=== PATIENT | male | born 1945 | race Caucasian/White ===

== ENCOUNTER 2016-03-09 13:44 | Outpatient (CLI) | payer MEDICARE, OTHER | END 2016-03-09 13:45 | disposition home or self-care (01) | DX: G47.33 Obstructive sleep apnea (adult) (pediatric) (principal) | CPT/HCPCS: 99214; G0463 ==

== ENCOUNTER 2016-04-04 19:29 | Outpatient (CLI) | payer MEDICARE, OTHER | END 2016-04-04 19:30 | disposition home or self-care (01) | DX: G47.33 Obstructive sleep apnea (adult) (pediatric) (principal); G47.61 Periodic limb movement disorder; Z68.41 Body mass index [BMI] 40.0-44.9, adult ==

== ENCOUNTER 2016-04-06 14:43 | Outpatient (CLI) | payer MEDICARE, OTHER | END 2016-04-06 14:44 | disposition home or self-care (01) | LOC: SC 14:43 | PROVIDERS: ATTEND Nurse Practitioner Family | DX: G47.33 Obstructive sleep apnea (adult) (pediatric) (principal) | CPT/HCPCS: 99214; G0463; 99212 ==

== ENCOUNTER 2016-05-17 11:19 | Outpatient (CLI) | payer MEDICARE, OTHER | END 2016-05-17 11:20 | disposition home or self-care (01) | DX: G47.33 Obstructive sleep apnea (adult) (pediatric) (principal); G47.61 Periodic limb movement disorder | CPT/HCPCS: 99215; G0463 ==

== ENCOUNTER 2016-05-30 09:09 | Outpatient (CLI) | payer MEDICARE, OTHER | END 2016-05-30 09:10 | DX: E11.9 Type 2 diabetes mellitus without complications (principal); G47.9 Sleep disorder, unspecified; M51.86 Other intervertebral disc disorders, lumbar region; I10 Essential (primary) hypertension ==

== ENCOUNTER 2016-06-15 10:43 | Outpatient (CLI) | payer MEDICARE, OTHER | END 2016-06-15 10:44 | disposition home or self-care (01) | DX: G47.33 Obstructive sleep apnea (adult) (pediatric) (principal) | CPT/HCPCS: 99213; G0463 ==

== ENCOUNTER 2016-09-14 10:37 | Outpatient (CLI) | payer MEDICARE, OTHER | END 2016-09-14 10:38 | disposition home or self-care (01) | LOC: SC 10:37 | PROVIDERS: ATTEND Nurse Practitioner Family | DX: G47.33 Obstructive sleep apnea (adult) (pediatric) (principal) | CPT/HCPCS: 99214; G0463; 99212 ==

== ENCOUNTER 2016-12-08 15:09 | Outpatient (CLI) | payer MEDICARE, OTHER ==
[2016-12-08 14:08] LABS: ALBUMIN/GLOBULIN RATIO 1.1 (1.0-2.2); BILIRUBIN,TOTAL 0.6 mg/dL (0.2-1.0); CALCIUM 9.2 mg/dL (8.5-10.3); CREATININE 1.1 mg/dL (0.6-1.2); POTASSIUM 4.1 mmol/L (3.5-5.0); TOTAL PROTEIN 7.5 g/dL (6.7-8.2)
[2016-12-08 14:28] LABS: HEMOGLOBIN A1C 0.73 g/dL
== END 2016-12-08 15:10 | disposition home or self-care (01) ==
LOC: LAB.WCP 15:09
PROVIDERS: ATTEND Family Medicine
DX: E11.9 Type 2 diabetes mellitus without complications (principal); M51.86 Other intervertebral disc disorders, lumbar region; I63.9 Cerebral infarction, unspecified; I25.10 Atherosclerotic heart disease of native coronary artery without angina pectoris
CPT/HCPCS: 36415; 80053; 83036

== ENCOUNTER 2016-12-15 10:15 | Outpatient (CLI) | payer MEDICARE, OTHER | END 2016-12-15 10:16 | disposition home or self-care (01) | LOC: SC 10:15 | PROVIDERS: ATTEND Nurse Practitioner Family | DX: G47.33 Obstructive sleep apnea (adult) (pediatric) (principal) | CPT/HCPCS: 99213; G0463; 99212 ==

== ENCOUNTER 2017-06-23 10:19 | Outpatient (CLI) | payer MEDICARE, OTHER ==
[2017-06-23 13:33] LABS: HB2 TOTAL 16.4 g/dL; HEMOGLOBIN A1C 0.78 g/dL; HEMOGLOBIN A1C % 6.5 % (4.6-6.2)
[2017-06-23 13:47] LABS: ALBUMIN 4.1 g/dL (3.2-5.5); ALBUMIN/GLOBULIN RATIO 1.1 (1.0-2.2); BILIRUBIN,TOTAL 0.7 mg/dL (0.2-1.0); CALCIUM 9.1 mg/dL (8.5-10.3); TOTAL PROTEIN 7.8 g/dL (6.7-8.2)
== END 2017-06-23 10:20 | disposition home or self-care (01) ==
LOC: LAB.WCP 10:19
PROVIDERS: ATTEND Family Medicine
DX: E11.9 Type 2 diabetes mellitus without complications (principal)
CPT/HCPCS: 36415; 80053; 83036

== ENCOUNTER 2017-07-14 09:13 | Outpatient (CLI) | payer MEDICARE, OTHER ==
[2017-07-14] MEDS ORDERED: ALBUTEROL NEB 2.5 MG/3 ML INH ONE (11:00)
--- NOTE | 2017-07-14 13:30 | CT Report ---
CT CHEST WITHOUT CONTRAST: 07/14/2017 CLINICAL INDICATION: Dyspnea. TECHNIQUE: Axial CT images of the chest were obtained without intravenous contrast. COMPARISON: No previous chest CT is available for comparison. FINDINGS: The heart and great vessels demonstrate postoperative changes of previous cardiac surgery and mild atherosclerotic calcifications. No hilar or mediastinal lymphadenopathy is appreciated. Lungs are clear. No effusion or pneumothorax is present. Osseous structures demonstrate degenerative and postoperative changes. Limited evaluation of the upper abdominal structures demonstrates normal adrenal glands. IMPRESSION: POSTOPERATIVE CHANGES. NO EVIDENCE OF ACUTE CARDIOPULMONARY DISEASE. CT DOSE REDUCTION STATEMENT In accordance with CT protocol optimization, one or more of the following dose reduction techniques were utilized for this exam: automated exposure control, adjustment of mA and/or KV based on patient size, or use of iterative reconstructive technique. TD: 07/14/2017 11:10
== END 2017-07-14 09:14 | disposition home or self-care (01) ==
LOC: DI 09:13
PROVIDERS: ATTEND Family Medicine
DX: R06.00 Dyspnea, unspecified (principal); Z77.090 Contact with and (suspected) exposure to asbestos
CPT/HCPCS: 71250; 94060; 94729

== ENCOUNTER 2018-05-29 07:35 | Emergency (ER) | payer MEDICARE, OTHER ==
--- NOTE | 2018-05-29 07:55 | ED Physician Documentation ---
PD HPI MALE - Stated complaint Stated Complaint: UNABLE TO URINATE - Chief complaint Chief Complaint: Abd Pain - History obtained from History obtained from: Patient - History of Present Illness Timing - onset: How many days ago (3) Timing - duration: Days (3) Timing - details: Abrupt onset, Still present Associated symptoms: Unable to urinate Similar symptoms before: Diagnosis (urinary retention) Recently seen: Not recently seen - Additional information Additional information: 72-year-old male who is not been into see the doctor in over a year has developed acute urinary retention. He states this is happened to him once previ ously he is not been able to urinate since Monday. Today is Monday. He indicates that he is developed some increasing pain in his lower abdomen over the last 24 hours. He is accompanied here by his son who indicates that he may have some of his days mixed up. Review of Systems Constitutional: denies: Fever Eyes: denies: Decreased vision Ears: denies: Ear pain Nose: denies: Congestion Throat: denies: Sore throat Cardiac: denies: Chest pain / pressure Respiratory: denies: Dyspnea, Cough GI: reports: Abdominal Pain. denies: Nausea, Vomiting, Constipation, Diarrhea : reports: Unable to Void Skin: denies: Rash Musculoskeletal: denies: Neck pain, Back pain, Extremity pain PD PAST MEDICAL HISTORY - Past Medical History Cardiovascular: [place] - Past Surgical History Ortho: Carpal Tunnel surgery Cardiovascular: CABG - Allergies Allergies/Adverse Reactions: Allergies Allergy/AdvReac Type Severity Reaction Status Date / Time No Known Drug Allergies Allergy Verified 05/29/18 07:50 PD ED PE NORMAL - Vitals Vital signs reviewed: Yes (tachy and hypertensive marked. 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, No motor deficit, No sensory deficit, Normal speech Eye Opening: Spontaneous Motor: Obeys Commands Verbal: Oriented GCS Score: 15 - Psych Psych: Normal mood, Normal affect Results - Vitals Vitals: Vital Signs - 24 hr 05/29/18 05/29/18 07:47 09:01 Temperature 36.2 C L Heart Rate 132 H 94 Respiratory 24 18 Rate Blood Pressure 166/121 H 141/94 H O2 Saturation 96 96 Oxygen O2 Source Room air - Labs Labs: Laboratory Tests 05/29/18 07:55 Urine Color YELLOW Urine Clarity CLEAR Urine pH 7.0 Ur Specific [place] 1.015 Urine Protein NEGATIVE Urine Glucose (UA) NEGATIVE Urine Ketones NEGATIVE Urine Occult Blood NEGATIVE Urine Nitrite NEGATIVE Urine Bilirubin NEGATIVE Urine Urobilinogen 0.2 (NORMAL) Ur Leukocyte Esterase NEGATIVE Ur Microscopic Review NOT INDICATED Urine Culture Comments NOT INDICATED PD MEDICAL DECISION MAKING - ED course Complexity details: reviewed results, re-evaluated patient, considered differential, d/w patient, d/w family ED course: 72-year-old male with acute urinary retention has Womack catheter placed with greater than 1 L of urine return. He will need to keep his catheter in place until follow-up Departure - Departure Disposition: 01 Home, Self Care Clinical Impression: Urinary retention Condition: Stable Instructions: ED Retention Urinary Male Follow-Up: Abran Burt MD [Primary Care Provider] -
[2018-05-29 08:17] LABS: BILIRUBIN,URINE NEGATIVE (NEGATIVE); GLUCOSE, URINE (UA) NEGATIVE (NEGATIVE); KETONES,URINE (UA) NEGATIVE (NEGATIVE); LEUKOCYTE ESTERASE, URINE NEGATIVE (NEGATIVE); NITRITE,URINE NEGATIVE (NEGATIVE); OCCULT BLOOD,URINE NEGATIVE (NEGATIVE); PROTEIN,URINE NEGATIVE (NEGATIVE); UROBILINOGEN,URINE 0.2 (NORMAL) E.U./dL (NORMAL)
[2018-05-29 08:33] LABS: CLARITY,URINE CLEAR (CLEAR)
[2018-05-29 09:01] VITALS: BP 141/94
== END 2018-05-29 09:28 | disposition home or self-care (01) ==
LOC: ED 07:35
DX: R33.9 Retention of urine, unspecified (principal)
CPT/HCPCS: 51702; 81001; 81003; 87086; 99283

== ENCOUNTER 2018-06-04 08:00 | Outpatient (CLI) | payer MEDICARE, OTHER ==
[2018-06-04 13:08] LABS: BILIRUBIN,URINE NEGATIVE (NEGATIVE); GLUCOSE, URINE (UA) NEGATIVE (NEGATIVE); KETONES,URINE (UA) NEGATIVE (NEGATIVE); LEUKOCYTE ESTERASE, URINE MODERATE (NEGATIVE); NITRITE,URINE NEGATIVE (NEGATIVE); OCCULT BLOOD,URINE NEGATIVE (NEGATIVE); PROTEIN,URINE NEGATIVE (NEGATIVE); UROBILINOGEN,URINE 0.2 (NORMAL) E.U./dL (NORMAL)
[2018-06-04 13:11] LABS: CLARITY,URINE HAZY (CLEAR)
[2018-06-04 13:24] LABS: BACTERIA,URINE Few /HPF (None Seen); MUCUS,URINE Few Strands; RBC,URINE 0-5 /HPF (0-5); SQUAMOUS EPITHELIAL CELL,UR RARE Squamous (<= Few)
== END 2018-06-04 23:59 | disposition home or self-care (01) ==
LOC: LAB.WCP 08:00
PROVIDERS: ATTEND Family Medicine
DX: R31.9 Hematuria, unspecified (principal)
CPT/HCPCS: 36415; 81001; 81003; 87077; 87086; 87181

== ENCOUNTER 2018-06-08 08:00 | Outpatient (CLI) | payer MEDICARE, OTHER ==
[2018-06-08 13:01] LABS: BASOPHILS % (AUTO) 0.4 %; EOSINOPHILS # (AUTO) 0.2 10^3/uL (0.0-0.7); EOSINOPHILS % (AUTO) 1.8 %; HGB - HEMOGLOBIN 14.1 g/dL (14.0-18.0); LYMPHOCYTES # (AUTO) 2.1 10^3/uL (1.5-3.5); LYMPHOCYTES % (AUTO) 20.1 %; MEAN CORPUSCULAR HEMOGLOBIN 29.6 pg (27.0-31.0); MEAN CORPUSCULAR HGB CONC 33.1 g/dL (32.0-36.0); MEAN CORPUSCULAR VOLUME 89.5 fL (80.0-94.0); MEAN PLATELET VOLUME 7.7 fL (7.4-11.4); MONOCYTES # (AUTO) 0.7 10^3/uL (0.0-1.0); NEUTROPHILS # (AUTO) 7.5 10^3/uL (1.5-6.6); NEUTROPHILS % (AUTO) 70.7 %; PLT - PLATELET COUNT 314 10^3/uL (130-450); RED BLOOD COUNT 4.77 10^6/uL (4.70-6.10); RED CELL DISTRIBUTION WIDTH 14.1 % (12.0-15.0); WHITE BLOOD COUNT 10.6 x10^3/uL (4.8-10.8)
[2018-06-08 13:37] LABS: ALBUMIN 3.9 g/dL (3.2-5.5); ALKALINE PHOSPHATASE 69 IU/L (42-121); ALT ALANINE AMINOTRANSFERASE 20 IU/L (10-60); AST ASPARTATE AMINOTRANSFERASE 21 IU/L (10-42); BILIRUBIN,TOTAL 0.6 mg/dL (0.2-1.0); BUN - BLOOD UREA NITROGEN 15 mg/dL (6-20); CALCIUM 9.6 mg/dL (8.5-10.3); CARBON DIOXIDE - CO2 32 mmol/L (21-32); CHLORIDE 100 mmol/L (101-111); CHOL/HDL RATIO 2.8 (<5.0); CHOLESTEROL 176 mg/dL; GFR - MDRD 73 (>89); GLUCOSE 132 mg/dL (70-100); HDL CHOLESTEROL 63 mg/dL; LDL CHOLESTEROL,CALCULATED 96 mg/dL; LDL/HDL RATIO 1.5 (<3.6); SODIUM 138 mmol/L (135-145); TOTAL PROTEIN 7.7 g/dL (6.7-8.2); VLDL CHOLESTEROL 17 mg/dL
== END 2018-06-08 23:59 | disposition home or self-care (01) ==
LOC: LAB.WCP 08:00
PROVIDERS: ATTEND Family Medicine
DX: I63.9 Cerebral infarction, unspecified (principal); I10 Essential (primary) hypertension; E78.5 Hyperlipidemia, unspecified
CPT/HCPCS: 36415; 80053; 80061; 83721; 84443; 85025

== ENCOUNTER 2018-07-16 11:30 | Outpatient (CLI) | payer MEDICARE, OTHER ==
[2018-07-16 19:25] LABS: CREATININE,URINE 263.3 mg/dL; MICROALBUMIN,URINE 2.9 mg/dL (0-300.0)
[2018-07-16 20:04] LABS: HB2 TOTAL 14.4 g/dL; HEMOGLOBIN A1C 0.83 g/dL; HEMOGLOBIN A1C % 7.4 % (4.6-6.2)
== END 2018-07-16 11:31 | disposition home or self-care (01) ==
LOC: LAB.WCP 11:30
PROVIDERS: ATTEND Family Medicine
DX: E11.9 Type 2 diabetes mellitus without complications (principal)
CPT/HCPCS: 36415; 82043; 82570; 83036

== ENCOUNTER 2018-07-24 12:18 | Outpatient (CLI) | payer MEDICARE, OTHER | END 2018-07-24 12:19 | disposition home or self-care (01) | LOC: LAB.WCP 12:18 | PROVIDERS: ATTEND Family Medicine | DX: R41.3 Other amnesia (principal) | CPT/HCPCS: 36415; 82607; 83921 ==

== ENCOUNTER 2018-07-26 09:51 | Outpatient (CLI) | payer MEDICARE, OTHER ==
[2018-07-26] MEDS ORDERED: GADOBUTROL 15 MMOL/15 ML VIAL IVP ONE (10:37)
[2018-07-26] MEDS ORDERED: GADOBUTROL 15 MMOL/15 ML VIAL ONE (10:42)
--- NOTE | 2018-07-26 20:10 | MRI Report ---
Reason: MEMORY IMPAIRMENT,CVA Procedure Date: 07/26/2018 Accession Number: [id number] / [id number] Procedure: MRI - Brain W/WO CPT Code: FULL RESULT: EXAM: MRI BRAIN WITHOUT AND WITH CONTRAST EXAM DATE: 07/26/2018 11:00 AM. CLINICAL HISTORY: MEMORY IMPAIRMENT,CVA. COMPARISON: BRAIN W/WO 05/20/2013 3:52 PM. TECHNIQUE: Multiplanar, multisequence T1-weighted and fluid-sensitive MR sequences of the brain were performed. Sequences optimized for routine evaluation. Other: None. IV Contrast: Without and with contrast, 12 cc of Gadavist. FINDINGS: Diffusion weighted sequence shows no evidence for acute infarct. There is no mass, mass effect, midline shift or abnormal extraaxial fluid collection. Size and configuration of the ventricles are normal. Chronic lacunar type infarcts in right thalamus, left posterolateral thalamus and posterior left putamen/baugh radiata. Ill-defined T2 hyperintensities are seen in the periventricular and deep cerebral white matter bilaterally compatible with chronic microvascular angiopathy. Ill-defined T2 hyperintensity also seen in the dorsal and central billie, slightly progressive compared to previous study 05/20/2013. Major intracranial flow voids appear normal. Limited evaluation of the arteries and dural venous sinus structures on postcontrast imaging appears normal. There is no abnormal enhancement. Globes, orbits, optic nerve sheath complex, optic chiasm, pituitary, cavernous sinus and Meckel's cave appear normal. Paranasal sinuses and mastoid air cells appear well aerated. Marrow signal and extracranial soft tissue appear normal. Craniocervical junction and visualized upper cervical cord appear unremarkable. IMPRESSION: 1. No acute infarct, intracranial hemorrhage, midline shift, or hydrocephalus. 2. Remote lacunar type infarcts in the left baugh radiata, in bilateral thalami, unchanged. 3. Ill-defined nonspecific T2 hyperintensities in the periventricular and deep supratentorial cerebral white matter bilaterally similar to MRI brain 05/20/2013, most likely chronic microvascular angiopathy. Ill-defined T2 hyperintensities in the central and dorsal billie appear increased compared to 2013, likely interval progressive microvascular changes. 4. Qualitatively, there is progressive left greater than right hippocampal volume loss as evidenced by increased size of the left temporal horn. Findings could be correlated with progressive neurodegenerative etiology such as Alzheimer's type dementia. RADIA
== END 2018-07-26 09:52 | disposition home or self-care (01) ==
LOC: DI 09:51
PROVIDERS: ATTEND Family Medicine
DX: R41.3 Other amnesia (principal); Z86.73 Personal history of transient ischemic attack (TIA), and cerebral infarction without residual deficits; R93.0 Abnormal findings on diagnostic imaging of skull and head, not elsewhere classified
CPT/HCPCS: 70553; A9585

== ENCOUNTER 2018-08-08 21:26 | Outpatient (CLI) | payer MEDICARE, OTHER | END 2018-08-08 21:27 | disposition EMS.NT | LOC: EMS 21:26 | PROVIDERS: ATTEND Surgery | DX: Z03.89 Encounter for observation for other suspected diseases and conditions ruled out (principal) ==

== ENCOUNTER 2018-08-09 12:59 | Emergency (ER) | payer MEDICARE, OTHER ==
--- NOTE | 2018-08-09 13:01 | ED Physician Documentation ---
PD HPI MALE - Stated complaint Stated Complaint: MALE - History obtained from History obtained from: Patient - History of Present Illness Timing - onset: Today, Last night Timing - duration: Days (1/2) Timing - details: Abrupt onset, Still present Associated symptoms: Unable to urinate Similar symptoms before: Diagnosis (UTI with retention.) Review of Systems Constitutional: denies: Fever, Chills GI: denies: Abdominal Pain, Nausea, Vomiting, Diarrhea : reports: Frequency, Incontinent (For the last week or so) PD PAST MEDICAL HISTORY - Past Medical History Cardiovascular: CT Neuro: CVA - Past Surgical History Ortho: Carpal Tunnel surgery Cardiovascular: CABG - Present Medications Home Medications: Ambulatory Orders Medication Instructions Recorded Confirmed Cephalexin [Keflex] 500 mg PO TID #20 capsule 08/09/18 - Allergies Allergies/Adverse Reactions: Allergies Allergy/AdvReac Type Severity Reaction Status Date / Time lisinopril Allergy Unknown Verified 08/09/18 13:06 horse serum Allergy Unknown Uncoded 08/09/18 13:06 - Social History Does the pt smoke?: No Smoking Status: Never smoker PD ED PE NORMAL - Vitals Vital signs reviewed: Yes - General General: Alert and oriented X 3 (poor short term memory), No acute distress, Well developed/nourished - Abdomen Abdomen: Soft, Non tender - Male Male : Other (normal external genitalia) - Back Back: No CVA TTP - Derm Derm: Normal color, Warm and dry Results - Vitals Vitals: Vital Signs - 24 hr 08/09/18 13:03 Temperature 36.7 C Heart Rate 53 L Respiratory 18 Rate Blood Pressure 151/105 H O2 Saturation 96 Oxygen O2 Source Room air - Labs Labs: Laboratory Tests 08/09/18 14:10 Urine Color YELLOW Urine Clarity CLEAR Urine pH 6.0 Ur Specific [place] <=1.005 Urine Protein NEGATIVE Urine Glucose (UA) NEGATIVE Urine Ketones NEGATIVE Urine Occult Blood NEGATIVE Urine Nitrite NEGATIVE Urine Bilirubin NEGATIVE Urine Urobilinogen 0.2 (NORMAL) Ur Leukocyte Esterase SMALL H Urine RBC None Seen Urine WBC 4-5 Ur Squamous Epith Cells NONE SEEN Urine Bacteria Moderate H Urine Casts 0-2 Hyaline Casts Ur Microscopic Review INDICATED Urine Culture Comments INDICATED PD MEDICAL DECISION MAKING - ED course Complexity details: considered differential (The patient was having symptoms consistent with urinary retention. Bladder scanner showed greater than 700 mL. A Womack catheter was placed which improved his symptoms quite a bit and he drained readily without any bladder clots. There is a trace of UTI on her his urine test. We will keep the Womack in place to a leg bag and prescribe antibiotics. We will have him follow-up with his primary care early next week which would be about 4 days, to have the catheter removed and see if he is able to urinate better at that point after the antibiotics have had time to work.), d/w patient, d/w family (son) Departure - Departure Disposition: Home, Self Care Clinical Impression: Acute urinary retention UTI (urinary tract infection) Qualifiers: Urinary tract infection type: acute cystitis Hematuria presence: without hematuria Qualified Code(s): N30.00 - Acute cystitis without hematuria Condition: Stable Record reviewed to determine appropriate education?: Yes Instructions: ED UTI Cystitis Male Follow-Up: Abran Burt MD [Primary Care Provider] - Prescriptions: Cephalexin [Keflex] 500 mg PO TID #20 capsule Comments: There does appear to be some infection on the urine test. The culture will result in a few days to confirm. Meanwhile we will treated with cephalexin antibiotic 3 times a day for a week. We will have you keep the Womack catheter in until early next week to give time for the antibiotic to help clear the infection and that should promote the ability to urinate once the catheter is out. Call your primary care today or tomorrow for a follow-up appointment for early next week for catheter removal. Alternatively he can return to the ER.
[2018-08-09 13:06] VITALS: BP 151/105
[2018-08-09] MEDS ORDERED: LIDOCAINE 2% URO-JET 5 ML SYRINGE UR STA (13:28)
[2018-08-09 14:20] LABS: BILIRUBIN,URINE NEGATIVE (NEGATIVE); GLUCOSE, URINE (UA) NEGATIVE (NEGATIVE); KETONES,URINE (UA) NEGATIVE (NEGATIVE); LEUKOCYTE ESTERASE, URINE SMALL (NEGATIVE); NITRITE,URINE NEGATIVE (NEGATIVE); OCCULT BLOOD,URINE NEGATIVE (NEGATIVE); PROTEIN,URINE NEGATIVE (NEGATIVE); UROBILINOGEN,URINE 0.2 (NORMAL) E.U./dL (NORMAL)
[2018-08-09 14:23] LABS: CLARITY,URINE CLEAR (CLEAR)
[2018-08-09 14:36] LABS: BACTERIA,URINE Moderate /HPF (None Seen); CASTS, URINE 0-2 Hyaline Casts /LPF; RBC,URINE None Seen /HPF (0-5); SQUAMOUS EPITHELIAL CELL,UR NONE SEEN (<= Few)
[2018-08-09] MEDS ORDERED: cephALEXin 250 MG CAPSULE PO STA (14:43)
== END 2018-08-09 15:19 | disposition home or self-care (01) ==
LOC: ED 12:59
DX: N30.00 Acute cystitis without hematuria (principal); R33.9 Retention of urine, unspecified
CPT/HCPCS: 51703; 81001; 87077; 87086; 87181; 99283; A9270; 81003

== ENCOUNTER 2018-08-13 16:53 | Emergency (ER) | payer MEDICARE, OTHER ==
--- NOTE | 2018-08-13 17:44 | ED Physician Documentation ---
PD HPI MALE - Stated complaint Stated Complaint: MALE - Chief complaint Chief Complaint: General - History obtained from History obtained from: Patient - History of Present Illness Timing - onset: How many days ago (had urinary retention and UTI, on meds. Son says patient is very weak and not wanting to eat nor drink. Son also noted some drainage/pus around the meatus where pitts goes in.) Timing - details: Gradual onset, Still present Associated symptoms: Genital sore / lesion (discharge at meatus) Review of Systems Constitutional: denies: Fever Nose: denies: Rhinorrhea / runny nose, Congestion Respiratory: denies: Dyspnea, Cough GI: denies: Abdominal Pain, Vomiting, Diarrhea PD PAST MEDICAL HISTORY - Past Medical History Cardiovascular: [place] Neuro: CVA : Retention - Past Surgical History Past Surgical History: Yes Ortho: Carpal Tunnel surgery Cardiovascular: CABG - Present Medications Home Medications: Ambulatory Orders Medication Instructions Recorded Confirmed Cephalexin [Keflex] 500 mg PO TID #20 capsule 08/09/18 Nystatin 1 applic TP TID #15 oint...g. 08/13/18 - Allergies Allergies/Adverse Reactions: Allergies Allergy/AdvReac Type Severity Reaction Status Date / Time lisinopril Allergy Unknown Verified 08/13/18 17:07 horse serum Allergy Unknown Uncoded 08/09/18 13:06 - Social History Does the pt smoke?: No Smoking Status: Never smoker PD ED PE NORMAL - Vitals Vital signs reviewed: Yes - General General: Alert and oriented X 3, No acute distress, Well developed/nourished - HEENT HEENT: No: Moist mucous membranes - Neck Neck: Supple, no meningeal sign, No adenopathy - Cardiac Cardiac: RRR, No murmur - Respiratory Respiratory: Clear bilaterally - Abdomen Abdomen: Normal bowel sounds, Soft, Non tender - Male Male : Other (pitts in place and draining. There is some whitish discharge around the meatus and pitts, looking maybe yeast. Culture obtained. ) - Back Back: No CVA TTP - Derm Derm: Normal color, Warm and dry Results - Vitals Vitals: Oxygen O2 Source Room air - Labs Labs: Microbiology 08/13/18 18:25 Urine Culture - Final Urine,Catheterized NO AEROBIC GROWTH AT 24 HOURS 08/13/18 18:11 Wound Culture - Preliminary Skin - Penile Laboratory Tests 08/13/18 08/13/18 08/13/18 18:25 18:32 18:32 WBC 15.6 H RBC 4.08 L Hgb 11.4 L Hct 34.4 L MCV 84.4 MCH 27.9 MCHC 33.1 RDW 13.9 Plt Count 592 H MPV 6.5 L Neut # (Auto) 12.5 H Lymph # (Auto) 1.5 [place] # (Auto) 1.3 H Eos # (Auto) 0.3 Baso # (Auto) 0.1 Absolute Nucleated RBC 0.00 Nucleated RBC % 0.0 Sodium 130 L Potassium 3.8 Chloride 91 L Carbon Dioxide 28 Anion Gap 11.0 BUN 17 Creatinine 0.9 Estimated GFR (MDRD) 82 L Glucose 109 H Lactic Acid Calcium 9.2 Magnesium 1.6 L Total Bilirubin 0.6 AST 37 ALT 51 Alkaline Phosphatase 109 Total Protein 7.1 Albumin 2.3 L Globulin 4.8 H Albumin/Globulin Ratio 0.5 L Lipase 32 Urine Color YELLOW Urine Clarity CLEAR Urine pH 7.5 Ur Specific [place] 1.010 Urine Protein TRACE Urine Glucose (UA) NEGATIVE Urine Ketones NEGATIVE Urine Occult Blood NEGATIVE Urine Nitrite NEGATIVE Urine Bilirubin NEGATIVE Urine Urobilinogen 1 (NORMAL) Ur Leukocyte Esterase TRACE H Urine RBC None Seen Urine WBC 0-3 Ur Squamous Epith Cells NONE SEEN Urine Bacteria None Seen Urine Casts 0-2 Hyaline Casts Ur Microscopic Review INDICATED Urine Culture Comments INDICATED 08/13/18 18:32 WBC RBC Hgb Hct MCV MCH MCHC RDW Plt Count MPV Neut # (Auto) Lymph # (Auto) [place] # (Auto) Eos # (Auto) Baso # (Auto) Absolute Nucleated RBC Nucleated RBC % Sodium Potassium Chloride Carbon Dioxide Anion Gap BUN Creatinine Estimated GFR (MDRD) Glucose Lactic Acid 1.2 Calcium Magnesium Total Bilirubin AST ALT Alkaline Phosphatase Total Protein Albumin Globulin Albumin/Globulin Ratio Lipase Urine Color Urine Clarity Urine pH Ur Specific [place] Urine Protein Urine Glucose (UA) Urine Ketones Urine Occult Blood Urine Nitrite Urine Bilirubin Urine Urobilinogen Ur Leukocyte Esterase Urine RBC Urine WBC Ur Squamous Epith Cells Urine Bacteria Urine Casts Ur Microscopic Review Urine Culture Comments PD MEDICAL DECISION MAKING - ED course Complexity details: considered differential (Son says he is seeking help through PMD for home health aide or assisted living, feeling he is not able to continue full care of his father, needing help. I put in SW and Home Health referrals to see if they can provide help.), d/w patient Departure - Departure Disposition: 01 Home, Self Care Clinical Impression: Infection of penis, General weakness Condition: Stable Record reviewed to determine appropriate education?: Yes Follow-Up: Abran Burt MD [Primary Care Provider] - Prescriptions: Nystatin 1 applic TP TID #15 oint...g. Comments: Continue the Pitts catheter for now. Follow-up with your primary care in a few more days. It does look like the bladder infection is clearing based on the urine test. I think the discharge around the tip of the penis may be a small fungal infection and use some nystatin cream 2-3 times a day to that area. Encourage frequent fluids. I did put in consults to our social work and home health nursing to see if they can provide assistance for assessments at home and treatment there and also help for care in home for you. They also could possibly provide information for placement if the if you feel that becomes necessary. I presume they will call you in the morning or sometime tomorrow to help with information. Discharge Date/Time: 08/13/18 21:25
[2018-08-13] MEDS ORDERED: SODIUM CHLORIDE 0.9% 1,000 ML IV ONE (18:16)
[2018-08-13 18:38] LABS: BASOPHILS # (AUTO) 0.1 10^3/uL (0.0-0.1); BASOPHILS % (AUTO) 0.3 %; EOSINOPHILS # (AUTO) 0.3 10^3/uL (0.0-0.7); EOSINOPHILS % (AUTO) 1.8 %; HGB - HEMOGLOBIN 11.4 g/dL (14.0-18.0); LYMPHOCYTES # (AUTO) 1.5 10^3/uL (1.5-3.5); LYMPHOCYTES % (AUTO) 9.7 %; MEAN CORPUSCULAR HEMOGLOBIN 27.9 pg (27.0-31.0); MEAN CORPUSCULAR HGB CONC 33.1 g/dL (32.0-36.0); MEAN CORPUSCULAR VOLUME 84.4 fL (80.0-94.0); MEAN PLATELET VOLUME 6.5 fL (7.4-11.4); MONOCYTES # (AUTO) 1.3 10^3/uL (0.0-1.0); MONOCYTES % (AUTO) 8.5 %; NEUTROPHILS # (AUTO) 12.5 10^3/uL (1.5-6.6); NEUTROPHILS % (AUTO) 79.7 %; PLT - PLATELET COUNT 592 10^3/uL (130-450); RED BLOOD COUNT 4.08 10^6/uL (4.70-6.10); RED CELL DISTRIBUTION WIDTH 13.9 % (12.0-15.0); WHITE BLOOD COUNT 15.6 x10^3/uL (4.8-10.8)
[2018-08-13 18:38] LABS: BILIRUBIN,URINE NEGATIVE (NEGATIVE); GLUCOSE, URINE (UA) NEGATIVE (NEGATIVE); KETONES,URINE (UA) NEGATIVE (NEGATIVE); LEUKOCYTE ESTERASE, URINE TRACE (NEGATIVE); NITRITE,URINE NEGATIVE (NEGATIVE); OCCULT BLOOD,URINE NEGATIVE (NEGATIVE); PH,URINE 7.5 PH (5.0-7.5); PROTEIN,URINE TRACE mg/dL (NEGATIVE); UROBILINOGEN,URINE 1 (NORMAL) E.U./dL (NORMAL)
[2018-08-13 18:41] LABS: CLARITY,URINE CLEAR (CLEAR)
[2018-08-13 18:49] LABS: BACTERIA,URINE None Seen /HPF (None Seen); RBC,URINE None Seen /HPF (0-5); SQUAMOUS EPITHELIAL CELL,UR NONE SEEN (<= Few)
[2018-08-13 18:50] LABS: CASTS, URINE 0-2 Hyaline Casts /LPF
[2018-08-13 18:51] LABS: ALBUMIN 2.3 g/dL (3.2-5.5); ALBUMIN/GLOBULIN RATIO 0.5 (1.0-2.2); BILIRUBIN,TOTAL 0.6 mg/dL (0.2-1.0); CALCIUM 9.2 mg/dL (8.5-10.3); CREATININE 0.9 mg/dL (0.6-1.2); MAGNESIUM 1.6 mg/dL (1.7-2.8); TOTAL PROTEIN 7.1 g/dL (6.7-8.2)
[2018-08-13] MEDS ORDERED: MAGNESIUM SULFATE 2 GRAM 2 GM/50 ML BAG IV ONE (19:11)
[2018-08-13] MEDS ORDERED: FLUCONAZOLE 100 MG TABLET PO STA (19:49)
[2018-08-13 21:17] VITALS: BP 125/79
== END 2018-08-13 21:25 | disposition home or self-care (01) ==
LOC: ED 16:53
DX: N48.29 Other inflammatory disorders of penis (principal); R53.1 Weakness; Z86.73 Personal history of transient ischemic attack (TIA), and cerebral infarction without residual deficits
CPT/HCPCS: 36415; 80053; 81001; 83605; 83690; 83735; 85025; 87070; 87086; 87205; 96374; 99283; 99284; A9270; 81003; 87077; 87181

== ENCOUNTER 2018-08-27 11:56 | Outpatient (CLI) | payer MEDICARE, OTHER | END 2018-08-27 11:57 | disposition critical access hospital (66) | LOC: EMS 11:56 | PROVIDERS: ATTEND Surgery | DX: R53.1 Weakness (principal); R11.2 Nausea with vomiting, unspecified; R07.9 Chest pain, unspecified | CPT/HCPCS: A0425; A0427 ==

== ENCOUNTER 2018-08-27 12:32 | Inpatient (IN) | payer MEDICARE, OTHER ==
[2018-08-27 13:13] LABS: GLUCOSE, URINE (UA) NEGATIVE (NEGATIVE); KETONES,URINE (UA) 15 mg/dL (NEGATIVE); LEUKOCYTE ESTERASE, URINE NEGATIVE (NEGATIVE); NITRITE,URINE NEGATIVE (NEGATIVE); OCCULT BLOOD,URINE SMALL (NEGATIVE); PH,URINE 5.5 PH (5.0-7.5); PROTEIN,URINE 30 mg/dL (NEGATIVE); UROBILINOGEN,URINE 1 (NORMAL) E.U./dL (NORMAL)
[2018-08-27 13:17] LABS: BILIRUBIN,URINE NEGATIVE (NEGATIVE); CLARITY,URINE CLEAR (CLEAR); ICTOTEST,URINE NEGATIVE
[2018-08-27 13:26] LABS: RBC,URINE 0-5 /HPF (0-5)
[2018-08-27 13:27] LABS: AMORPHOUS SEDIMENT,UR Few /LPF; BACTERIA,URINE Rare /HPF (None Seen); SQUAMOUS EPITHELIAL CELL,UR NONE SEEN (<= Few)
[2018-08-27 13:27] LABS: BASOPHILS # (AUTO) 0.1 10^3/uL (0.0-0.1); BASOPHILS % (AUTO) 0.4 %; EOSINOPHILS % (AUTO) 0.1 %; HGB - HEMOGLOBIN 12.1 g/dL (14.0-18.0); LYMPHOCYTES # (AUTO) 1.2 10^3/uL (1.5-3.5); LYMPHOCYTES % (AUTO) 5.4 %; MEAN CORPUSCULAR HEMOGLOBIN 27.4 pg (27.0-31.0); MEAN CORPUSCULAR HGB CONC 32.7 g/dL (32.0-36.0); MEAN CORPUSCULAR VOLUME 83.7 fL (80.0-94.0); MEAN PLATELET VOLUME 8.5 fL (7.4-11.4); MONOCYTES # (AUTO) 1.6 10^3/uL (0.0-1.0); MONOCYTES % (AUTO) 6.9 %; NEUTROPHILS # (AUTO) 19.6 10^3/uL (1.5-6.6); NEUTROPHILS % (AUTO) 85.5 %; PLT - PLATELET COUNT 599 10^3/uL (130-450); RED BLOOD COUNT 4.42 10^6/uL (4.70-6.10); RED CELL DISTRIBUTION WIDTH 13.5 % (12.0-15.0); WHITE BLOOD COUNT 22.9 x10^3/uL (4.8-10.8)
--- NOTE | 2018-08-27 13:28 | XRAY Report ---
Reason: weakness Procedure Date: 08/27/2018 Accession Number: [id number] / [id number] Procedure: XR - Chest 1 View X-Ray CPT Code: 22064 FULL RESULT: EXAM: CHEST RADIOGRAPHY EXAM DATE: 08/27/2018 01:14 PM. CLINICAL HISTORY: Weakness. COMPARISON: XR CHEST 1 VIEWS 07/21/2010 8:44 AM. TECHNIQUE: 1 view. FINDINGS: Lungs/Pleura: No focal airspace opacity. Lung volumes appear symmetric and without significant interval change. Negative for pneumothorax. Mediastinum: Heart size is normal. Trachea is midline. There is mild tortuosity and atherosclerotic calcification of the thoracic aorta. Other: None. IMPRESSION: Negative for an acute cardiopulmonary abnormality. RADIA
[2018-08-27] MEDS ORDERED: SODIUM CHLORIDE 0.9% 1,000 ML IV ONE ×3 (13:32→13:34)
[2018-08-27] MEDS ORDERED: cefTRIAXone 1 GM VIAL IVP STA (13:34)
--- NOTE | 2018-08-27 13:36 | ED Physician Documentation ---
History of Present Illness - Stated complaint Stated Complaint: WEAKNESS/L SIDE PAIN - Chief complaint Chief Complaint: Cardiac - History obtained from History obtained from: Patient, Family, EMS - History of Present Illness Timing: How many days ago (3) Pain level max: 0 Pain level now: 0 - Additonal information Additional information: 73-year-old male presents to the emergency department with increasing weakness and decreased mental status over the past 2 days. Recently treated for a catheter associated UTI. Has a chronic indwelling Womack. Son was unable to get him out of bed today. Patient is complaining of left shoulder pain as well. Worse with movement and better with rest. No fevers that they are aware of. He has been off antibiotics for 3 days. Has had nausea but no vomiting. No diarrhea. Family states that he slept all day yesterday in bed. Review of Systems Ten Systems: 10 systems reviewed and negative Constitutional: denies: Fever Throat: denies: Sore throat Cardiac: denies: Chest pain / pressure Respiratory: denies: Cough, Wheezing GI: denies: Vomiting, Diarrhea Skin: denies: Rash Musculoskeletal: denies: Neck pain, Back pain Neurologic: denies: Headache PD PAST MEDICAL HISTORY - Past Medical History Past Medical History: Yes Cardiovascular: IN Respiratory: None Neuro: CVA Endocrine/Autoimmune: None GI: None : Retention HEENT: None Psych: None Musculoskeletal: None Derm: None - Past Surgical History Past Surgical History: Yes Ortho: Carpal Tunnel surgery Cardiovascular: CABG - Present Medications Home Medications: Ambulatory Orders Medication Instructions Recorded Confirmed Acetaminophen 325 mg PO DAILY PRN 08/27/18 08/27/18 Baclofen 30 mg PO TID 08/27/18 08/27/18 Calcium Carbonate/Vitamin D3 1,200 mg PO DAILY 08/27/18 08/27/18 [Calcium 250-D Tablet] Clopidogrel [Plavix] 75 mg PO DAILY 08/27/18 08/27/18 Docusate Calcium 480 mg PO BID 08/27/18 08/27/18 Donepezil [Aricept] 5 mg PO DAILY 08/27/18 08/27/18 Finasteride 5 mg PO DAILY 08/27/18 08/27/18 Hydrochlorothiazide 25 mg PO DAILY 08/27/18 08/27/18 Losartan Potassium 100 mg PO DAILY 08/27/18 08/27/18 Metoprolol Tartrate 50 mg PO BID 08/27/18 08/27/18 Nitroglycerin 0.4 mg SL PRN PRN 08/27/18 08/27/18 [place]-3/Dha/Epa/Fish Oil [Fish Oil 1 tab PO DAILY 08/27/18 08/27/18 [place]-3 EC 1,200 mg] Simvastatin [Zocor] 40 mg PO DAILY 08/27/18 08/27/18 Tamsulosin [Flomax] 0.4 mg PO DAILY 08/27/18 08/27/18 Triamcinolone Acet/0.9%NaCl/Pf 80 mg REVIEW PRN PRN 08/27/18 08/27/18 [Triamcinolone Acet 80 mg/2 ml] Venlafaxine ER [Effexor ER] 75 mg PO DAILY 08/27/18 08/27/18 amLODIPine [Norvasc] 5 mg PO DAILY 08/27/18 08/27/18 metFORMIN [Glucophage] 500 mg PO DAILY 08/27/18 08/27/18 raNITIdine [Zantac] 300 mg PO BID 08/27/18 08/27/18 - Allergies Allergies/Adverse Reactions: Allergies Allergy/AdvReac Type Severity Reaction Status Date / Time lisinopril Allergy Unknown Verified 08/27/18 12:39 horse serum Allergy Unknown Uncoded 08/27/18 12:39 - Social History Does the pt smoke?: No Smoking Status: Never smoker Does the pt drink ETOH?: No Does the pt have substance abuse?: No - Immunizations Immunizations are current?: Yes - POLST Patient has POLST: No PD ED PE NORMAL - Vitals Vital signs reviewed: Yes - General General: No acute distress, Other (drowsy, but arousable.) - HEENT HEENT: Atraumatic, PERRL, Moist mucous membranes, Pharynx benign - Neck Neck: Supple, no meningeal sign - Cardiac Cardiac: RRR, Strong equal pulses - Respiratory Respiratory: No respiratory distress, Clear bilaterally - Abdomen Abdomen: Soft, Non tender, Non distended - Back Back: No spinal TTP - Derm Derm: Warm and dry - Extremities Extremities: Other (TTP L shoulder - limited ROM 2/2 pain. NVI.) - Neuro Neuro: Other (drowsy, but arousable) Results - Vitals Vitals: Vital Signs - 24 hr 08/27/18 08/27/18 08/27/18 12:35 12:42 15:06 Temperature 36.1 C L Heart Rate 98 118 H 108 H Respiratory 14 18 18 Rate Blood Pressure 118/81 H 102/71 108/74 O2 Saturation 92 92 93 Oxygen O2 Source Room air - Labs Labs: Laboratory Tests 08/27/18 08/27/18 08/27/18 13:00 13:07 13:07 WBC 22.9 H RBC 4.42 L Hgb 12.1 L Hct 37.0 L MCV 83.7 MCH 27.4 MCHC 32.7 RDW 13.5 Plt Count 599 H MPV 8.5 Neut # (Auto) 19.6 H Lymph # (Auto) 1.2 L [place] # (Auto) 1.6 H Eos # (Auto) 0.0 Baso # (Auto) 0.1 Absolute Nucleated RBC 0.00 Nucleated RBC % 0.0 Manual Slide Review Indicated RBC Morph Micro Appear 2+ ANISOCYTOSIS Sodium 131 L Potassium 3.6 Chloride 90 L Carbon Dioxide 24 Anion Gap 17.0 H BUN 15 Creatinine 1.0 Estimated GFR (MDRD) 73 L Glucose 188 H Lactic Acid Calcium 9.2 Total Bilirubin 1.3 H AST 66 H ALT 66 H Alkaline Phosphatase 147 H Troponin I Total Protein 7.6 Albumin 2.5 L Globulin 5.1 H Albumin/Globulin Ratio 0.5 L Lipase 40 Urine Color YELLOW Urine Clarity CLEAR Urine pH 5.5 Ur Specific [place] >=1.030 H Urine Protein 30 H Urine Glucose (UA) NEGATIVE Urine Ketones 15 H Urine Occult Blood SMALL H Urine Nitrite NEGATIVE Urine Bilirubin NEGATIVE Urine Urobilinogen 1 (NORMAL) Ur Leukocyte Esterase NEGATIVE Urine RBC 0-5 Urine WBC 0-3 Ur Squamous Epith Cells NONE SEEN Amorphous Sediment Few Urine Bacteria Rare Ur Microscopic Review INDICATED Urine Culture Comments NOT INDICATED 08/27/18 08/27/18 13:07 13:07 WBC RBC Hgb Hct MCV MCH MCHC RDW Plt Count MPV Neut # (Auto) Lymph # (Auto) [place] # (Auto) Eos # (Auto) Baso # (Auto) Absolute Nucleated RBC Nucleated RBC % Manual Slide Review RBC Morph Micro Appear Sodium Potassium Chloride Carbon Dioxide Anion Gap BUN Creatinine Estimated GFR (MDRD) Glucose Lactic Acid 1.2 Calcium Total Bilirubin AST ALT Alkaline Phosphatase Troponin I < 0.04 Total Protein Albumin Globulin Albumin/Globulin Ratio Lipase Urine Color Urine Clarity Urine pH Ur Specific [place] Urine Protein Urine Glucose (UA) Urine Ketones Urine Occult Blood Urine Nitrite Urine Bilirubin Urine Urobilinogen Ur Leukocyte Esterase Urine RBC Urine WBC Ur Squamous Epith Cells Amorphous Sediment Urine Bacteria Ur Microscopic Review Urine Culture Comments - Rads (name of study) L shoulder xray Radiology: Prelim report reviewed, EMP read contemporaneously (Moderate to marked degenerative changes), See rad report cxr Radiology: Prelim report reviewed, EMP read contemporaneously, See rad report (Negative for an acute cardiopulmonary abnormality. ) CT abd/pelvis Radiology: Prelim report reviewed, EMP read contemporaneously, See rad report (No significant inflammatory process or definite acute finding to explain clinical symptoms of abdominal pain. ) PD MEDICAL DECISION MAKING - ED course Complexity details: reviewed old records, reviewed results, re-evaluated patient, considered differential, d/w patient, d/w family, d/w technical assistance consultant ED course: 73-year-old male with leukocytosis of unclear etiology. He also has elevated liver tests, CT abdomen pelvis was performed, no acute findings. Possible recurrence UTI from his catheter? He also has hypertension and decreased mental status. Given IV fluids. Will place on antibiotics and will admit to the hospitalist. Discussed case with Dr. Andujar, hospitalist who accepts. Blood cultures were drawn as well. This document was made in part using voice recognition software. While efforts are made to proofread this document, sound alike and grammatical errors may occur. Departure - Departure Disposition: [facility] DC/Xfer Clinical Impression: Leukocytosis Qualifiers: Leukocytosis type: unspecified Qualified Code(s): D72.829 - Elevated white blood cell count, unspecified Hypotension Qualifiers: Hypotension type: unspecified hypotension type Qualified Code(s): I95.9 - Hypotension, unspecified Altered mental status Qualifiers: Altered mental status type: unspecified Qualified Code(s): R41.82 - Altered mental status, unspecified Condition: Stable Discharge Date/Time: 08/27/18 16:40
[2018-08-27 13:41] LABS: ALBUMIN 2.5 g/dL (3.2-5.5); ALBUMIN/GLOBULIN RATIO 0.5 (1.0-2.2); BILIRUBIN,TOTAL 1.3 mg/dL (0.2-1.0); CALCIUM 9.2 mg/dL (8.5-10.3); TOTAL PROTEIN 7.6 g/dL (6.7-8.2)
[2018-08-27 14:21] LABS: RBC MORPHOLOGY (MULTIPLE) 2+ ANISOCYTOSIS (NORMAL)
--- NOTE | 2018-08-27 14:22 | XRAY Report ---
Reason: L shoulder pain Procedure Date: 08/27/2018 Accession Number: [id number] / [id number] Procedure: XR - Shoulder 3 View LT CPT Code: FULL RESULT: EXAM: LEFT SHOULDER RADIOGRAPHY EXAM DATE: 08/27/2018 02:07 PM. CLINICAL HISTORY: L shoulder pain. COMPARISON: None. TECHNIQUE: 3 views. FINDINGS: Bones: Osteopenia. No definite fracture or other bone lesion. Joints: Moderate to marked degenerative changes. Anatomic alignment. Soft tissues: Clear visualized lung. IMPRESSION: Moderate to marked degenerative changes. RADIA
[2018-08-27] MEDS ORDERED: IOVERSOL 320 100 ML VIAL IVP ONE ×2 (14:42→16:46)
--- NOTE | 2018-08-27 15:20 | CT Report ---
Reason: abd pain, weakness. Procedure Date: 08/27/2018 Accession Number: [id number] / [id number] Procedure: CT - Abdomen/Pelvis W CPT Code: FULL RESULT: EXAM: CT ABDOMEN AND PELVIS EXAM DATE: 08/27/2018 03:04 PM. CLINICAL HISTORY: Abd pain, weakness. COMPARISONS: ABDOMEN/PELVIS W/WO 10/29/2013 11:49 AM. TECHNIQUE: Routine helical CT imaging was performed through the abdomen and pelvis. IV contrast: 100 cc Optiray 320 IV. Enteric contrast: No. Reconstructions: Coronal and sagittal. In accordance with CT protocol optimization, one or more of the following dose reduction techniques were utilized for this exam: automated exposure control, adjustment of mA and/or KV based on patient size, or use of iterative reconstructive technique. FINDINGS: Lung Bases: Unremarkable. Liver: No focal liver lesion or intrahepatic biliary dilatation. Gallbladder/Bile Ducts: Unremarkable. Spleen: Normal. Pancreas: Normal. Adrenal Glands: Normal. Kidneys: There are bilateral renal cortical cysts. No hydronephrosis or renal mass. Peritoneal Cavity/Bowel: The bowel is normal in caliber. No abnormal fluid or gas collection. No lymphadenopathy. The appendix is well visualized and normal. Pelvic Organs: The urinary bladder is empty and decompressed with a Womack catheter. There are coarse calcifications in the prostate. No abnormal pelvic fluid collection or mass. Vasculature: There is diffuse moderate atherosclerotic vascular calcification. Bones: There is chronic multilevel degenerative disk disease. Other: None. IMPRESSION: 1. No significant inflammatory process or definite acute finding to explain clinical symptoms of abdominal pain. RADIA
[2018-08-27] MEDS ORDERED: ONDANSETRON 4 MG/2 ML VIAL IVP PRN (15:50)
[2018-08-27] MEDS ORDERED: ONDANSETRON ODT 4 MG TABLET TL PRN (15:50)
[2018-08-27] MEDS ORDERED: SODIUM CHLORIDE FLUSH 0.9% 10 ML SYRINGE IVP PRN (15:50)
[2018-08-27] MEDS ORDERED: ACETAMINOPHEN 325 MG TABLET PO PRN (15:50)
[2018-08-27] MEDS ORDERED: oxyCODONE 5 MG TABLET PO PRN (15:50)
[2018-08-27] MEDS ORDERED: LACTATED RINGERS 2,381.37 ML IV STA (15:52)
[2018-08-27] MEDS ORDERED: VANCOMYCIN INJ 1.25 GM in SODIUM CHLORIDE 0.9% 250 ML IV STA (15:52)
[2018-08-27] MEDS ORDERED: PIPERACILLIN/TAZOBACTAM 4.5 GM in SODIUM CHLORIDE 0.9% MINIBAG 100 ML IV STA (15:53)
[2018-08-27] MEDS ORDERED: VANCOMYCIN INJ 2 GM in SODIUM CHLORIDE 0.9% 500 ML IV STA (15:53)
[2018-08-27] MEDS ORDERED: SODIUM CHLORIDE 0.9% 1,000 ML IV SCH (16:00)
[2018-08-27] MEDS: CEFEPIME 2 GM in SODIUM CHLORIDE 0.9% MINIBAG 100 ML IV SCH (17:32)
[2018-08-27] MEDS: metroNIDAZOLE 500 MG/100 ML 500 MG/100 ML BAG IV SCH (17:46)
[2018-08-27] MEDS: SODIUM CHLORIDE FLUSH 0.9% 10 ML SYRINGE IVP SCH (17:55)
[2018-08-27] MEDS ORDERED: SODIUM CHLORIDE 0.9% 500 ML IV ONE (20:57)
[2018-08-27] MEDS: SODIUM CHLORIDE 0.9% 500 ML IV PRN (21:20)
--- NOTE | 2018-08-27 22:55 | HISTORY & PHYSICAL EXAMINATION ---
DATE OF SERVICE: 08/27/2018 Physician: Venita Andujar MD ADMITTING PROVIDER: Venita Andujar MD PRIMARY CARE PROVIDER: Abran Burt MD POWER OF FUR BLOWER: Son, Carlin Piedra Jr., phone [phone]. CHIEF COMPLAINT: Unable to get out of bed for the last two days. HISTORY OF PRESENT ILLNESS: The patient is a 73-year-old man whose cardiovascular and cerebrovascular risk factors for arteriosclerosis include male sex, hypertension, hyperlipidemia, and a new diagnosis of diabetes in June of this year. He has had bypass surgery in 2000 with a BRANDT to the LAD and 3 saphenous vein grafts. He has also had a stroke in 2010 that left him with right body residual and cognitive deficits. His son said that he has actually been doing well considering his stroke. He definitely has some cognitive deficits, but he was able to drive a car, walk with a walker, take his own medications, doing his own meals up until probably April of this year. The son feels that dad took a sharp cognitive decline. No explanation. No falls. No new diagnosis of any diseases. He just was not doing well. His memory became acutely worse. His legs were starting to get weak. By May, he was having christina symptoms of prostatism with urinary retention, nocturia, decreased stream, and he was put on Flomax. In May, he was seen in the emergency room for this history and had a Womack, and antibiotics. By June, he was seen by his PCP and although the symptoms of prostatism were stable, his memory loss continued to decline. During his PCP visit in June 2018, he was diagnosed as new diabetes, but did not appear to be severe, and he was put on metformin. In an effort to evaluate the memory loss, he underwent an MRI, and he had lacunar infarcts, bilateral thalamic infarcts, putamen infarcts, and baugh radiata infarcts. All of them appeared old and nothing was acute. The suggestion was this is the same finding that he had in 2010 with his old strokes. Nothing to explain why he was acutely deteriorating. On 08/09/2018, he was seen in our emergency room with another episode of urinary retention. He could not pee and had another Womack and was placed on antibiotics in the form of Keflex. He returned on 08/13/2018 because he was weak, and there was purulent drainage around the meatus where the Womack catheter touched. It was felt to be fungal. He was continued on his Keflex. By then, he was needing help. The son felt like he could not take care of his dad anymore because of the sharp deterioration between April and July. As such, social work was notified, and the son is in the process of trying to contact people to help him take care of his dad at home. Dad has always said that he wanted to remain at home and never go to live at a longterm facility. He has been off antibiotics for three days. He has been refusing to eat for the last two or three days, especially yesterday. He sat in bed all day long yesterday. Refused to get up, and was sleeping. Today when he refused to get out of bed, the son decided to bring him in. There is no fever, chills, sweats. He is just getting weak, cannot get out of bed, seems foggier and foggier in his thought process. No food seems good to him and he just actively is avoiding eating or drinking for sure the last day, but it started two to three days ago. The son says that he has been able to get an appointment with neurology on 09/25/2018 up at [place], and he is going to keep that appointment. He was seen in the emergency room, where temperature was 36.1. Pulse was 118, blood pressure 118/81, respirations 14, 92% on room air. He is a very weak, elderly gentleman with diffuse weakness, no focal findings. Low hoarse voice. Clear lungs and a benign belly. He is mildly hyponatremic at 131, anion gap is high at 17. Glucose is 188, GFR 78, lactic acid 1.2. Newly elevated liver enzymes with a total bilirubin of 1.3, AST 66, ALT 66 and alkaline phosphatase of 147. Troponin is less than 0.04. You can see where he is developing malnutrition, and his albumin is 2.5. White cell count is elevated to 22.9 thousand with hemoglobin 12.1. Urinalysis with the Womack in place shows proteinuria, ketonuria, small amount of occult blood. Negative leukocyte esterase. No squamous epithelial cells. Rare bacteria. As such, culture is not going to be done. Chest x-ray is negative for acute cardiopulmonary abnormality. Shoulder x-ray because of complaints of left shoulder pain showed moderate to marked degenerative changes, but anatomic alignment is present. With the elevated liver enzymes, a CT of the abdomen and pelvis was done. Lung bases are unremarkable. No focal liver lesion or intrahepatic biliary dilatation. His gallbladder is unremarkable and the ducts are unremarkable. Spleen and pancreas are normal. Bilateral renal cortical cysts. In his peritoneal cavity, the bowel is good. Appendix is well visualized and normal. Coarse calcifications in the prostate. Moderate atherosclerotic vascular disease is seen. There is no clinical inflammatory process or acute findings to explain his elevated liver enzymes, fever. He is now placed in inpatient admission with an elevated white cell count, elevated liver enzymes, inability to walk, dehydration on physical exam with a dry mouth. PAST MEDICAL HISTORY 1. Histoplasmosis with left lung resection in the [place] in 1964. He had some shortness of breath in 2017, and a CT of the chest June 2017 was negative other than for the left lung resection. PFTs showed an FVC of 2.82 liters and FEV1 of 1.9 liters with an FEV1/FVC of 68%. 2. Gastroesophageal reflux disease. 3. Hypertension. 4. 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 5. History of coronary artery disease with bypass surgery in 2000 at [facility]. CT coronary angiogram done in followup in 2012 shows an intact BRANDT to the LAD and three saphenous vein grafts that are all patent. A Myoview stress test in 2014, done in followup, showed an ejection fraction of 71%, and an echo done March 2014 shows an ejection fraction of 55% with a hypokinetic LAD distribution area. He started having dyspnea on exertion March 2017. Echocardiogram showed anterolateral septal hypokinesis and his ejection fraction has dropped to 50% and he has moderate pulmonary regurgitation. A stress test done for that shortness of breath was negative for acute ischemia. 6. Benign prostatic hypertrophy with acute retention May 2018. Symptoms continue to this day. 7. Severe obstructive sleep apnea with an apnea-hypopnea index of 43. Seen in the sleep center in 2015, and he is on a CPAP mask. 8. Carpal tunnel syndrome with surgery. 9. Hyperlipidemia. 10. Chronic first-degree AV block on EKG. 11. Depression with insomnia and anxiety. MEDICATIONS 1. Tylenol 325 mg daily, can take up to 6 a day. 2. Norvasc 5 daily. 3. Baclofen 30 mg p.o. t.i.d. 4. Calcium carbonate with vitamin D 1200 mg daily. 5. Plavix 75 mg daily. 6. Docusate 480 mg b.i.d. 7. Aricept 5 mg daily. 8. Finasteride 5 mg daily. 9. Hydrochlorothiazide 25 mg daily. 10. Losartan 100 mg daily. 11. Metformin 500 mg daily. 12. Nitroglycerin sublingual p.r.n. 13. Fish oil tablets daily. 14. Zantac 300 b.i.d. 15. Zocor 40 mg daily. 16. Flomax 0.4 daily. 17. 0.9% sodium chloride triamcinolone cream for eczema. 18. Venlafaxine extended release 75 mg daily. SOCIAL HISTORY: He is retired from the [employer]. 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 He has been twice. He used to smoke two to three packs per day for 25 years and quit in 2000 with his bypass surgery. He has never had any problem with alcohol abuse. He was living by himself until two years ago, when his son started coming to live with him because he needed more and more help. Again, the sharp deterioration in status since April of this year to now. FAMILY HISTORY: Dad of complications of an OH, but also high blood pressure. Mom of metastatic lung cancer to the brain and also had kidney cancer. He has no siblings. He has two children. One son, one daughter. His daughter is from his first marriage, and he has never kept in contact with her. Does not even know where she lives. His son has been very stressed out taking care of his dad and let his weight get out of control, so now he is overweight, hyperlipidemic and hypertensive. Prediabetic. Previous level of function was that of an elderly gentleman who had a right- sided residual from a stroke, but still able to drive, use a walker, feed himself and dress himself until two months ago. Now he can barely get out of bed to even sit to stand. He is completely dependent on his son. REVIEW OF SYSTEMS Very difficult to obtain in this fatigued, elderly gentleman. Not all review of systems able to be obtained, as he would close his eyes and drift off to sleep and then wake up again. GENERAL: He denies fevers, chills, sweats. HEENT: He said it is getting harder to swallow, but not painful. Everything tastes bad. Mouth is very dry. PULMONARY: Shortness of breath, but no chest congestion, coughing, wheezing, definite decrease in cardiopulmonary endurance over the last two months that sharply declined. CARDIOVASCULAR: Denies edema, orthopnea, angina, or palpitations. GASTROINTESTINAL: Denies abdominal pain, change in bowel habits, blood in stool. No diarrhea. Severe anorexia over the last few weeks. JOINTS: Chronic low back pain, chronic joint stiffness, worse in the morning. Nothing new. Left shoulder hurts more than usual after a fall last week, but no effusions or redness to the joint. GENITOURINARY: With above prostatism. DERMATOLOGIC: No lesions. No rashes. No pruritus. PSYCHIATRIC: Very depressed. Giving up hope. Never wants to live in a longterm facility. ATMOSPHERIC TECHNICIAN: The stroke, the memory loss, diffuse weakness, suddenly worse over the last two to three months. No seizures. PHYSICAL EXAMINATION VITAL SIGNS: He was seen in his room after being transferred from the emergency room. His temperature is 36.1 and repeat is 36.5, pulse is 98-118, blood pressure 108/74, respirations 18, and he is 93% on room air. GENERAL: The gentleman is found lying quietly in his bed, staring off into space; unreactive to my presence, until I walked into his field of vision to introduce myself, and he does focus and look at me, but severe psychomotor slowing, low hoarse voice, and very, very dry lips. HEENT: The oral mucosa that is dry. Pupils are slowly reactive, but reactive. Sclerae nonicteric. Tongue midline, slow to move. Denies sore throat. Denies dysphagia or dysarthria, but he feels like he just does not want to swallow. NECK: Supple. No goiter or bruits. LUNGS: Clear to auscultation without crackles, rhonchi, or wheezing, and very slow, slow unlabored respiration with shallow breaths. HEART: PMI is normally placed with a regular rate and rhythm that is occasionally tachycardic. Systolic murmur at the apex. Not loud. ABDOMEN: Soft, hypoactive bowel sounds, nontender. No masses palpable. EXTREMITIES: Warm. No clubbing, cyanosis, or edema, and I have ordered ARLEEN hose. Passive range of motion on the left shoulder that hurts is doable. However, when I have him try to lift up his arm to abduct or abduct, he is unable to do it, but he says that right now he just feels so weak and the left shoulder is painful. NEUROLOGIC: He is oriented to person, place, but not date. Vague about what happened to bring him here. He can follow one-step commands, such as raise your arm, open your mouth, take a deep breath. He has right body weakness in comparison to the left body, but he is still able to move his arm, move his right leg. LABORATORY/DATA Sodium 131, potassium 3.6, anion gap 17, BUN 15, creatinine 1, GFR 73, glucose 188. Lactic acid 1.2, total bilirubin 1.3, AST 66, ALT 66, alkaline phosphatase 147. Troponin less than 0.04. White cell count is 22.9 thousand, hemoglobin 12.1, hematocrit 37. Platelets also elevated at 199. Urinalysis, chest x-ray, shoulder x-ray, abdomen and pelvis CT discussed as above. EKG has normal sinus rhythm with multiform PVCs, right axis deviation and a very slight RSR prime in V1, with very low voltage in V1. No acute ischemic ST changes. Prolonged QT interval of 501. ASSESSMENT/PLAN 1. Generalized weakness that is quite severe and progressive since April 2018. Accompanied by loss of appetite, low hoarse voice, stable residual deficits of previous stroke. Worsening cognitive deficits. MRI noncontributory in that it shows his old infarcts, but nothing new. At this time, infection is a cause of today's deterioration or rather this begins deterioration because he has an elevated white cell count. His white cell count on 08/13/2018 was 15, in May was 10. So this is an acute elevation. Plan: We will continue to investigate the cause of the patient's generalized weakness. It is good to know he has got a neurology appointment in the near future. Currently we will treat his acute weakness secondary to infection as seen in problem #2. Attestation that the patient will be evaluated for discharge within 96 hours. 2. Elevated white cell count, weakness, no fever, tachycardia. No obstructive picture seen on CT of the abdomen, so no cholecystitis. Negative abdominal exam. Urinalysis is noncontributory and negative without bacteria. CT of the abdomen is negative without any intraabdominal pathology. Blood cultures have been done. We will adjust antibiotics on the base of the culture. Hopefully, we can tailor down from the broad antibiotics I have ordered. I have ordered cefepime, Flagyl, and vancomycin until I can figure out where his infection is coming from. He does not meet sepsis criteria. 3. Abnormal liver function tests. CT of the abdomen did not show stones or biliary duct dilatation. Check hepatitis panel. You can get liver toxicity from his acetaminophen or simvastatin. We will check Tylenol level. Hold his statin while he is here. Check acute hepatitis panel. I do not think I am going to order an ultrasound of the liver because his CT of abdomen is negative. 4. Coronary artery disease history. Currently negative review of systems for chest pain, EKG is without acute ischemic changes and troponins are negative. 5. Benign prostatic hypertrophy history. Continue Proscar and Flomax. Continue Womack. 6. Obstructive sleep apnea. I spoke to the son, we will have to have him bring in his CPAP mask to the hospital. 7. Hypertension. Currently not a problem and is actually minimally hypotensive. We will hold off on his amlodipine and losartan. 8. New onset diabetes mellitus, type 2, without complications, not on long-term use of insulin. I explained to the son not to give his dad metformin when he is not eating or doing well. Metformin can cause lactic acidosis in that state. As such, he will be given IV fluids for hydration, sliding scale insulin for his glucose. I have written for a diabetic diet, but the patient states he just has no appetite. 9. Deep venous thrombosis prophylaxis will be ARLEEN [place]. 10. DO NOT RESUSCITATE status. He does have a POLST form that he signed with Dr. Burt. He is DO NOT RESUSCITATE, COMFORT MEASURES TO BE EMPHASIZED. DO NOT USE ANTIBIOTICS EXCEPT WHEN NEEDED FOR SYMPTOM MANAGEMENT. NO MEDICALLY- ASSISTED NUTRITION BY TUBE. In speaking to the son, dad would want to go home. He will explore with his father whether he will accept rehab at a longterm facility if it is short-term, but if his dad does not, he will take him home, and will hire private in-home care. BRANDIE: 08/27/2018 19:03 TD: 08/27/2018 19:16 RACHELLE
[2018-08-28] MEDS: CEFEPIME 2 GM in SODIUM CHLORIDE 0.9% MINIBAG 100 ML IV SCH ×3 (01:11→17:23)
[2018-08-28] MEDS: metroNIDAZOLE 500 MG/100 ML 500 MG/100 ML BAG IV SCH ×3 (01:22→17:23)
[2018-08-28] MEDS: SODIUM CHLORIDE FLUSH 0.9% 10 ML SYRINGE IVP SCH ×3 (01:33→18:50)
[2018-08-28 05:38] LABS: MUDS CUTOFF CONCENTRATIONS CUTOFF CONC BELOW:
[2018-08-28 05:55] LABS: AMPHETAMINE SCREEN,URINE NEGATIVE (NEGATIVE); BENZODIAZEPINES SCREEN, URINE NEGATIVE (NEGATIVE); COCAINE SCREEN URINE NEGATIVE (NEGATIVE); METHADONE SCREEN, URINE NEGATIVE (NEGATIVE); METHAMPHETAMINES SCREEN, URINE NEGATIVE (NEGATIVE); OPIATE SCREEN, URINE NEGATIVE (NEGATIVE); OXYCODONE SCREEN, URINE NEGATIVE (NEGATIVE); PROPOXYPHENE SCREEN, URINE NEGATIVE (NEGATIVE); TRICYCLIC ANTIDEPRESSANT,URINE NEGATIVE (NEGATIVE)
[2018-08-28] MEDS: VANCOMYCIN INJ 1.75 GM in SODIUM CHLORIDE 0.9% 500 ML IV SCH ×2 (05:58→18:59)
[2018-08-28 06:30] LABS: BASOPHILS # (AUTO) 0.1 10^3/uL (0.0-0.1); BASOPHILS % (AUTO) 0.4 %; EOSINOPHILS # (AUTO) 0.2 10^3/uL (0.0-0.7); HGB - HEMOGLOBIN 9.5 g/dL (14.0-18.0); LYMPHOCYTES # (AUTO) 1.7 10^3/uL (1.5-3.5); LYMPHOCYTES % (AUTO) 9.4 %; MEAN CORPUSCULAR HGB CONC 31.9 g/dL (32.0-36.0); MEAN CORPUSCULAR VOLUME 84.7 fL (80.0-94.0); MEAN PLATELET VOLUME 8.5 fL (7.4-11.4); MONOCYTES # (AUTO) 1.4 10^3/uL (0.0-1.0); MONOCYTES % (AUTO) 7.8 %; NEUTROPHILS # (AUTO) 14.7 10^3/uL (1.5-6.6); NEUTROPHILS % (AUTO) 80.6 %; PLT - PLATELET COUNT 472 10^3/uL (130-450); RED BLOOD COUNT 3.52 10^6/uL (4.70-6.10); RED CELL DISTRIBUTION WIDTH 13.8 % (12.0-15.0); WHITE BLOOD COUNT 18.2 x10^3/uL (4.8-10.8)
[2018-08-28 06:45] LABS: ALBUMIN 1.9 g/dL (3.2-5.5); ALBUMIN/GLOBULIN RATIO 0.5 (1.0-2.2); BILIRUBIN,TOTAL 0.7 mg/dL (0.2-1.0); CALCIUM 8.2 mg/dL (8.5-10.3); CREATININE 0.8 mg/dL (0.6-1.2)
[2018-08-28] MEDS: SENNA 8.6 MG TABLET PO SCH (10:22)
[2018-08-28] MEDS: DOCUSATE SODIUM 250 MG CAPSULE PO SCH (10:22)
[2018-08-28] MEDS: POLYETHYLENE GLYCOL 3350 17 GM PACKET PO SCH (10:22)
--- NOTE | 2018-08-28 16:06 | PROVIDER PROGRESS NOTE ---
Assessment/Plan - Problem List (1) Elevated WBC count Assessment/Plan: There is been improvement in white count after starting empiric IV antibiotics. No source was found: Chest x-ray negative, urine negative, no abdominal complaints. We will recheck the chest x-ray because of the pleuritic chest pain complaint. Continue empiric antibiotics until a source is found to focus treatment (2) General weakness Assessment/Plan: He was on a statin at home. This will be put on hold since it could have added to muscle weakness and his overall sensation of weakness. The blood pressure is only borderline, despite being off all his 3 blood pressure medications. If he was orthostatic, this may also have led to the weakness feeling. Physical therapy to evaluate starting tomorrow. (3) History of CVA with residual deficit Assessment/Plan: According to the record, the patient had memory problems and weakness on one side after a remote stroke. (4) Acute urinary retention Assessment/Plan: A Womack catheter was placed upon admission. (5) New onset type 2 diabetes mellitus Assessment/Plan: His metformin is currently on hold. We will order sliding scale insulin coverage and fingerstick glucose checks, and adjust him to a diabetic diet from regular diet (6) Anemia Assessment/Plan: This is likely from hemodilution. If there is no stabilization, will check B12, folate and iron panel peer (7) Hypokalemia Assessment/Plan: Likely related to poor p.o. intake. Replace potassium. Follow BMP daily (8) Lower urinary tract symptoms (LUTS) Assessment/Plan: Will resume his Finasteride and Flomax. (9) Hx of essential hypertension Assessment/Plan: His BP is in the 110 range without any of his usual blood pressure medications. The Amlodipine is on hold. (10) Depression Assessment/Plan: Will resume his antidepressant medications, watching for oversedation (11) RAFAT on CPAP Assessment/Plan: The home CPAP device was ordered to be used while here. (12) Hx of CABG Assessment/Plan: Patient has pain but he describes it only with a deep inspiration, the EKG had no acute changes and troponins were negative.. We will continue to hold the statin medicine as this may have added to his weakness (muscle weakness). (13) Elevated LFTs Assessment/Plan: Resolved with iv hydration - Current Meds Current Meds: Current Medications Generic Name Dose Route Start Last Admin Trade Name Freq PRN Reason Stop Dose Admin Docusate Sodium 250 - 500 mg 08/28/18 09:00 08/28/18 10:22 Colace 250mg Capsule PO 250 mg DAILY WES Administration Cefepime HCl 2 gm/ Sodium 100 mls @ 200 mls/hr 08/27/18 17:00 08/28/18 10:30 Chloride IV Infused Q8H WES Infusion Metronidazole 500 mg in 100 mls @ 100 mls/hr 08/27/18 17:00 08/28/18 12:28 Flagyl 500 Mg/100 Ml IV Infused Q8H WES Infusion Vancomycin HCl 1.75 gm/ Sodium 500 mls @ 250 mls/hr 08/28/18 06:00 08/28/18 10:08 Chloride IV Infused Q12H WES Infusion Sodium Chloride 500 mls @ 0 mls/hr 08/27/18 21:00 08/28/18 02:24 Normal Saline 0.9% IV 20 mls/hr Q24H PRN Infusion TKO RATE TKO Polyethylene Glycol 17 gm 08/28/18 09:00 08/28/18 10:22 Miralax PO 17 gm DAILY WES Administration Senna 8.6 - 17.2 mg 08/28/18 09:00 08/28/18 10:22 Senokot PO 8.6 mg DAILY WES Administration Sodium Chloride 10 ml 08/27/18 17:00 08/28/18 10:26 Normal Saline Flush 0.9% IVP 10 ml 0100,0900,1700 WES Administration - Lab Result Fish Bone Diagrams: 08/29/18 05:35 08/29/18 05:35 - Additional Planning My Orders: My Active Orders 08/29/18 Evaluate and Treat OT [OT] Routine Evaluate and Treat PT [PT] Routine Subjective - Subjective Patient Reports: Feeling Better, Resting Comfortably, Other (c/o pleuritic chest pain) Objective Vital Signs: Vital Signs - 24 hr 08/27/18 08/27/18 08/28/18 16:58 23:30 07:53 Temperature 36.5 C 36.2 C L 36.4 C L Heart Rate [ 102 H 90 95 Brachial] Respiratory 20 18 16 Rate Blood Pressure 118/59 L 117/59 L 120/60 [Right Brachial artery] O2 Saturation 96 93 97 Oxygen O2 Source Room air I&O (Last 24 Hrs): Intake and Output Totals x24h 08/26/18 08/27/18 08/28/18 23:59 23:59 23:59 Intake Total 4530.37 1121.333 Output Total 275 750 Balance 4255.37 371.333 General: Alert HEENT: Mucous membr. moist/pink Neck: Supple Neuro: Other (Weak on L) Cardiovascular: Regular rate, No murmurs Respiratory: No respiratory distress Extremities: No edema - Results Results: Laboratory Results WBC 18.2 x10^3/uL (4.8-10.8) H 08/28/18 05:42 RBC 3.52 10^6/uL (4.70-6.10) L 08/28/18 05:42 Hgb 9.5 g/dL (14.0-18.0) L 08/28/18 05:42 Hct 29.8 % (42.0-52.0) L 08/28/18 05:42 MCV 84.7 fL (80.0-94.0) 08/28/18 05:42 MCH 27.0 pg (27.0-31.0) 08/28/18 05:42 MCHC 31.9 g/dL (32.0-36.0) L 08/28/18 05:42 RDW 13.8 % (12.0-15.0) 08/28/18 05:42 Plt Count 472 10^3/uL (130-450) H 08/28/18 05:42 MPV 8.5 fL (7.4-11.4) 08/28/18 05:42 Neut # (Auto) 14.7 10^3/uL (1.5-6.6) H 08/28/18 05:42 Lymph # (Auto) 1.7 10^3/uL (1.5-3.5) 08/28/18 05:42 Coos # (Auto) 1.4 10^3/uL (0.0-1.0) H 08/28/18 05:42 Eos # (Auto) 0.2 10^3/uL (0.0-0.7) 08/28/18 05:42 Baso # (Auto) 0.1 10^3/uL (0.0-0.1) 08/28/18 05:42 Absolute Nucleated RBC 0.00 x10^3/uL 08/28/18 05:42 Nucleated RBC % 0.0 /100WBC 08/28/18 05:42 Manual Slide Review Indicated 08/27/18 13:07 RBC Morph Micro Appear 2+ ANISOCYTOSIS (NORMAL) 08/27/18 13:07 Sodium 136 mmol/L (135-145) 08/28/18 05:42 Potassium 3.4 mmol/L (3.5-5.0) L 08/28/18 05:42 Chloride 101 mmol/L (101-111) 08/28/18 05:42 Carbon Dioxide 24 mmol/L (21-32) 08/28/18 05:42 Anion Gap 11.0 (6-13) 08/28/18 05:42 BUN 14 mg/dL (6-20) 08/28/18 05:42 Creatinine 0.8 mg/dL (0.6-1.2) 08/28/18 05:42 Estimated GFR (MDRD) 94 (>89) 08/28/18 05:42 Glucose 107 mg/dL (70-100) H 08/28/18 05:42 Lactic Acid 1.2 mmol/L (0.5-2.2) 08/27/18 13:07 Calcium 8.2 mg/dL (8.5-10.3) L 08/28/18 05:42 Total Bilirubin 0.7 mg/dL (0.2-1.0) 08/28/18 05:42 AST 41 IU/L (10-42) 08/28/18 05:42 ALT 46 IU/L (10-60) 08/28/18 05:42 Alkaline Phosphatase 105 IU/L (42-121) 08/28/18 05:42 Troponin I < 0.04 ng/mL (<0.49) 08/27/18 13:07 Total Protein 6.0 g/dL (6.7-8.2) L 08/28/18 05:42 Albumin 1.9 g/dL (3.2-5.5) L 08/28/18 05:42 Globulin 4.1 g/dL (2.1-4.2) 08/28/18 05:42 Albumin/Globulin Ratio 0.5 (1.0-2.2) L 08/28/18 05:42 Lipase 40 U/L (22-51) 08/27/18 13:07 Urine Color YELLOW 08/27/18 13:00 Urine Clarity CLEAR (CLEAR) 08/27/18 13:00 Urine pH 5.5 PH (5.0-7.5) 08/27/18 13:00 Ur Specific [place] >=1.030 (1.002-1.030) H 08/27/18 13:00 Urine Protein 30 mg/dL (NEGATIVE) H 08/27/18 13:00 Urine Glucose (UA) NEGATIVE mg/dL (NEGATIVE) 08/27/18 13:00 Urine Ketones 15 mg/dL (NEGATIVE) H 08/27/18 13:00 Urine Occult Blood SMALL (NEGATIVE) H 08/27/18 13:00 Urine Nitrite NEGATIVE (NEGATIVE) 08/27/18 13:00 Urine Bilirubin NEGATIVE (NEGATIVE) 08/27/18 13:00 Urine Urobilinogen 1 (NORMAL) E.U./dL (NORMAL) 08/27/18 13:00 Ur Leukocyte Esterase NEGATIVE (NEGATIVE) 08/27/18 13:00 Urine RBC 0-5 /HPF (0-5) 08/27/18 13:00 Urine WBC 0-3 /HPF (0-3) 08/27/18 13:00 Ur Squamous Epith Cells NONE SEEN (<= Few) 08/27/18 13:00 Amorphous Sediment Few /LPF 08/27/18 13:00 Urine Bacteria Rare /HPF (None Seen) 08/27/18 13:00 Ur Microscopic Review INDICATED 08/27/18 13:00 Urine Culture Comments NOT INDICATED 08/27/18 13:00 Urine Opiates Screen NEGATIVE (NEGATIVE) 08/28/18 04:56 Ur Oxycodone Screen NEGATIVE (NEGATIVE) 08/28/18 04:56 Urine Methadone Screen NEGATIVE (NEGATIVE) 08/28/18 04:56 Ur Propoxyphene Screen NEGATIVE (NEGATIVE) 08/28/18 04:56 Acetaminophen < 10 ug/mL (10-30) L 08/27/18 20:30 Ur Barbiturates Screen NEGATIVE (NEGATIVE) 08/28/18 04:56 Ur Tricyclics Screen NEGATIVE (NEGATIVE) 08/28/18 04:56 Ur Phencyclidine Scrn NEGATIVE (NEGATIVE) 08/28/18 04:56 Ur Amphetamine Screen NEGATIVE (NEGATIVE) 08/28/18 04:56 U Methamphetamines Scrn NEGATIVE (NEGATIVE) 08/28/18 04:56 U Benzodiazepines Scrn NEGATIVE (NEGATIVE) 08/28/18 04:56 Urine Cocaine Screen NEGATIVE (NEGATIVE) 08/28/18 04:56 U Cannabinoids Screen NEGATIVE (NEGATIVE) 08/28/18 04:56
[2018-08-28] MEDS ORDERED: NITROGLYCERIN SL 0.4 MG TABLET SL PRN (18:22)
[2018-08-28] MEDS: DONEPEZIL 5 MG TABLET PO SCH (21:38)
[2018-08-28] MEDS: SODIUM CHLORIDE 0.9% 500 ML IV PRN (22:54)
[2018-08-29] MEDS: CEFEPIME 2 GM in SODIUM CHLORIDE 0.9% MINIBAG 100 ML IV SCH ×3 (00:28→16:15)
[2018-08-29] MEDS: metroNIDAZOLE 500 MG/100 ML 500 MG/100 ML BAG IV SCH ×3 (00:33→16:23)
[2018-08-29] MEDS: SODIUM CHLORIDE FLUSH 0.9% 10 ML SYRINGE IVP SCH ×4 (00:33→23:54)
[2018-08-29] MEDS: VANCOMYCIN INJ 1.75 GM in SODIUM CHLORIDE 0.9% 500 ML IV SCH ×2 (05:32→18:15)
[2018-08-29 05:53] LABS: BASOPHILS # (AUTO) 0.1 10^3/uL (0.0-0.1); BASOPHILS % (AUTO) 0.5 %; EOSINOPHILS # (AUTO) 0.2 10^3/uL (0.0-0.7); EOSINOPHILS % (AUTO) 1.2 %; LYMPHOCYTES # (AUTO) 1.7 10^3/uL (1.5-3.5); LYMPHOCYTES % (AUTO) 10.1 %; MEAN CORPUSCULAR HEMOGLOBIN 27.2 pg (27.0-31.0); MEAN CORPUSCULAR HGB CONC 31.9 g/dL (32.0-36.0); MEAN CORPUSCULAR VOLUME 85.3 fL (80.0-94.0); MEAN PLATELET VOLUME 8.4 fL (7.4-11.4); MONOCYTES % (AUTO) 6.1 %; NEUTROPHILS # (AUTO) 13.7 10^3/uL (1.5-6.6); NEUTROPHILS % (AUTO) 80.9 %; PLT - PLATELET COUNT 483 10^3/uL (130-450); RED BLOOD COUNT 3.67 10^6/uL (4.70-6.10); RED CELL DISTRIBUTION WIDTH 13.7 % (12.0-15.0)
[2018-08-29 05:59] LABS: ALBUMIN 1.9 g/dL (3.2-5.5); ALBUMIN/GLOBULIN RATIO 0.5 (1.0-2.2); BILIRUBIN,TOTAL 0.6 mg/dL (0.2-1.0); CALCIUM 8.3 mg/dL (8.5-10.3); CREATININE 0.8 mg/dL (0.6-1.2); TOTAL PROTEIN 6.1 g/dL (6.7-8.2)
[2018-08-29] MEDS ORDERED: POTASSIUM CHLOR 10 MEQ/100 ML 10 MEQ/100 ML BAG IV SCH (07:00)
[2018-08-29] MEDS ORDERED: POTASSIUM CHLORIDE INJ 40 MEQ in SODIUM CHLORIDE 0.9% 480 ML IV ONE (08:00)
[2018-08-29 09:34] LABS: % IRON SATURATION 17 % (20-50); IRON 19 ug/dL (45-182); TOTAL IRON BINDING CAPACITY 109 ug/dL (250-450); TRANSFERRIN 78 mg/dL (180-329)
[2018-08-29 09:43] LABS: FOLATE 5.44 ng/mL (5.90 - >24.8)
[2018-08-29] MEDS: POLYETHYLENE GLYCOL 3350 17 GM PACKET PO SCH (10:37)
[2018-08-29] MEDS: DOCUSATE SODIUM 250 MG CAPSULE PO SCH (10:38)
[2018-08-29] MEDS: SENNA 8.6 MG TABLET PO SCH (10:38)
[2018-08-29] MEDS: CLOPIDOGREL 75 MG TABLET PO SCH (10:38)
[2018-08-29] MEDS: CALCIUM CARB (OYSTER SHELL) 500 MG TABLET PO SCH (10:38)
[2018-08-29] MEDS: CHOLECALCIFEROL 400 UNIT TABLET PO SCH (10:38)
[2018-08-29] MEDS: FINASTERIDE 5 MG TABLET PO SCH (10:38)
[2018-08-29] MEDS: TAMSULOSIN 0.4 MG CAPSULE PO SCH (10:39)
[2018-08-29] MEDS: VENLAFAXINE ER 75 MG CAPSULE PO SCH (10:39)
--- NOTE | 2018-08-29 14:17 | PROVIDER PROGRESS NOTE ---
Assessment/Plan - Problem List (1) Elevated WBC count Assessment/Plan: White blood count is improving daily, the source of infection is still not established. Chest x-ray repeat from today pending. Blood cultures are negative to date Patient is on 2 empiric antibiotics and antifungal agent. (2) General weakness Assessment/Plan: This is probably multifactorial: From old stroke with weakness on one side, severe deconditioning due to being bedbound for over a month, malnutrition and probable dehydration from his infection. Patient to start having PT evaluation as well as OT evaluation today. I suspect he will not be able to be discharged home safely, would need [id number] caregivers. He will probably need a SNF for short-term rehab (3) History of CVA with residual deficit Assessment/Plan: As above (4) Severe protein-calorie malnutrition Assessment/Plan: Patient has a documented weight loss of greater than 22% in 3 months, noted after evaluation by our [facility]. I have added a protein supplement with meals. (5) Acute urinary retention Assessment/Plan: A Womack was placed in the ER because of urinary retention. As he has increasing strength and able to get out of bed, the Womack will be discontinued. (6) New onset type 2 diabetes mellitus Assessment/Plan: His diabetic control is good, continue on his current management with a carb- controlled diet and SS insulin (7) Anemia Qualifiers: Anemia type: iron deficiency Assessment/Plan: Will check stool for heme Will replace iron orally and folate (8) Hypokalemia Assessment/Plan: Replace. Follow BMP daily (9) Lower urinary tract symptoms (LUTS) Assessment/Plan: He is on his home meds of Flomax and finasteride (10) Hx of essential hypertension Assessment/Plan: BP remains controlled, despite no home blood pressure meds resumed. This suggests that he was hypotensive, probably adding to the weakness (12) RAFAT on CPAP Assessment/Plan: The home CPAP device was ordered to be used here (13) Hx of CABG Assessment/Plan: Stable - Current Meds Current Meds: Current Medications Generic Name Dose Route Start Last Admin Trade Name Freq PRN Reason Stop Dose Admin Calcium Carbonate/Glycine 1,000 mg 08/29/18 09:00 08/29/18 10:38 Oysco-500 PO 1,000 mg DAILY WES Administration Cholecalciferol 800 unit 08/29/18 09:00 08/29/18 10:38 Vitamin D3 PO 800 unit DAILY WES Administration Clopidogrel Bisulfate 75 mg 08/29/18 09:00 08/29/18 10:38 Plavix PO 75 mg DAILY WES Administration Docusate Sodium 250 - 500 mg 08/28/18 09:00 08/29/18 10:38 Colace 250mg Capsule PO 500 mg DAILY WES Administration Donepezil HCl 5 mg 08/28/18 21:00 08/28/18 21:38 Aricept PO 5 mg QPM WES Administration Finasteride 5 mg 08/29/18 09:00 08/29/18 10:38 Proscar PO 5 mg DAILY WES Administration Cefepime HCl 2 gm/ Sodium 100 mls @ 200 mls/hr 08/27/18 17:00 08/29/18 11:27 Chloride IV Infused Q8H WES Infusion Metronidazole 500 mg in 100 mls @ 100 mls/hr 08/27/18 17:00 08/29/18 12:58 Flagyl 500 Mg/100 Ml IV Infused Q8H WES Infusion Vancomycin HCl 1.75 gm/ Sodium 500 mls @ 250 mls/hr 08/28/18 06:00 08/29/18 07:49 Chloride IV Infused Q12H WES Infusion Sodium Chloride 500 mls @ 0 mls/hr 08/27/18 21:00 08/28/18 22:54 Normal Saline 0.9% IV 20 mls/hr Q24H PRN Administration TKO RATE TKO Polyethylene Glycol 17 gm 08/28/18 09:00 08/29/18 10:37 Miralax PO 17 gm DAILY WES Administration Senna 8.6 - 17.2 mg 08/28/18 09:00 08/29/18 10:38 Senokot PO 17.2 mg DAILY WES Administration Sodium Chloride 10 ml 08/27/18 17:00 08/29/18 10:39 Normal Saline Flush 0.9% IVP 10 ml 0100,0900,1700 WES Administration Tamsulosin HCl 0.4 mg 08/29/18 09:00 08/29/18 10:39 Flomax PO 0.4 mg DAILY WES Administration Venlafaxine HCl 75 mg 08/29/18 09:00 08/29/18 10:39 Effexor Er PO 75 mg DAILY WES Administration - Lab Result Fish Bone Diagrams: 08/29/18 05:35 08/29/18 05:35 - Additional Planning My Orders: My Active Orders 08/28/18 18:22 Nitroglycerin [Nitrostat] 0.4 mg SL PRN PRN 08/28/18 18:55 Home CPAP/BiPAP [RC] .ONCE 08/28/18 21:00 Donepezil [Aricept] 5 mg PO QPM 08/29/18 Evaluate and Treat OT [OT] Routine Evaluate and Treat PT [PT] Routine 08/29/18 09:00 Calcium Carb (Oyster Shell) [Oysco-500] 1,000 mg PO DAILY Cholecalciferol [Vitamin D3] 800 unit PO DAILY Clopidogrel [Plavix] 75 mg PO DAILY Finasteride [Proscar] 5 mg PO DAILY Tamsulosin [Flomax] 0.4 mg PO DAILY Venlafaxine ER [Effexor ER] 75 mg PO DAILY Subjective - Subjective Patient Reports: Feeling Better, Other (Feels tired, is sitting on a chair) Objective Vital Signs: Vital Signs - 24 hr 08/28/18 08/28/18 08/29/18 16:00 23:25 08:00 Temperature 36.7 C 37.1 C 36.3 C L Heart Rate [ 76 85 73 Brachial] Heart Rate [ Supine] Respiratory 18 18 22 Rate Respiratory Rate [With Activity] Respiratory Rate [Without Activity] Blood Pressure 118/70 135/71 H 116/68 [Right Brachial artery] Blood Pressure [Supine] O2 Saturation 93 93 97 O2 Saturation [ With Activity] O2 Saturation [ Without Activity] 08/29/18 08/29/18 10:59 11:05 Temperature Heart Rate [ Brachial] Heart Rate [ 78 78 Supine] Respiratory Rate Respiratory 18 18 Rate [With Activity] Respiratory 14 14 Rate [Without Activity] Blood Pressure [Right Brachial artery] Blood Pressure 124/68 124/68 [Supine] O2 Saturation O2 Saturation [ 82 L 82 L With Activity] O2 Saturation [ 96 96 Without Activity] Oxygen O2 Source [With Activity] Room air O2 Source [Without Activity] Room air O2 Source Room air I&O (Last 24 Hrs): Intake and Output Totals x24h 08/27/18 08/28/18 08/29/18 23:59 23:59 23:59 Intake Total 4530.37 2251.666 1590 Output Total 275 1150 425 Balance 4255.37 7455.316 2238 General: Alert HEENT: Mucous membr. moist/pink Neck: Supple, No JVD Neuro: Other (L side weak) Cardiovascular: Regular rate Respiratory: No respiratory distress Abdomen: Soft Extremities: No edema - Results Results: Laboratory Results WBC 17.0 x10^3/uL (4.8-10.8) H 08/29/18 05:35 RBC 3.67 10^6/uL (4.70-6.10) L 08/29/18 05:35 Hgb 10.0 g/dL (14.0-18.0) L 08/29/18 05:35 Hct 31.3 % (42.0-52.0) L 08/29/18 05:35 MCV 85.3 fL (80.0-94.0) 08/29/18 05:35 MCH 27.2 pg (27.0-31.0) 08/29/18 05:35 MCHC 31.9 g/dL (32.0-36.0) L 08/29/18 05:35 RDW 13.7 % (12.0-15.0) 08/29/18 05:35 Plt Count 483 10^3/uL (130-450) H 08/29/18 05:35 MPV 8.4 fL (7.4-11.4) 08/29/18 05:35 Neut # (Auto) 13.7 10^3/uL (1.5-6.6) H 08/29/18 05:35 Lymph # (Auto) 1.7 10^3/uL (1.5-3.5) 08/29/18 05:35 Lyman # (Auto) 1.0 10^3/uL (0.0-1.0) 08/29/18 05:35 Eos # (Auto) 0.2 10^3/uL (0.0-0.7) 08/29/18 05:35 Baso # (Auto) 0.1 10^3/uL (0.0-0.1) 08/29/18 05:35 Absolute Nucleated RBC 0.00 x10^3/uL 08/29/18 05:35 Nucleated RBC % 0.0 /100WBC 08/29/18 05:35 Manual Slide Review Indicated 08/27/18 13:07 RBC Morph Micro Appear 2+ ANISOCYTOSIS (NORMAL) 08/27/18 13:07 Sodium 139 mmol/L (135-145) 08/29/18 05:35 Potassium 3.3 mmol/L (3.5-5.0) L 08/29/18 05:35 Chloride 103 mmol/L (101-111) 08/29/18 05:35 Carbon Dioxide 25 mmol/L (21-32) 08/29/18 05:35 Anion Gap 11.0 (6-13) 08/29/18 05:35 BUN 13 mg/dL (6-20) 08/29/18 05:35 Creatinine 0.8 mg/dL (0.6-1.2) 08/29/18 05:35 Estimated GFR (MDRD) 94 (>89) 08/29/18 05:35 Glucose 102 mg/dL (70-100) H 08/29/18 05:35 Lactic Acid 1.2 mmol/L (0.5-2.2) 08/27/18 13:07 Calcium 8.3 mg/dL (8.5-10.3) L 08/29/18 05:35 Iron 19 ug/dL (45-182) L 08/29/18 08:54 TIBC 109 ug/dL (250-450) L 08/29/18 08:54 % Saturation 17 % (20-50) L 08/29/18 08:54 Transferrin 78 mg/dL (180-329) L 08/29/18 08:54 Total Bilirubin 0.6 mg/dL (0.2-1.0) 08/29/18 05:35 AST 37 IU/L (10-42) 08/29/18 05:35 ALT 41 IU/L (10-60) 08/29/18 05:35 Alkaline Phosphatase 94 IU/L (42-121) 08/29/18 05:35 Troponin I < 0.04 ng/mL (<0.49) 08/27/18 13:07 Total Protein 6.1 g/dL (6.7-8.2) L 08/29/18 05:35 Albumin 1.9 g/dL (3.2-5.5) L 08/29/18 05:35 Globulin 4.2 g/dL (2.1-4.2) 08/29/18 05:35 Albumin/Globulin Ratio 0.5 (1.0-2.2) L 08/29/18 05:35 Lipase 40 U/L (22-51) 08/27/18 13:07 Vitamin B12 359 pg/mL (180-914) 08/29/18 08:54 Folate 5.44 ng/mL (5.90 - >24.8) L 08/29/18 08:54 Urine Color YELLOW 08/27/18 13:00 Urine Clarity CLEAR (CLEAR) 08/27/18 13:00 Urine pH 5.5 PH (5.0-7.5) 08/27/18 13:00 Ur Specific Export >=1.030 (1.002-1.030) H 08/27/18 13:00 Urine Protein 30 mg/dL (NEGATIVE) H 08/27/18 13:00 Urine Glucose (UA) NEGATIVE mg/dL (NEGATIVE) 08/27/18 13:00 Urine Ketones 15 mg/dL (NEGATIVE) H 08/27/18 13:00 Urine Occult Blood SMALL (NEGATIVE) H 08/27/18 13:00 Urine Nitrite NEGATIVE (NEGATIVE) 08/27/18 13:00 Urine Bilirubin NEGATIVE (NEGATIVE) 08/27/18 13:00 Urine Urobilinogen 1 (NORMAL) E.U./dL (NORMAL) 08/27/18 13:00 Ur Leukocyte Esterase NEGATIVE (NEGATIVE) 08/27/18 13:00 Urine RBC 0-5 /HPF (0-5) 08/27/18 13:00 Urine WBC 0-3 /HPF (0-3) 08/27/18 13:00 Ur Squamous Epith Cells NONE SEEN (<= Few) 08/27/18 13:00 Amorphous Sediment Few /LPF 08/27/18 13:00 Urine Bacteria Rare /HPF (None Seen) 08/27/18 13:00 Ur Microscopic Review INDICATED 08/27/18 13:00 Urine Culture Comments NOT INDICATED 08/27/18 13:00 Urine Opiates Screen NEGATIVE (NEGATIVE) 08/28/18 04:56 Ur Oxycodone Screen NEGATIVE (NEGATIVE) 08/28/18 04:56 Urine Methadone Screen NEGATIVE (NEGATIVE) 08/28/18 04:56 Ur Propoxyphene Screen NEGATIVE (NEGATIVE) 08/28/18 04:56 Acetaminophen < 10 ug/mL (10-30) L 08/27/18 20:30 Ur Barbiturates Screen NEGATIVE (NEGATIVE) 08/28/18 04:56 Ur Tricyclics Screen NEGATIVE (NEGATIVE) 08/28/18 04:56 Ur Phencyclidine Scrn NEGATIVE (NEGATIVE) 08/28/18 04:56 Ur Amphetamine Screen NEGATIVE (NEGATIVE) 08/28/18 04:56 U Methamphetamines Scrn NEGATIVE (NEGATIVE) 08/28/18 04:56 U Benzodiazepines Scrn NEGATIVE (NEGATIVE) 08/28/18 04:56 Urine Cocaine Screen NEGATIVE (NEGATIVE) 08/28/18 04:56 U Cannabinoids Screen NEGATIVE (NEGATIVE) 08/28/18 04:56
--- NOTE | 2018-08-29 16:12 | XRAY Report ---
Reason: Pleuritic pain w/ elev WBC, re-eval for infiltrat Procedure Date: 08/29/2018 Accession Number: [id number] / [id number] Procedure: XR - Chest 1 View X-Ray CPT Code: 32525 FULL RESULT: EXAM: CHEST RADIOGRAPHY EXAM DATE: 08/29/2018 02:52 PM. CLINICAL HISTORY: Pleuritic pain w/ elev WBC, re-eval for infiltrat. COMPARISON: CHEST 1 VIEW 08/27/2018 1:02 PM. TECHNIQUE: 1 view. FINDINGS: Lungs/Pleura: The lungs appear unchanged. No developing or focal consolidation or pulmonary edema. Negative for pneumothorax. Mediastinum: Previous median sternotomy. Heart size within normal limits for technique. Trachea is midline. No significant change. Other: None. IMPRESSION: Negative for an acute cardiopulmonary abnormality. RADIA
[2018-08-29] MEDS: PRENATAL VITAMIN TABLET PO SCH (16:16)
[2018-08-29] MEDS: LACTOBACILLUS RHAMNOSUS GG CAPSULE PO SCH (16:16)
[2018-08-29] MEDS ORDERED: FERROUS GLUCONATE 324 MG TABLET PO SCH (19:00)
[2018-08-29] MEDS: DONEPEZIL 5 MG TABLET PO SCH (20:07)
[2018-08-30] MEDS: CEFEPIME 2 GM in SODIUM CHLORIDE 0.9% MINIBAG 100 ML IV SCH ×3 (00:58→16:40)
[2018-08-30] MEDS: SODIUM CHLORIDE 0.9% 500 ML IV PRN (00:59)
[2018-08-30] MEDS: metroNIDAZOLE 500 MG/100 ML 500 MG/100 ML BAG IV SCH ×3 (01:01→16:40)
[2018-08-30 05:45] LABS: BASOPHILS # (AUTO) 0.1 10^3/uL (0.0-0.1); BASOPHILS % (AUTO) 0.4 %; EOSINOPHILS # (AUTO) 0.4 10^3/uL (0.0-0.7); EOSINOPHILS % (AUTO) 2.4 %; LYMPHOCYTES # (AUTO) 1.7 10^3/uL (1.5-3.5); LYMPHOCYTES % (AUTO) 10.4 %; MEAN CORPUSCULAR HEMOGLOBIN 27.1 pg (27.0-31.0); MEAN CORPUSCULAR HGB CONC 31.8 g/dL (32.0-36.0); MEAN CORPUSCULAR VOLUME 85.1 fL (80.0-94.0); MEAN PLATELET VOLUME 8.2 fL (7.4-11.4); MONOCYTES % (AUTO) 5.8 %; NEUTROPHILS # (AUTO) 13.2 10^3/uL (1.5-6.6); NEUTROPHILS % (AUTO) 79.8 %; PLT - PLATELET COUNT 474 10^3/uL (130-450); RED BLOOD COUNT 3.69 10^6/uL (4.70-6.10); WHITE BLOOD COUNT 16.5 x10^3/uL (4.8-10.8)
[2018-08-30] MEDS: VANCOMYCIN INJ 1.75 GM in SODIUM CHLORIDE 0.9% 500 ML IV SCH (05:50)
[2018-08-30 06:06] LABS: ALBUMIN 1.9 g/dL (3.2-5.5); ALBUMIN/GLOBULIN RATIO 0.4 (1.0-2.2); BILIRUBIN,TOTAL 0.4 mg/dL (0.2-1.0); CALCIUM 8.4 mg/dL (8.5-10.3); CREATININE 0.8 mg/dL (0.6-1.2); TOTAL PROTEIN 6.2 g/dL (6.7-8.2)
[2018-08-30] MEDS: SODIUM CHLORIDE FLUSH 0.9% 10 ML SYRINGE IVP SCH ×2 (09:28→16:40)
[2018-08-30] MEDS: POLYETHYLENE GLYCOL 3350 17 GM PACKET PO SCH (09:28)
[2018-08-30] MEDS: TAMSULOSIN 0.4 MG CAPSULE PO SCH (09:29)
[2018-08-30] MEDS: CHOLECALCIFEROL 400 UNIT TABLET PO SCH (09:29)
[2018-08-30] MEDS: CLOPIDOGREL 75 MG TABLET PO SCH (09:29)
[2018-08-30] MEDS: PRENATAL VITAMIN TABLET PO SCH (09:29)
[2018-08-30] MEDS: POTASSIUM CHLORIDE 20 MEQ/15 ML UDC PO SCH (09:29)
[2018-08-30] MEDS: FINASTERIDE 5 MG TABLET PO SCH (09:29)
[2018-08-30] MEDS: DOCUSATE SODIUM 250 MG CAPSULE PO SCH (09:29)
[2018-08-30] MEDS: CALCIUM CARB (OYSTER SHELL) 500 MG TABLET PO SCH (09:29)
[2018-08-30] MEDS: VENLAFAXINE ER 75 MG CAPSULE PO SCH (09:29)
[2018-08-30] MEDS: LACTOBACILLUS RHAMNOSUS GG CAPSULE PO SCH (09:29)
[2018-08-30] MEDS: SENNA 8.6 MG TABLET PO SCH (09:30)
--- NOTE | 2018-08-30 16:30 | PROVIDER PROGRESS NOTE ---
Assessment/Plan - Problem List (1) Elevated WBC count Assessment/Plan: White blood count is improving daily, the source of infection is still not established. Chest x-ray x2 has been normal. Blood and urine cultures are negative to date. He has no otitis or sinusitis signs. Patient is on 2 empiric antibiotics and antifungal agent. Will transition to empiric po meds tomorrow. (2) General weakness Assessment/Plan: This is somewhat better, he is more alert, was able to sit in a chair. He cooperates with PT. He qualifies for PT rehab at a SNF which he and the son are agreeable to, before he returns home. (3) History of CVA with residual deficit Assessment/Plan: Patient has slight memory problems and weakness on one side, which is old. He is able to cooperate with PT, has poor gait and poor truncal control. (4) Severe protein-calorie malnutrition Assessment/Plan: This was documented by dietitian. His diet here has been very good. (5) Acute urinary retention Assessment/Plan: Will discontinue the Womack to determine if there is need for urology follow-up, he is on Flomax and Finasteride since pre-hospitalization. (6) New onset type 2 diabetes mellitus Assessment/Plan: Continue with a carb controlled diet and glucose management as scheduled. At discharge will return to his previous management (7) Anemia Qualifiers: Anemia type: iron deficiency Assessment/Plan: Iron and folate supplements have been started per (8) Hypokalemia Assessment/Plan: This is most likely from very poor p.o. intake for up to 2 months. Replace K Follow BMP daily while here peer (9) Lower urinary tract symptoms (LUTS) Assessment/Plan: He is already on finasteride and Flomax which will continue (10) Hx of essential hypertension Assessment/Plan: Control is adequate while here peer (11) Depression Assessment/Plan: He remains on his home medications for depression (12) RAFAT on CPAP Assessment/Plan: He is using his home CPAP device while here. (13) Hx of CABG Assessment/Plan: Stable cardiopulmonary status - Current Meds Current Meds: Current Medications Generic Name Dose Route Start Last Admin Trade Name Freq PRN Reason Stop Dose Admin Acetaminophen 650 mg 08/27/18 15:50 08/29/18 16:51 Tylenol PO 650 mg Q4HR PRN Administration Pain 1 to 4 Calcium Carbonate/Glycine 1,000 mg 08/29/18 09:00 08/30/18 09:29 Oysco-500 PO 1,000 mg DAILY WES Administration Cholecalciferol 800 unit 08/29/18 09:00 08/30/18 09:29 Vitamin D3 PO 800 unit DAILY WES Administration Clopidogrel Bisulfate 75 mg 08/29/18 09:00 08/30/18 09:29 Plavix PO 75 mg DAILY WES Administration Docusate Sodium 250 - 500 mg 08/28/18 09:00 08/30/18 09:29 Colace 250mg Capsule PO 250 mg DAILY WES Administration Donepezil HCl 5 mg 08/28/18 21:00 08/29/18 20:07 Aricept PO 5 mg QPM WES Administration Finasteride 5 mg 08/29/18 09:00 08/30/18 09:29 Proscar PO 5 mg DAILY WES Administration Cefepime HCl 2 gm/ Sodium 100 mls @ 200 mls/hr 08/27/18 17:00 08/30/18 09:58 Chloride IV Infused Q8H WES Infusion Metronidazole 500 mg in 100 mls @ 100 mls/hr 08/27/18 17:00 08/30/18 11:17 Flagyl 500 Mg/100 Ml IV Infused Q8H WES Infusion Sodium Chloride 500 mls @ 0 mls/hr 08/27/18 21:00 08/30/18 07:58 Normal Saline 0.9% IV 25 mls/hr Q24H PRN Infusion TKO RATE TKO Vancomycin HCl 1.75 gm/ Sodium 500 mls @ 250 mls/hr 08/30/18 06:00 08/30/18 07:58 Chloride IV Infused Q24H WES Infusion Lactobacillus Rhamnosus 1 cap 08/29/18 16:00 08/30/18 09:29 Culturelle PO 1 cap DAILY WES Administration Oxycodone HCl 5 mg 08/27/18 15:50 08/29/18 16:49 Roxicodone PO 5 mg Q4HR PRN Administration Pain 5 to 7 Polyethylene Glycol 17 gm 08/28/18 09:00 08/30/18 09:28 Miralax PO 17 gm DAILY WES Administration Potassium Chloride 20 meq 08/30/18 09:00 08/30/18 09:29 PO 20 meq DAILYWM WES Administration Multivit/Folic Acid/Iron 1 tab 08/29/18 16:00 08/30/18 09:29 Trinatal Rx 1 PO 1 tab DAILYWM WES Administration Senna 8.6 - 17.2 mg 08/28/18 09:00 08/30/18 09:30 Senokot PO Not Given DAILY WES Sodium Chloride 10 ml 08/27/18 17:00 08/30/18 09:28 Normal Saline Flush 0.9% IVP 10 ml 0100,0900,1700 WES Administration Tamsulosin HCl 0.4 mg 08/29/18 09:00 08/30/18 09:29 Flomax PO 0.4 mg DAILY WES Administration Venlafaxine HCl 75 mg 08/29/18 09:00 08/30/18 09:29 Effexor Er PO 75 mg DAILY WES Administration - Lab Result Fish Bone Diagrams: 08/30/18 05:20 08/30/18 05:20 - Additional Planning My Orders: My Active Orders 08/30/18 09:00 Potassium Chloride Oral Soln 20 meq PO DAILYWM 08/30/18 10:23 Echo Transthoracic Complete [ECHO] Routine 08/30/18 18:11 Folic Acid 1 mg PO DAILY 08/31/18 05:00 BMP - BASIC METABOLIC PANEL [CHEM] DAILYLAB CBC - COMP BLD CT W/AUTO DIFF [HEME] DAILYLAB 09/01/18 05:00 BMP - BASIC METABOLIC PANEL [CHEM] DAILYLAB CBC - COMP BLD CT W/AUTO DIFF [HEME] DAILYLAB Subjective - Subjective Patient Reports: Resting Comfortably Nursing Reports: No Complaints Objective Vital Signs: Vital Signs - 24 hr 08/29/18 08/30/18 08/30/18 23:44 09:00 15:51 Temperature 36.3 C L 36.7 C 36.6 C Heart Rate [ 75 101 H 99 Brachial] Respiratory 16 18 20 Rate Blood Pressure 147/90 H 128/78 139/86 H [Right Brachial artery] O2 Saturation 96 93 97 Oxygen O2 Source [With Activity] Room air O2 Source [Without Activity] Room air O2 Source Room air I&O (Last 24 Hrs): Intake and Output Totals x24h 08/28/18 08/29/18 08/30/18 23:59 23:59 23:59 Intake Total 2251.666 2860 2497 Output Total 1150 1200 1475 Balance 8642.398 0449 1022 General: Alert HEENT: Mucous membr. moist/pink Neck: Supple Neuro: Other (weak on one side) Cardiovascular: Regular rate Respiratory: No respiratory distress, Breath sounds nml Abdomen: Soft Extremities: No edema - Results Results: Laboratory Results WBC 16.5 x10^3/uL (4.8-10.8) H 08/30/18 05:20 RBC 3.69 10^6/uL (4.70-6.10) L 08/30/18 05:20 Hgb 10.0 g/dL (14.0-18.0) L 08/30/18 05:20 Hct 31.4 % (42.0-52.0) L 08/30/18 05:20 MCV 85.1 fL (80.0-94.0) 08/30/18 05:20 MCH 27.1 pg (27.0-31.0) 08/30/18 05:20 MCHC 31.8 g/dL (32.0-36.0) L 08/30/18 05:20 RDW 14.0 % (12.0-15.0) 08/30/18 05:20 Plt Count 474 10^3/uL (130-450) H 08/30/18 05:20 MPV 8.2 fL (7.4-11.4) 08/30/18 05:20 Neut # (Auto) 13.2 10^3/uL (1.5-6.6) H 08/30/18 05:20 Lymph # (Auto) 1.7 10^3/uL (1.5-3.5) 08/30/18 05:20 Dukes # (Auto) 1.0 10^3/uL (0.0-1.0) 08/30/18 05:20 Eos # (Auto) 0.4 10^3/uL (0.0-0.7) 08/30/18 05:20 Baso # (Auto) 0.1 10^3/uL (0.0-0.1) 08/30/18 05:20 Absolute Nucleated RBC 0.00 x10^3/uL 08/30/18 05:20 Nucleated RBC % 0.0 /100WBC 08/30/18 05:20 Manual Slide Review Indicated 08/27/18 13:07 RBC Morph Micro Appear 2+ ANISOCYTOSIS (NORMAL) 08/27/18 13:07 Sodium 139 mmol/L (135-145) 08/30/18 05:20 Potassium 3.3 mmol/L (3.5-5.0) L 08/30/18 05:20 Chloride 103 mmol/L (101-111) 08/30/18 05:20 Carbon Dioxide 25 mmol/L (21-32) 08/30/18 05:20 Anion Gap 11.0 (6-13) 08/30/18 05:20 BUN 13 mg/dL (6-20) 08/30/18 05:20 Creatinine 0.8 mg/dL (0.6-1.2) 08/30/18 05:20 Estimated GFR (MDRD) 94 (>89) 08/30/18 05:20 Glucose 116 mg/dL (70-100) H 08/30/18 05:20 Lactic Acid 1.2 mmol/L (0.5-2.2) 08/27/18 13:07 Calcium 8.4 mg/dL (8.5-10.3) L 08/30/18 05:20 Iron 19 ug/dL (45-182) L 08/29/18 08:54 TIBC 109 ug/dL (250-450) L 08/29/18 08:54 % Saturation 17 % (20-50) L 08/29/18 08:54 Transferrin 78 mg/dL (180-329) L 08/29/18 08:54 Total Bilirubin 0.4 mg/dL (0.2-1.0) 08/30/18 05:20 AST 27 IU/L (10-42) 08/30/18 05:20 ALT 32 IU/L (10-60) 08/30/18 05:20 Alkaline Phosphatase 85 IU/L (42-121) 08/30/18 05:20 Troponin I < 0.04 ng/mL (<0.49) 08/27/18 13:07 Total Protein 6.2 g/dL (6.7-8.2) L 08/30/18 05:20 Albumin 1.9 g/dL (3.2-5.5) L 08/30/18 05:20 Globulin 4.3 g/dL (2.1-4.2) H 08/30/18 05:20 Albumin/Globulin Ratio 0.4 (1.0-2.2) L 08/30/18 05:20 Lipase 40 U/L (22-51) 08/27/18 13:07 Vitamin B12 359 pg/mL (180-914) 08/29/18 08:54 Folate 5.44 ng/mL (5.90 - >24.8) L 08/29/18 08:54 Urine Color YELLOW 08/27/18 13:00 Urine Clarity CLEAR (CLEAR) 08/27/18 13:00 Urine pH 5.5 PH (5.0-7.5) 08/27/18 13:00 Ur Specific [place] >=1.030 (1.002-1.030) H 08/27/18 13:00 Urine Protein 30 mg/dL (NEGATIVE) H 08/27/18 13:00 Urine Glucose (UA) NEGATIVE mg/dL (NEGATIVE) 08/27/18 13:00 Urine Ketones 15 mg/dL (NEGATIVE) H 08/27/18 13:00 Urine Occult Blood SMALL (NEGATIVE) H 08/27/18 13:00 Urine Nitrite NEGATIVE (NEGATIVE) 08/27/18 13:00 Urine Bilirubin NEGATIVE (NEGATIVE) 08/27/18 13:00 Urine Urobilinogen 1 (NORMAL) E.U./dL (NORMAL) 08/27/18 13:00 Ur Leukocyte Esterase NEGATIVE (NEGATIVE) 08/27/18 13:00 Urine RBC 0-5 /HPF (0-5) 08/27/18 13:00 Urine WBC 0-3 /HPF (0-3) 08/27/18 13:00 Ur Squamous Epith Cells NONE SEEN (<= Few) 08/27/18 13:00 Amorphous Sediment Few /LPF 08/27/18 13:00 Urine Bacteria Rare /HPF (None Seen) 08/27/18 13:00 Ur Microscopic Review INDICATED 08/27/18 13:00 Urine Culture Comments NOT INDICATED 08/27/18 13:00 Last Dose Date 08/29/18 08/29/18 17:33 Last Dose Time 0739 08/29/18 17:33 Vancomycin Trough 27.0 ug/mL (10.0-20.0) H* 08/29/18 17:33 Urine Opiates Screen NEGATIVE (NEGATIVE) 08/28/18 04:56 Ur Oxycodone Screen NEGATIVE (NEGATIVE) 08/28/18 04:56 Urine Methadone Screen NEGATIVE (NEGATIVE) 08/28/18 04:56 Ur Propoxyphene Screen NEGATIVE (NEGATIVE) 08/28/18 04:56 Acetaminophen < 10 ug/mL (10-30) L 08/27/18 20:30 Ur Barbiturates Screen NEGATIVE (NEGATIVE) 08/28/18 04:56 Ur Tricyclics Screen NEGATIVE (NEGATIVE) 08/28/18 04:56 Ur Phencyclidine Scrn NEGATIVE (NEGATIVE) 08/28/18 04:56 Ur Amphetamine Screen NEGATIVE (NEGATIVE) 08/28/18 04:56 U Methamphetamines Scrn NEGATIVE (NEGATIVE) 08/28/18 04:56 U Benzodiazepines Scrn NEGATIVE (NEGATIVE) 08/28/18 04:56 Urine Cocaine Screen NEGATIVE (NEGATIVE) 08/28/18 04:56 U Cannabinoids Screen NEGATIVE (NEGATIVE) 08/28/18 04:56
[2018-08-30] MEDS: FOLIC ACID 1 MG TABLET PO SCH (17:19)
[2018-08-30] MEDS: DONEPEZIL 5 MG TABLET PO SCH (20:16)
[2018-08-31] MEDS: SODIUM CHLORIDE 0.9% 500 ML IV PRN (00:59)
[2018-08-31] MEDS: SODIUM CHLORIDE FLUSH 0.9% 10 ML SYRINGE IVP SCH ×2 (01:00→10:04)
[2018-08-31] MEDS: metroNIDAZOLE 500 MG/100 ML 500 MG/100 ML BAG IV SCH ×2 (01:00→08:12)
[2018-08-31] MEDS: CEFEPIME 2 GM in SODIUM CHLORIDE 0.9% MINIBAG 100 ML IV SCH (01:00)
[2018-08-31 05:52] LABS: BASOPHILS # (AUTO) 0.1 10^3/uL (0.0-0.1); BASOPHILS % (AUTO) 0.5 %; EOSINOPHILS # (AUTO) 0.4 10^3/uL (0.0-0.7); EOSINOPHILS % (AUTO) 2.7 %; HGB - HEMOGLOBIN 9.3 g/dL (14.0-18.0); LYMPHOCYTES # (AUTO) 2.1 10^3/uL (1.5-3.5); LYMPHOCYTES % (AUTO) 13.5 %; MEAN CORPUSCULAR HEMOGLOBIN 27.9 pg (27.0-31.0); MEAN CORPUSCULAR HGB CONC 32.7 g/dL (32.0-36.0); MEAN CORPUSCULAR VOLUME 85.3 fL (80.0-94.0); MEAN PLATELET VOLUME 8.3 fL (7.4-11.4); MONOCYTES # (AUTO) 1.1 10^3/uL (0.0-1.0); MONOCYTES % (AUTO) 6.9 %; NEUTROPHILS # (AUTO) 11.8 10^3/uL (1.5-6.6); NEUTROPHILS % (AUTO) 75.4 %; PLT - PLATELET COUNT 438 10^3/uL (130-450); RED BLOOD COUNT 3.33 10^6/uL (4.70-6.10); RED CELL DISTRIBUTION WIDTH 13.6 % (12.0-15.0); WHITE BLOOD COUNT 15.6 x10^3/uL (4.8-10.8)
[2018-08-31] MEDS: VANCOMYCIN INJ 1.75 GM in SODIUM CHLORIDE 0.9% 500 ML IV SCH (05:55)
[2018-08-31 06:06] LABS: CALCIUM 7.9 mg/dL (8.5-10.3); CREATININE 0.8 mg/dL (0.6-1.2)
[2018-08-31] MEDS ORDERED: POTASSIUM CHLORIDE 10 MEQ CAPSULE PO SCH (08:00)
[2018-08-31] MEDS: SENNA 8.6 MG TABLET PO SCH (08:11)
[2018-08-31] MEDS: FOLIC ACID 1 MG TABLET PO SCH (08:11)
[2018-08-31] MEDS: CLOPIDOGREL 75 MG TABLET PO SCH (08:11)
[2018-08-31] MEDS: PRENATAL VITAMIN TABLET PO SCH (08:11)
[2018-08-31] MEDS: CHOLECALCIFEROL 400 UNIT TABLET PO SCH (08:11)
[2018-08-31] MEDS: FINASTERIDE 5 MG TABLET PO SCH (08:11)
[2018-08-31] MEDS: CALCIUM CARB (OYSTER SHELL) 500 MG TABLET PO SCH (08:11)
[2018-08-31] MEDS: VENLAFAXINE ER 75 MG CAPSULE PO SCH (08:11)
[2018-08-31] MEDS: POTASSIUM CHLORIDE 20 MEQ/15 ML UDC PO SCH (08:11)
[2018-08-31] MEDS: DOCUSATE SODIUM 250 MG CAPSULE PO SCH (08:11)
[2018-08-31] MEDS: LACTOBACILLUS RHAMNOSUS GG CAPSULE PO SCH (08:11)
[2018-08-31] MEDS: TAMSULOSIN 0.4 MG CAPSULE PO SCH (08:12)
[2018-08-31 08:25] VITALS: BP 132/69
[2018-08-31] MEDS ORDERED: SULFAMETH/TRIMETH DS 800/160 MG TABLET PO SCH (10:00)
[2018-08-31] MEDS: POLYETHYLENE GLYCOL 3350 17 GM PACKET PO SCH (10:04)
--- NOTE | 2018-08-31 10:25 | Discharge Plan ---
"Discharge Plan for SNF / [facility] - Discharge Plan And Transition Orders Problem Reviewed?: Yes Disposition: 03 SNF DC/Xfer Condition: Stable Allergies and Adverse Reactions: Allergies Allergy/AdvReac Type Severity Reaction Status Date / Time Horse/Equine Containing Allergy Unknown Unknown Verified 08/29/18 07:08 Products lisinopril Allergy Unknown Verified 08/27/18 12:39 Health Concerns: Patient had an old stroke with Left sided weakness, was getting progressively weaker over the prior 2 months to the point of being bedbound. He improved with treatment of infection, with hydration and with initiation of physical therapy. Plan of Treatment: Plan is to finish treatment of the infection, improve nutrition needed due to protein calorie-malnutrition and increase activity with PT and OT rehab to maximize functional capacity. Care Goals: Increase strength to return home. Assessment: Patient is motivated and understands the plan - SNF / ASSISTED Transition Orders Admit to (Facility): [facility] Discharge Diagnosis: (1) Elevated WBC count, improving on empiric antibiotics (2) Generalized weakness (3) History of CVA with residual Left-sided deficit (4) Severe protein-calorie malnutrition (5) Acute urinary retention (6) Lower urinary tract symptoms (LUTS) with BPH (7) Recent onset type 2 diabetes mellitus (8) Anemia, Iron deficiency and Folate deficiency (9) Hypokalemia (10) Hx of Hypertension (11) Depression (12) Sleep apnea on CPAP (13) Hx of CABG (14) Code status: Do Not Resuscitate Medicare Certification Statement: I certify that Post Hospital usp care is medically necessary on a continuing basis for any of the conditions for which she/he is receiving care during hospitalization. Notify PCP of admission and forward orders to primary provider for signature. Weight on admission and: Weekly Call PCP immediately if weight increases by: 5 kg Other Notification Orders: Call PCP immediately if patient develops dyspnea, chest pain/tightness or edema. House Bowel Program: Yes Additional Bowel Program Orders: If no BM after 2 days, nurse may give M.O.M. 30ml PO PRN and/or ducolax Supp 1 NH and/or MYRA 250mg P.O., and/or senna 1-2 tabs PO. On day 3 nurse may give repeat above order until residents constipation is resolved. Annual Influenza Vaccine (between Oct 28 and May 27): Yes Two-step PPD per [facility] [phone] or approved exception documents: Yes Treatments & Other Orders: Daily PT and OT Oxygen Orders: None Medication Orders: PLEASE REFER TO THE DISCHARGE MEDICATION LIST. Insulin Orders?: No - Medications New Prescriptions: Folic Acid 1 mg PO DAILY #30 tablet Lactobacillus Rhamnosus GG [Culturelle] 1 cap PO DAILY #6 capsule Vitamin [Trinatal Rx 1] 1 tab PO DAILYWM #30 tablet Sulfamethox/Trimeth 800/160 [Bactrim Ds] 1 tab PO BID #13 tablet - Diet Type: Diabetic diet Texture: Regular Liquids: Thin May have monthly special meal: Yes - Therapies | Activity Therapy: Evaluation | Treat if indicated: PT, OT Rehabilitation Potential: Maximize functional status Activity: Activity as Tolerated Weight Bearing: Full Weight Assistance Devices: Walker Follow Up: Follow-up with PCP, Dr Burt [facility]"
[2018-08-31] MEDS ORDERED: LOPERAMIDE 2 MG CAPSULE PO PRN (11:51)
--- NOTE | 2018-09-06 11:51 | DISCHARGE SUMMARY ---
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 There had been 2 ER visits for urinary retention in May and July of this year, managed with a Womack and oral antibiotics. He was now getting progressively weaker, with worsening memory, and loss of appetite over the prior 2 months to the point of being bedbound and had no oral intake for 2 days and was brought to the ER. Work-up showed an elevated WBC of 22K, tachycardiac at 110, BP 102, and he was admitted. - CONSULTS | PROCEDURES Consultations: None - HOSPITAL COURSE Hospital Course: (1) Elevated WBC count, improving on empiric antibiotics Chest x-ray and abdomen/pelvis CT scan were unremarkable, the urine was n egative, there was no cough or sputum and blood cultures remained negative. He was started on empiric iv Cefepime, Vancomycin and Flagyl at admission. There was daily improvement in white count on these empiric IV antibiotics. He was transitioned to oral TMP/Sulfa, 1 tab po bid for 7 more days, for the presumptive source being his urine (due to his past history), and was discharged with this. (2) Generalized weakness He was empirically treated for an infection, iv hydrated, electrolytes replaced and started to have more energy. He was on a statin at home which was put on hold since it could have added to muscle weakness. The blood pressure ran borderline low, despite being off all his 3 blood pressure medications, and these were on hold while here. He did not undergo repeat brain imaging, as it was recently done as an outpatient with a brain MRI that showed multiple old strokes but no new findings. He started to get OOB for meals and then was able to participate with Physical Therapy.. (3) History of CVA with residual right-sided deficit He was evaluated by PT here and was able to start rehab. He was motivated to improve and was discharged to [facility] for PT and OT rehab. (4) Severe protein-calorie malnutrition He was seen by the Manager Of Distribution. His appetite improved as he regained some strengt h. (5) Acute urinary retention He required a Womack for management, which was discontinued before discharge. He should have Urology management for his BPH and recurrent episodes of obstruction and possible UTI's. (6) Lower urinary tract symptoms (LUTS) with BPH He was kept on his Finasteride. (7) Recent onset type 2 diabetes mellitus He was on a carb-controlled diet and sliding scale Insulin coverage. He was discharged on oral medications only. (8) Anemia, Iron deficiency and Folate deficiency The Hgb dropped from 12 to 9.5, partially from hemodilution. Labs were done that showed both Folate and Iron deficiencies and he was started on oral replacement therapy for both deficiencies and discharged with these meds. (9) Hypokalemia He had recurrent low serum Potassium and required iv and po replacement. (10) Hx of Hypertension His meds were resumed as BP yvette. (11) Depression He was kept on his anti-depressant meds while here. (12) Sleep apnea on CPAP He used his home CPAP device while here and discharged to SNF with this. (13) Hx of CABG There were no concerns regarding cardiopulmonary symptoms while here. He was kept on daily Plavix and [place]-3 tablets, but the statin was stopped (see above). - ALLERGIES Allergies/Adverse Reactions: Allergies Allergy/AdvReac Type Severity Reaction Status Date / Time Horse/Equine Containing Allergy Unknown Unknown Verified 08/29/18 07:08 Products lisinopril Allergy Unknown Verified 08/27/18 12:39 - MEDICATIONS Home Medications: Ambulatory Orders Medication Instructions Recorded Confirmed Baclofen 10 mg PO TID 08/27/18 08/28/18 Calcium Carbonate/Vitamin D3 1,200 mg PO DAILY 08/27/18 08/27/18 [Calcium 250-D Tablet] Clopidogrel [Plavix] 75 mg PO DAILY 08/27/18 08/28/18 Docusate Calcium 240 mg PO BID 08/27/18 08/28/18 Donepezil [Aricept] 5 mg PO DAILY PM 08/27/18 08/28/18 Finasteride 5 mg PO DAILY 08/27/18 08/28/18 Hydrochlorothiazide 25 mg PO DAILY 08/27/18 08/27/18 Losartan Potassium 100 mg PO DAILY 08/27/18 08/27/18 Metoprolol Tartrate 50 mg PO BID 08/27/18 08/27/18 Nitroglycerin 0.4 mg SL PRN PRN 08/27/18 08/27/18 [place]-3/Dha/Epa/Fish Oil [Fish Oil 1 tab PO DAILY 08/27/18 08/27/18 [place]-3 EC 1,200 mg] Simvastatin [Zocor] 40 mg PO DAILY 08/27/18 08/27/18 Tamsulosin [Flomax] 0.4 mg PO DAILY 08/27/18 08/27/18 Venlafaxine ER [Effexor ER] 75 mg PO DAILY 08/27/18 08/27/18 amLODIPine [Norvasc] 5 mg PO DAILY 08/27/18 08/28/18 raNITIdine [Zantac] 150 mg PO BID 08/27/18 08/28/18 Metformin HCl [Metformin HCl ER] 500 mg PO DAILY 08/28/18 08/28/18 Folic Acid 1 mg PO DAILY #30 tablet 08/31/18 Lactobacillus Rhamnosus GG 1 cap PO DAILY #6 capsule 08/31/18 [Culturelle] Vitamin [Trinatal Rx 1] 1 tab PO DAILYWM #30 tablet 08/31/18 Sulfamethox/Trimeth 800/160 1 tab PO BID #13 tablet 08/31/18 [Bactrim Ds] - PHYSICAL EXAM AT DISCHARGE General Appearance: positive: No acute distress, Alert Eyes Bilateral: positive: Normal inspection ENT: positive: ENT inspection nml Neck: positive: No JVD Respiratory: positive: No respiratory distress Cardiovascular: positive: Regular rate & rhythm, No murmur Abdomen: positive: Non-tender, Nml bowel sounds Extremities: positive: No pedal edema Neurologic/Psychiatric: positive: Other (Weak on right side) - LABS Result Diagrams: 08/31/18 05:29 08/31/18 05:29 - DIAGNOSTIC IMAGING Diagnostic Imaging Results: Final report reviewed - FOLLOW UP Follow Up: See PCP, Dr Burt after discharge from SNF at [facility]. - TIME SPENT Time Spent in Discharge (Minutes): 60"
== END 2018-08-31 12:30 | DRG 689 ==
LOC: EDUNIT# → ED 12:32 → MS2 15:50
PROVIDERS: ADMIT Specialist; ATTEND Internal Medicine
DX: D72.829 Elevated white blood cell count, unspecified (principal); N39.0 Urinary tract infection, site not specified; R41.82 Altered mental status, unspecified; R79.89 Other specified abnormal findings of blood chemistry; E43 Unspecified severe protein-calorie malnutrition; R53.1 Weakness; R11.0 Nausea; R33.9 Retention of urine, unspecified; I69.351 Hemiplegia and hemiparesis following cerebral infarction affecting right dominant side; I25.2 Old myocardial infarction; Z87.440 Personal history of urinary (tract) infections; E87.1 Hypo-osmolality and hyponatremia; I95.9 Hypotension, unspecified; R07.1 Chest pain on breathing; Z96.0 Presence of urogenital implants; Z86.73 Personal history of transient ischemic attack (TIA), and cerebral infarction without residual deficits; R31.29 Other microscopic hematuria; E86.0 Dehydration; I10 Essential (primary) hypertension; E78.5 Hyperlipidemia, unspecified; E11.9 Type 2 diabetes mellitus without complications; I37.1 Nonrheumatic pulmonary valve insufficiency; R13.10 Dysphagia, unspecified; R49.0 Dysphonia; I25.10 Atherosclerotic heart disease of native coronary artery without angina pectoris; N40.1 Benign prostatic hyperplasia with lower urinary tract symptoms; R33.8 Other retention of urine; R35.1 Nocturia; R39.12 Poor urinary stream; M19.012 Primary osteoarthritis, left shoulder; D50.9 Iron deficiency anemia, unspecified; D52.9 Folate deficiency anemia, unspecified; E87.6 Hypokalemia; G47.33 Obstructive sleep apnea (adult) (pediatric); K21.9 Gastro-esophageal reflux disease without esophagitis; I69.311 Memory deficit following cerebral infarction; I44.0 Atrioventricular block, first degree; F41.8 Other specified anxiety disorders; G47.01 Insomnia due to medical condition; R26.9 Unspecified abnormalities of gait and mobility; Z66 Do not resuscitate; Z74.01 Bed confinement status; Z95.1 Presence of aortocoronary bypass graft; Z68.30 Body mass index [BMI] 30.0-30.9, adult; Z79.84 Long term (current) use of oral hypoglycemic drugs; Z79.899 Other long term (current) drug therapy; Z79.02 Long term (current) use of antithrombotics/antiplatelets; Z90.2 Acquired absence of lung [part of]; Z86.19 Personal history of other infectious and parasitic diseases; Z87.891 Personal history of nicotine dependence; Z91.81 History of falling
CPT/HCPCS: 36415; 71045; 73030; 74177; 80048; 80053; 80202; 81001; 82607; 82746; 83540; 83605; 83690; 84466; 84484; 85025; 87040; 93005; 96361; 96374; 97162; 97166; 97530; 99284; A9270; J3370; J7120; Q9967; 80306; 80307; 81003; 82272; 87086

== ENCOUNTER 2018-10-23 08:00 | Outpatient (CLI) | payer MEDICARE, OTHER ==
[2018-10-23 18:37] LABS: BASOPHILS # (AUTO) 0.1 10^3/uL (0.0-0.1); BASOPHILS % (AUTO) 0.4 %; EOSINOPHILS # (AUTO) 0.2 10^3/uL (0.0-0.7); EOSINOPHILS % (AUTO) 1.1 %; HGB - HEMOGLOBIN 12.2 g/dL (14.0-18.0); LYMPHOCYTES # (AUTO) 2.2 10^3/uL (1.5-3.5); MEAN CORPUSCULAR HEMOGLOBIN 26.6 pg (27.0-31.0); MEAN CORPUSCULAR HGB CONC 31.3 g/dL (32.0-36.0); MEAN CORPUSCULAR VOLUME 85.2 fL (80.0-94.0); MEAN PLATELET VOLUME 9.5 fL (7.4-11.4); MONOCYTES # (AUTO) 0.7 10^3/uL (0.0-1.0); MONOCYTES % (AUTO) 4.5 %; NEUTROPHILS # (AUTO) 11.4 10^3/uL (1.5-6.6); NEUTROPHILS % (AUTO) 78.4 %; PLT - PLATELET COUNT 457 10^3/uL (130-450); RED BLOOD COUNT 4.58 10^6/uL (4.70-6.10); RED CELL DISTRIBUTION WIDTH 17.1 % (12.0-15.0); WHITE BLOOD COUNT 14.5 x10^3/uL (4.8-10.8)
[2018-10-23 18:47] LABS: ALBUMIN 3.5 g/dL (3.2-5.5); ALBUMIN/GLOBULIN RATIO 0.8 (1.0-2.2); BILIRUBIN,TOTAL 0.4 mg/dL (0.2-1.0); CALCIUM 10.2 mg/dL (8.5-10.3); CREATININE 1.1 mg/dL (0.6-1.2)
== END 2018-10-23 23:59 | disposition home or self-care (01) ==
LOC: LAB.WCP 08:00
PROVIDERS: ATTEND Family Medicine
DX: R63.4 Abnormal weight loss (principal)
CPT/HCPCS: 36415; 80053; 84134; 85025

== ENCOUNTER 2018-10-26 12:02 | Outpatient (CLI) | payer MEDICARE, OTHER | END 2018-10-26 12:03 | disposition critical access hospital (66) | LOC: EMS 12:02 | PROVIDERS: ATTEND Surgery | DX: R53.1 Weakness (principal); R41.82 Altered mental status, unspecified; R09.89 Other specified symptoms and signs involving the circulatory and respiratory systems | CPT/HCPCS: A0425; A0427 ==

== ENCOUNTER 2018-10-26 12:26 | Emergency (ER) | payer MEDICARE, OTHER ==
--- NOTE | 2018-10-26 13:03 | ED Physician Documentation ---
PD HPI ALTERED MENTAL STATUS - Stated complaint Stated Complaint: GENERAL WEAKNESS - Chief complaint Chief Complaint: General - History obtained from History obtained from: Patient, Family (son Reports that the patient was sleepy and hard to arouse and seemed confused to this morning. He had been a little bit somnolent and nauseous over the last several days. He had had a new medication started about a week ago and seemed to have nausea confusion and somnolence since starting it. They talked with his neurologist who said to discontinue it so he has been off of it for the last 3 days. The son states the patient was improving yesterday but then seemed more lethargic this morning. He had not been eating well or drinking well over the last week. Son called EMS and the medics found the patient to be hypotensive on first assessment. The gave IV fluids and he improved on route. His blood sugar was normal.), EMS - History of Present Illness Timing - onset: Today (with the AMS, but has been nauseated and poor intake, sleepy and some confused for a week or so, after starting levodopa/carbidopa.) Timing - details: Gradual onset, Still present, Waxing and waning (worse this morning) Quality / character: Less responsive, Confused Associated symptoms: NVD (for a week), General weakness. No: Fever, Headache, Dyspnea, Focal weakness Basline status: Ambulatory, Confused Treatment TAPE STRINGER: Accucheck, Other (iv fluid) Similar symptoms before: Diagnosis (has had similar with UTI and infections and also with dehydration.) Recently seen: Clinic (Neurology over a week ago, with adding new med) Review of Systems Constitutional: denies: Fever Nose: denies: Rhinorrhea / runny nose, Congestion Throat: denies: Sore throat Respiratory: denies: Cough GI: reports: Nausea, Vomiting. denies: Abdominal Pain, Diarrhea : denies: Dysuria, Frequency Skin: denies: Rash, Lesions Neurologic: reports: Generalized weakness. denies: Focal weakness, Difficulty speaking, Headache PD PAST MEDICAL HISTORY - Past Medical History Past Medical History: Yes Cardiovascular: Hypertension, [place] Respiratory: None Neuro: Dementia, CVA Endocrine/Autoimmune: None GI: None : Retention HEENT: None Psych: None Musculoskeletal: None Derm: None - Past Surgical History Past Surgical History: Yes General: Other Ortho: Carpal Tunnel surgery Cardiovascular: CABG - Present Medications Home Medications: Ambulatory Orders Medication Instructions Recorded Confirmed Baclofen 10 mg PO TID 08/27/18 10/26/18 Clopidogrel [Plavix] 75 mg PO DAILY 08/27/18 10/26/18 Docusate Calcium 240 mg PO BID 08/27/18 10/26/18 Finasteride 5 mg PO DAILY 08/27/18 10/26/18 Hydrochlorothiazide 25 mg PO DAILY 08/27/18 10/26/18 Losartan Potassium 100 mg PO DAILY 08/27/18 10/26/18 Metoprolol Tartrate 50 mg PO BID 08/27/18 10/26/18 Nitroglycerin 0.4 mg SL PRN PRN 08/27/18 10/26/18 [place]-3/Dha/Epa/Fish Oil [Fish Oil 1 tab PO DAILY 08/27/18 10/26/18 [place]-3 EC 1,200 mg] Simvastatin [Zocor] 40 mg PO DAILY 08/27/18 10/26/18 Tamsulosin [Flomax] 0.4 mg PO DAILY 08/27/18 10/26/18 amLODIPine [Norvasc] 5 mg PO DAILY 08/27/18 10/26/18 raNITIdine [Zantac] 150 mg PO BID 08/27/18 10/26/18 Cephalexin [Keflex] 500 mg PO TID #20 capsule 10/26/18 Dronabinol 1 cap PO BID 10/26/18 10/26/18 Mirtazapine [Remeron] 15 mg PO DAILY 10/26/18 10/26/18 Ondansetron [Ondansetron Odt] 8 mg PO PRN PRN 10/26/18 10/26/18 - Allergies Allergies/Adverse Reactions: Allergies Allergy/AdvReac Type Severity Reaction Status Date / Time Horse/Equine Containing Allergy Unknown Unknown Verified 10/26/18 12:38 Products lisinopril Allergy Unknown Verified 10/26/18 12:38 - Living Situation Living Situation: reports: With family Living Arrangement: reports: At home - Social History Does the pt smoke?: No Smoking Status: Never smoker Does the pt drink ETOH?: No Does the pt have substance abuse?: No - Immunizations Immunizations are current?: Yes - POLST Patient has POLST: No PD ED PE NORMAL - Vitals Vital signs reviewed: Yes - General General: Alert and oriented X 3, No acute distress, Well developed/nourished - HEENT HEENT: Atraumatic, Pharynx benign - Neck Neck: Supple, no meningeal sign, No adenopathy - Cardiac Cardiac: RRR, No murmur - Respiratory Respiratory: Clear bilaterally - Abdomen Abdomen: Normal bowel sounds, Soft, Non tender, Non distended, No organomegaly - Back Back: No CVA TTP - Derm Derm: Normal color, Warm and dry - Neuro Neuro: production hardener 2-12 intact, No motor deficit, No sensory deficit, Normal speech. No: Alert and oriented X 3 (person and place, not time) Eye Opening: Spontaneous Motor: Obeys Commands Verbal: Oriented GCS Score: 15 - Psych Psych: Normal mood Results - Vitals Vitals: Vital Signs - 24 hr 10/26/18 10/26/18 12:36 14:38 Temperature 37.1 C Heart Rate 69 58 L Respiratory 16 10 L Rate Blood Pressure 101/67 106/63 O2 Saturation 96 97 Oxygen O2 Source [With Activity] Room air O2 Source [Without Activity] Room air O2 Source Room air - EKG (time done) 13:07 Rate: Rate (enter#) (61) Rhythm: NSR [place]: Normal Intervals: Normal NE QRS: Normal Ischemia: Normal ST segments, T wave inversion (V1-V3 without ST changes. ). No: ST elevation c/w ischemia, ST depression - Labs Labs: Laboratory Tests 10/26/18 10/26/18 10/26/18 13:02 13:02 13:02 WBC 11.5 H RBC 4.33 L Hgb 11.5 L Hct 37.3 L MCV 86.1 MCH 26.6 L MCHC 30.8 L RDW 17.1 H Plt Count 381 MPV 9.0 Neut # (Auto) 8.5 H Lymph # (Auto) 1.8 [place] # (Auto) 0.7 Eos # (Auto) 0.3 Baso # (Auto) 0.1 Absolute Nucleated RBC 0.00 Nucleated RBC % 0.0 Sodium 137 Potassium 3.3 L Chloride 95 L Carbon Dioxide 34 H Anion Gap 8.0 BUN 14 Creatinine 1.3 H Estimated GFR (MDRD) 54 L Glucose 182 H Lactic Acid 2.0 Calcium 9.4 Magnesium 2.0 Total Bilirubin 0.6 AST 17 ALT 18 Alkaline Phosphatase 77 Troponin I High Sens Total Protein 7.5 Albumin 3.1 L Globulin 4.3 H Albumin/Globulin Ratio 0.7 L Lipase 34 Urine Color Urine Clarity Urine pH Ur Specific [place] Urine Protein Urine Glucose (UA) Urine Ketones Urine Occult Blood Urine Nitrite Urine Bilirubin Urine Urobilinogen Ur Leukocyte Esterase Urine RBC Urine WBC Ur Squamous Epith Cells Urine Bacteria Ur Microscopic Review Urine Culture Comments 10/26/18 10/26/18 13:02 13:51 WBC RBC Hgb Hct MCV MCH MCHC RDW Plt Count MPV Neut # (Auto) Lymph # (Auto) [place] # (Auto) Eos # (Auto) Baso # (Auto) Absolute Nucleated RBC Nucleated RBC % Sodium Potassium Chloride Carbon Dioxide Anion Gap BUN Creatinine Estimated GFR (MDRD) Glucose Lactic Acid Calcium Magnesium Total Bilirubin AST ALT Alkaline Phosphatase Troponin I High Sens 9.1 Total Protein Albumin Globulin Albumin/Globulin Ratio Lipase Urine Color YELLOW Urine Clarity CLEAR Urine pH 7.0 Ur Specific [place] <=1.005 Urine Protein NEGATIVE Urine Glucose (UA) NEGATIVE Urine Ketones NEGATIVE Urine Occult Blood NEGATIVE Urine Nitrite NEGATIVE Urine Bilirubin NEGATIVE Urine Urobilinogen 0.2 (NORMAL) Ur Leukocyte Esterase SMALL H Urine RBC None Seen Urine WBC 6-10 H Ur Squamous Epith Cells RARE Squamous Urine Bacteria Rare Ur Microscopic Review INDICATED Urine Culture Comments INDICATED PD MEDICAL DECISION MAKING - ED course Complexity details: reviewed results, re-evaluated patient (Alertness and blood pressure improved with IV fluids. His son says he is at his normal self at this point.), considered differential (Sounds likely to have some medication side effects which cause nausea and vomiting and poor intake. He is now seeming dehydrated. His blood pressure was transiently low but improved with IV fluids. There is no report of focal deficits nor head injury. Will check labs and urine test and also check for heart attack.), d/w patient Departure - Departure Disposition: 01 Home, Self Care Clinical Impression: Transient hypotension, Dehydration Altered mental status Qualifiers: Altered mental status type: delirium Qualified Code(s): R41.0 - Disorientation, unspecified UTI (urinary tract infection) Qualifiers: Urinary tract infection type: acute cystitis Hematuria presence: without hematuria Qualified Code(s): N30.00 - Acute cystitis without hematuria Condition: Stable Record reviewed to determine appropriate education?: Yes Instructions: ED Dehydration, ED UTI Cystitis Male Follow-Up: Abran Burt MD [Primary Care Provider] - Prescriptions: Cephalexin [Keflex] 500 mg PO TID #20 capsule Comments: I would hold your losartan 100 mg tablet for now. Still continue the prior caution of checking blood pressure before giving the metoprolol has had been previously suggested. Continue to stay off the carbidopa levodopa. Use the ondansetron if needed for nausea. Cephalexin 3 times a day for a week for mild bladder infection. Encourage frequent fluids to maintain hydration. Recheck if not improving over the next several days. Check blood pressure daily and see how it is doing. If it stays in the normal range, then just stay off the losartan.
[2018-10-26] MEDS ORDERED: SODIUM CHLORIDE 0.9% 1,000 ML IV ONE ×2 (13:04→14:18)
[2018-10-26 13:15] LABS: BASOPHILS # (AUTO) 0.1 10^3/uL (0.0-0.1); BASOPHILS % (AUTO) 0.4 %; EOSINOPHILS # (AUTO) 0.3 10^3/uL (0.0-0.7); EOSINOPHILS % (AUTO) 2.6 %; HGB - HEMOGLOBIN 11.5 g/dL (14.0-18.0); LYMPHOCYTES # (AUTO) 1.8 10^3/uL (1.5-3.5); LYMPHOCYTES % (AUTO) 15.9 %; MEAN CORPUSCULAR HEMOGLOBIN 26.6 pg (27.0-31.0); MEAN CORPUSCULAR HGB CONC 30.8 g/dL (32.0-36.0); MEAN CORPUSCULAR VOLUME 86.1 fL (80.0-94.0); MONOCYTES # (AUTO) 0.7 10^3/uL (0.0-1.0); MONOCYTES % (AUTO) 6.4 %; NEUTROPHILS # (AUTO) 8.5 10^3/uL (1.5-6.6); NEUTROPHILS % (AUTO) 74.1 %; PLT - PLATELET COUNT 381 10^3/uL (130-450); RED BLOOD COUNT 4.33 10^6/uL (4.70-6.10); RED CELL DISTRIBUTION WIDTH 17.1 % (12.0-15.0); WHITE BLOOD COUNT 11.5 x10^3/uL (4.8-10.8)
[2018-10-26 13:24] LABS: BILIRUBIN,TOTAL 0.6 mg/dL (0.2-1.0); CALCIUM 9.4 mg/dL (8.5-10.3); CREATININE 1.3 mg/dL (0.6-1.2)
[2018-10-26 13:25] LABS: ALBUMIN 3.1 g/dL (3.2-5.5); ALBUMIN/GLOBULIN RATIO 0.7 (1.0-2.2); TOTAL PROTEIN 7.5 g/dL (6.7-8.2)
[2018-10-26 14:02] LABS: BILIRUBIN,URINE NEGATIVE (NEGATIVE); GLUCOSE, URINE (UA) NEGATIVE (NEGATIVE); KETONES,URINE (UA) NEGATIVE (NEGATIVE); LEUKOCYTE ESTERASE, URINE SMALL (NEGATIVE); NITRITE,URINE NEGATIVE (NEGATIVE); OCCULT BLOOD,URINE NEGATIVE (NEGATIVE); PROTEIN,URINE NEGATIVE (NEGATIVE); UROBILINOGEN,URINE 0.2 (NORMAL) E.U./dL (NORMAL)
[2018-10-26 14:07] LABS: CLARITY,URINE CLEAR (CLEAR)
[2018-10-26 14:10] LABS: BACTERIA,URINE Rare /HPF (None Seen); RBC,URINE None Seen /HPF (0-5); SQUAMOUS EPITHELIAL CELL,UR RARE Squamous (<= Few)
[2018-10-26] MEDS ORDERED: cefTRIAXone 1 GM in SODIUM CHLORIDE 0.9% MINIBAG 100 ML IV STA (14:12)
[2018-10-26 15:36] VITALS: BP 90/57
== END 2018-10-26 15:48 | disposition home or self-care (01) ==
LOC: ED 12:26
DX: E86.0 Dehydration (principal); I95.9 Hypotension, unspecified; R41.0 Disorientation, unspecified; I10 Essential (primary) hypertension; N30.00 Acute cystitis without hematuria
CPT/HCPCS: 36415; 80053; 81001; 81003; 83605; 83690; 83735; 84484; 85025; 87086; 93005; 96361; 96365; 99284

== ENCOUNTER 2018-10-27 13:34 | Outpatient (CLI) | payer MEDICARE, OTHER | END 2018-10-27 13:35 | disposition critical access hospital (66) | LOC: EMS 13:34 | PROVIDERS: ATTEND Surgery | DX: R41.82 Altered mental status, unspecified (principal) | CPT/HCPCS: A0425; A0429 ==

== ENCOUNTER 2018-10-27 13:53 | Inpatient (IN) | payer MEDICARE, OTHER ==
[2018-10-27] MEDS ORDERED: SODIUM CHLORIDE 0.9% 1,000 ML IV ONE (14:06)
--- NOTE | 2018-10-27 14:10 | ED Physician Documentation ---
PD HPI FOCAL NEURO - Stated complaint Stated Complaint: AMS - Chief complaint Chief Complaint: Neuro - History obtained from History obtained from: Patient, EMS - History of Present Illness Timing - onset: Yesterday (This is a 73-year-old gentleman with history of coronary disease status post remote bypass, history of stroke with some cognitive deficits and right-sided residual deficits. He is brought in by ambulance. Initially the son is not here, so no initial history from him but I am led to believe he is coming soon. The history from it is from the paramedics, the patient, and review of the chart. He was here yesterday for weakness. Patient thinks he was here yesterday for a tetanus shot. He is worried that his son thought he was having an abnormal reaction to the tetanus shot but per the paramedics his mental status is worse today. Patient has no specific complaints. From review of the chart it sounds like he was doing well after IV fluids yesterday, it was chalked up to june be a new medication. That was stopped. Of note it looks like he still on dronabinol which is new.) - Additional information Additional information: Further information from the son. He is been on dronabinol for a few days. He came off of his carbidopa levodopa. He is also on Remeron. He was doing very well yesterday. This morning had shaking chills and was unresponsive. He also had a cough. Review of Systems Unable to obtain: Confused PD PAST MEDICAL HISTORY - Past Medical History Cardiovascular: Hypertension, [place] Respiratory: None Neuro: Dementia, CVA Endocrine/Autoimmune: None GI: None : Retention HEENT: None Psych: None Musculoskeletal: None Derm: None - Past Surgical History Past Surgical History: Yes General: Other Ortho: Carpal Tunnel surgery Cardiovascular: CABG - Present Medications Home Medications: Ambulatory Orders Medication Instructions Recorded Confirmed Baclofen 10 mg PO TID 08/27/18 10/27/18 Clopidogrel [Plavix] 75 mg PO DAILY 08/27/18 10/27/18 Docusate Calcium 240 mg PO BID 08/27/18 10/26/18 Finasteride 5 mg PO DAILY 08/27/18 10/27/18 Hydrochlorothiazide 25 mg PO DAILY 08/27/18 10/26/18 Losartan Potassium 100 mg PO DAILY 08/27/18 10/26/18 Metoprolol Tartrate 50 mg PO BID 08/27/18 10/26/18 Nitroglycerin 0.4 mg SL PRN PRN 08/27/18 10/26/18 [place]-3/Dha/Epa/Fish Oil [Fish Oil 1 tab PO DAILY 08/27/18 10/26/18 [place]-3 EC 1,200 mg] Simvastatin [Zocor] 40 mg PO DAILY 08/27/18 10/26/18 Tamsulosin [Flomax] 0.4 mg PO DAILY 08/27/18 10/26/18 amLODIPine [Norvasc] 5 mg PO DAILY 08/27/18 10/27/18 raNITIdine [Zantac] 150 mg PO BID 08/27/18 10/26/18 Dronabinol 2.5 mg PO TID 10/26/18 10/26/18 Mirtazapine [Remeron] 15 mg PO DAILY 10/26/18 10/26/18 Ondansetron [Ondansetron Odt] 8 mg PO PRN PRN 10/26/18 10/26/18 Carbidopa/Levodopa 25/250 [Sinemet 1 tab PO 0800,1200,1700 10/27/18 25 mg/250 mg] Donepezil HCl 5 mg PO QPM 10/27/18 10/27/18 - Allergies Allergies/Adverse Reactions: Allergies Allergy/AdvReac Type Severity Reaction Status Date / Time Horse/Equine Containing Allergy Unknown Unknown Verified 10/26/18 12:38 Products lisinopril Allergy Unknown Verified 10/26/18 12:38 - Social History Does the pt smoke?: No Smoking Status: Never smoker Does the pt drink ETOH?: No Does the pt have substance abuse?: No - Immunizations Immunizations are current?: Yes - POLST Patient has POLST: No PD ED PE NORMAL - Vitals Vital signs reviewed: Yes - General General: Other (He is alert and oriented to person, he knows he is in the [place] but not why. He can state where he lives. He cannot come up with the date.) - HEENT HEENT: Other (Difficulty with cranial nerve testing, he seems to have difficulty following instructions. He does seem to have some nystagmus. Pupils are small.) - Neck Neck: Supple, no meningeal sign, No bony TTP - Cardiac Cardiac: RRR, No murmur - Respiratory Respiratory: No respiratory distress, Clear bilaterally - Abdomen Abdomen: Soft, Non tender - Back Back: No CVA TTP, No spinal TTP - Derm Derm: Normal color, Warm and dry - Extremities Extremities: No edema, No calf tenderness / cord - Neuro Neuro: Alert and oriented X 3, Normal speech Results - Vitals Vitals: Vital Signs - 24 hr 10/27/18 10/27/18 10/27/18 13:57 14:09 14:59 Temperature 36.4 C L Heart Rate 76 93 Respiratory 17 16 Rate Blood Pressure 118/76 124/75 119/68 O2 Saturation 100 97 10/27/18 10/27/18 15:57 16:00 Temperature Heart Rate 74 98 Respiratory 19 17 Rate Blood Pressure 123/72 115/83 H O2 Saturation 99 96 Oxygen O2 Source [With Activity] Room air O2 Source [Without Activity] Room air O2 Source Room air - Labs Labs: Laboratory Tests 10/27/18 10/27/18 10/27/18 14:43 14:43 14:54 WBC 11.4 H RBC 3.99 L Hgb 10.9 L Hct 35.0 L MCV 87.7 MCH 27.3 MCHC 31.1 L RDW 17.2 H Plt Count 318 MPV 8.9 Neut # (Auto) 7.9 H Lymph # (Auto) 2.2 [place] # (Auto) 0.8 Eos # (Auto) 0.4 Baso # (Auto) 0.1 Absolute Nucleated RBC 0.00 Nucleated RBC % 0.0 Sodium 141 Potassium 3.4 L Chloride 103 Carbon Dioxide 30 Anion Gap 8.0 BUN 10 Creatinine 1.1 Estimated GFR (MDRD) 65 L Glucose 112 H Calcium 8.8 Total Bilirubin 0.3 AST 13 ALT 15 Alkaline Phosphatase 67 Total Protein 6.5 L Albumin 2.9 L Globulin 3.6 Albumin/Globulin Ratio 0.8 L Lipase 29 Urine Color YELLOW Urine Clarity CLEAR Urine pH 6.0 Ur Specific [place] 1.010 Urine Protein NEGATIVE Urine Glucose (UA) NEGATIVE Urine Ketones NEGATIVE Urine Occult Blood SMALL H Urine Nitrite NEGATIVE Urine Bilirubin NEGATIVE Urine Urobilinogen 0.2 (NORMAL) Ur Leukocyte Esterase NEGATIVE Urine RBC 0-5 Urine WBC 0-3 Ur Squamous Epith Cells NONE SEEN Urine Bacteria None Seen Ur Microscopic Review INDICATED Urine Culture Comments NOT INDICATED Urine Opiates Screen NEGATIVE Ur Oxycodone Screen NEGATIVE Urine Methadone Screen NEGATIVE Ur Propoxyphene Screen NEGATIVE Ur Barbiturates Screen NEGATIVE Ur Tricyclics Screen NEGATIVE Ur Phencyclidine Scrn NEGATIVE Ur Amphetamine Screen NEGATIVE U Methamphetamines Scrn NEGATIVE U Benzodiazepines Scrn NEGATIVE Urine Cocaine Screen NEGATIVE U Cannabinoids Screen POSITIVE H Ethyl Alcohol < 5.0 PD MEDICAL DECISION MAKING - ED course ED course: 73-year-old gentleman presents by ambulance very altered. Most of the history is from the son and review of the chart. He did have Rigor's today, however no other findings of infection now. Head CT and chest x-ray were negative. Labs are basically unremarkable with the exception of positive marijuana which could be from the dronabinol that he is taking which may be partly or completely causative. Spoke with Dr. Moran for admission at 3:55 PM Departure - Departure Disposition: 66 [facility] DC/Xfer Clinical Impression: History of CVA with residual deficit, Hx of CABG, General weakness, Polypharmacy Anemia Qualifiers: Anemia type: unspecified type Qualified Code(s): D64.9 - Anemia, unspecified Altered mental status Qualifiers: Altered mental status type: unspecified Qualified Code(s): R41.82 - Altered mental status, unspecified Condition: Serious
[2018-10-27 14:46] LABS: BASOPHILS # (AUTO) 0.1 10^3/uL (0.0-0.1); BASOPHILS % (AUTO) 0.4 %; EOSINOPHILS # (AUTO) 0.4 10^3/uL (0.0-0.7); EOSINOPHILS % (AUTO) 3.4 %; HGB - HEMOGLOBIN 10.9 g/dL (14.0-18.0); LYMPHOCYTES # (AUTO) 2.2 10^3/uL (1.5-3.5); LYMPHOCYTES % (AUTO) 18.9 %; MEAN CORPUSCULAR HEMOGLOBIN 27.3 pg (27.0-31.0); MEAN CORPUSCULAR HGB CONC 31.1 g/dL (32.0-36.0); MEAN CORPUSCULAR VOLUME 87.7 fL (80.0-94.0); MEAN PLATELET VOLUME 8.9 fL (7.4-11.4); MONOCYTES # (AUTO) 0.8 10^3/uL (0.0-1.0); MONOCYTES % (AUTO) 7.3 %; NEUTROPHILS # (AUTO) 7.9 10^3/uL (1.5-6.6); NEUTROPHILS % (AUTO) 69.3 %; PLT - PLATELET COUNT 318 10^3/uL (130-450); RED BLOOD COUNT 3.99 10^6/uL (4.70-6.10); RED CELL DISTRIBUTION WIDTH 17.2 % (12.0-15.0); WHITE BLOOD COUNT 11.4 x10^3/uL (4.8-10.8)
--- NOTE | 2018-10-27 14:52 | CT Report ---
Reason: altered Procedure Date: 10/27/2018 Accession Number: [id number] / [id number] Procedure: CT - HEAD WO CPT Code: FULL RESULT: EXAM: CT HEAD EXAM DATE: 10/27/2018 02:24 PM. CLINICAL HISTORY: Altered mental status. COMPARISON: MRI BRAIN W/WO 07/26/2018 10:[address] head without contrast 07/21/2010. TECHNIQUE: Multiaxial CT images were obtained from the foramen magnum to the vertex. Reformats: Sagittal and coronal. IV contrast: None. In accordance with CT protocol optimization, one or more of the following dose reduction techniques were utilized for this exam: automated exposure control, adjustment of mA and/or KV based on patient size, or use of iterative reconstructive technique. FINDINGS: Parenchyma: No intraparenchymal hemorrhage. No evidence of mass, midline shift, or CT findings of acute infarction. There are old lacunar infarcts of the bilateral thalami and basal ganglia, as seen on prior exams. Montez-white differentiation is distinct. Diffuse chronic microangiopathic white matter changes are evident. Extraaxial Spaces: Normal for age. No subdural or epidural collections identified. Ventricles: The ventricles and cortical sulci are enlarged, consistent with age-related tissue loss. Sinuses and orbits: Imaged paranasal sinuses, orbits, and mastoids show no significant abnormality. Bones: No evidence of fracture or calvarial defect. Other: None. IMPRESSION: 1. No intracranial hemorrhage, mass-effect, CT evidence of acute infarct, or other acute intracranial abnormality. 2. Stable appearance of old lacunar infarcts of the bilateral thalami and basal ganglia. 3. Generalized age-related cortical atrophic changes. RADIA
[2018-10-27 14:57] LABS: ALBUMIN 2.9 g/dL (3.2-5.5); ALBUMIN/GLOBULIN RATIO 0.8 (1.0-2.2); ALKALINE PHOSPHATASE 67 IU/L (42-121); ALT ALANINE AMINOTRANSFERASE 15 IU/L (10-60); AST ASPARTATE AMINOTRANSFERASE 13 IU/L (10-42); BILIRUBIN,TOTAL 0.3 mg/dL (0.2-1.0); BUN - BLOOD UREA NITROGEN 10 mg/dL (6-20); CALCIUM 8.8 mg/dL (8.5-10.3); CARBON DIOXIDE - CO2 30 mmol/L (21-32); CHLORIDE 103 mmol/L (101-111); CREATININE 1.1 mg/dL (0.6-1.2); GFR - MDRD 65 (>89); GLUCOSE 112 mg/dL (70-100); LIPASE 29 U/L (22-51); SODIUM 141 mmol/L (135-145); TOTAL PROTEIN 6.5 g/dL (6.7-8.2)
[2018-10-27 15:07] LABS: MUDS CUTOFF CONCENTRATIONS CUTOFF CONC BELOW:
[2018-10-27 15:09] LABS: BILIRUBIN,URINE NEGATIVE (NEGATIVE); GLUCOSE, URINE (UA) NEGATIVE (NEGATIVE); KETONES,URINE (UA) NEGATIVE (NEGATIVE); LEUKOCYTE ESTERASE, URINE NEGATIVE (NEGATIVE); NITRITE,URINE NEGATIVE (NEGATIVE); OCCULT BLOOD,URINE SMALL (NEGATIVE); PROTEIN,URINE NEGATIVE (NEGATIVE); UROBILINOGEN,URINE 0.2 (NORMAL) E.U./dL (NORMAL)
[2018-10-27 15:10] LABS: CLARITY,URINE CLEAR (CLEAR)
[2018-10-27 15:25] LABS: AMPHETAMINE SCREEN,URINE NEGATIVE (NEGATIVE); BACTERIA,URINE None Seen /HPF (None Seen); BENZODIAZEPINES SCREEN, URINE NEGATIVE (NEGATIVE); COCAINE SCREEN URINE NEGATIVE (NEGATIVE); METHADONE SCREEN, URINE NEGATIVE (NEGATIVE); METHAMPHETAMINES SCREEN, URINE NEGATIVE (NEGATIVE); OPIATE SCREEN, URINE NEGATIVE (NEGATIVE); OXYCODONE SCREEN, URINE NEGATIVE (NEGATIVE); PROPOXYPHENE SCREEN, URINE NEGATIVE (NEGATIVE); RBC,URINE 0-5 /HPF (0-5); SQUAMOUS EPITHELIAL CELL,UR NONE SEEN (<= Few); TRICYCLIC ANTIDEPRESSANT,URINE NEGATIVE (NEGATIVE)
--- NOTE | 2018-10-27 15:29 | XRAY Report ---
Reason: rigors Procedure Date: 10/27/2018 Accession Number: [id number] / [id number] Procedure: XR - Chest 2 View X-Ray CPT Code: 75465 FULL RESULT: EXAM: CHEST RADIOGRAPHY EXAM DATE: 10/27/2018 03:21 PM. CLINICAL HISTORY: Chills. Rigors. COMPARISON: CHEST 1 VIEW 08/29/2018 2:36 PM. TECHNIQUE: 2 views. FINDINGS: Lungs/Pleura: No focal opacities evident. No pleural effusion. No pneumothorax. Normal volumes. Mediastinum: Heart and mediastinal contours are unremarkable. Other: Median sternotomy wires and surgical clips consistent with CABG is seen. IMPRESSION: No acute cardiopulmonary abnormality demonstrated. RADIA
[2018-10-27] MEDS ORDERED: SODIUM CHLORIDE FLUSH 0.9% 10 ML SYRINGE IVP PRN (16:03)
--- NOTE | 2018-10-27 16:06 | HISTORY & PHYSICAL EXAMINATION ---
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 He was brought in by EMS for continued altered mental status and lethargy. He was seen in the ED yesterday after his home health nurse reported lethargy, weakness, low B/Ps, difficult to get an oxygen reading, very cold skin, rigors, and confusion. He was given 2-3L of IVFs, and sent home. His son, Carlin who lives with him reported that his father was much improved after his ED visit, but after he awoke this morning, the confusion worsened, along with the other symptoms, so again called EMS. Upon arrival today in the ED, the patient believed that he returned for a tetanus shot, had continued rigors, was mildly cyanotic, cool clammy skin, mild nausea, normal vital signs except some tachycardia with heart rates 90-110's, light blood pressures 119/68, required no oxygen and was still confused. Labs showed an elevated WBC count of 11.4, anemia with an H/H of 10. 9/35.0, normal platelets of 318, neut # 7.9, potassium 3.4, GFR 65, glucose 112, total protein 6.5, albumin 2.9, normal troponin, normal lipase, normal lactic acid of 2.0, UA was unremarkable, and + cannabinoid in MUDDs urine, but is prescribed dronabinol for appetite stimulation. Upon my interview with the patient's son, Carlin who states he is also his father's POA; he notes that he wonders if the culprit of his father's confusion has been the mix of new medication changes including the Sinemet from the neurologist causing poor appetite, worsening weakness, confusion, and overall expedited decline. He states that since his father was discharged from [facility] on 08/31/2018, his decline has been much worse, and feels that his UTI is still a problem. He will be admitted for inpatient care, a medication review, and further work up to his acute metabolic encephalopathy. History - Past Medical History Cardiovascular: reports: Congestive heart failure, Hypertension, High cholesterol, Coronary artery disease, Peripheral Vascular Disease, AR Respiratory: reports: COPD, Pneumonia, Sleep apnea Neuro: reports: Dementia, CVA, Peripheral neuropathy, Tremors Endocrine/Autoimmune: reports: Type 2 diabetes GI: reports: GERD, Other (dysphagia) MANAGING MANAGER: reports: None : reports: Benign prostate hypertrophy, Retention, Incontinence, Renal insuffiency, Nocturia, Frequency HEENT: reports: Chronic vision loss, Chronic sinusitis, Chronic hearing loss Psych: reports: Depression Musculoskeletal: reports: Osteoarthritis, Chronic back pain Derm: reports: None MRSA Hx?: No - Past Surgical History General: reports: Other Ortho: reports: Carpal Tunnel surgery Cardiovascular: reports: CABG, Lobectomy (left lung-partial) Other past surgical history: lobectomy after histoplasmosis - Family & Social History Family History: Mother: , Father: Family History Comment/Other: Father: from CAD/acute AR, had HTN. Mother: metastatic lung CA to the brain, kidney cancer. He was an only child, no siblings. 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 His son, Carlin and his fiance stay with him currently for extra help and also has care-givers who come in at least daily. The patient denies recent alcohol use, tobacco or illicit drug use. He admits to smoking 2-3 PPD x25 years, and quit in 2000 after having his CABG surgery. There is a current POLST on file of which he and his son confirm DNR. - Substance History Use: Uses substance without health or social issues: NONE Abuse: Recurrent use of substance despite neg consequences: NONE Dependence: Experiences withdrawal or developed tolerances: NONE - POLST Patient has POLST: Yes POLST Status: DNR Meds/Allgy - Home Medications Home Medications: Ambulatory Orders Medication Instructions Recorded Confirmed Baclofen 10 mg PO TID 08/27/18 10/27/18 Clopidogrel [Plavix] 75 mg PO DAILY 08/27/18 10/27/18 Docusate Calcium 240 mg PO BID 08/27/18 10/27/18 Finasteride 5 mg PO DAILY 08/27/18 10/27/18 Hydrochlorothiazide 25 mg PO DAILY 08/27/18 10/27/18 Losartan Potassium 100 mg PO DAILY 08/27/18 10/27/18 Metoprolol Tartrate 50 mg PO BID 08/27/18 10/27/18 Nitroglycerin 0.4 mg SL PRN PRN 08/27/18 10/27/18 Simvastatin [Zocor] 40 mg PO QPM 08/27/18 10/27/18 Tamsulosin [Flomax] 0.4 mg PO DAILY 08/27/18 10/27/18 amLODIPine [Norvasc] 5 mg PO DAILY 08/27/18 10/27/18 raNITIdine [Zantac] 150 mg PO BID 08/27/18 10/27/18 Dronabinol 2.5 mg PO 0700,1600 10/26/18 10/27/18 Mirtazapine [Remeron] 15 mg PO DAILY 10/26/18 10/27/18 Ondansetron [Ondansetron Odt] 8 mg PO PRN PRN 10/26/18 10/27/18 [place]-3 Acid Ethyl Esters [Lovaza] 1 cap PO DAILY 10/27/18 10/27/18 cephALEXin [Cephalexin] 500 mg PO [id number] 10/27/18 10/27/18 - Allergies Allergies/Adverse Reactions: Allergies Allergy/AdvReac Type Severity Reaction Status Date / Time Horse/Equine Containing Allergy Unknown Unknown Verified 10/26/18 12:38 Products lisinopril Allergy Unknown Verified 10/26/18 12:38 Review of Systems - Constitutional Constitutional: reports: Fatigue, Chills, Weakness, Poor appetite, Weight loss (at least 20 lbs in the past 60-days) - Eyes Eyes: reports: Vision loss - Ears, Nose & Throat Ears, Nose & Throat: reports: Hearing loss, Postnasal drainage, Sore throat - Cardiovascular Cariovascular: reports: Edema, Lightheadedness, Decr. exercise tolerance, Orthopnea - Respiratory Respiratory: reports: Cough, Orthopnea, SOB at rest, SOB with exertion - Gastrointestinal Gastrointestinal: reports: Abdominal distention, Constipation, Change in bowel habits, Nausea, Vomiting, Reflux/heartburn, Bloating, Poor appetite - Genitourinary Genitourinary: reports: Dysuria, Frequency, Urgency, Incontinence, Nocturia - Musculoskeletal Musculoskeletal: reports: Back pain, Muscle aches, Stiffness, Limited range of m otion, Muscle weakness - Integumentary Integumentary: reports: Dryness - Neurological Neurological: reports: General weakness, Focal weakness, Dizziness, Numbness, Memory problems, Pre-existing deficit - Psychiatric Psychiatric: reports: Depression - Endocrine Endocrine: reports: Intolerance to cold - Hematologic/Lymphatic Hematologic/Lymphatic: reports: Anemia, Recurrent infections - All Other Systems All Other Systems: reports: Reviewed and negative Exam - Vital Signs Reviewed Vital Signs: Yes Vital Signs: Vital Signs x48h Temp Pulse Resp BP Pulse Ox 10/27/18 15:57 74 19 123/72 99 10/27/18 14:59 93 16 119/68 97 10/27/18 14:09 124/75 10/27/18 13:57 36.4 C L 76 17 118/76 100 - Physical Exam General Appearance: positive: Alert, Moderate distress Eyes Bilateral: positive: PERRL ENT: positive: Pharyngeal erythema, Dry mucous membranes Neck: positive: No JVD, Lymphadenopathy (R), Lymphadenopathy (L), Stiff neck Respiratory: positive: Chest non-tender, No respiratory distress, Wheezes, Rhonchi Cardiovascular: positive: No gallop, Irregularly irregular, Systolic murmur, Decreased pulse(s) Peripheral Pulses: positive: 1+ Abdomen: positive: Tenderness, Hepatomegaly, Abnml bowel sounds (hypoactive) Back: positive: Nml inspection Skin: positive: No rash, Warm, Dry, Pallor Extremities: positive: Non-tender, Full ROM, Pedal edema, Joint swelling Neurologic/Psychiatric: positive: Disoriented to place, Disoriented to time, Weakness, Sensory loss, Slurred/abnml speech (sluggish), Depressed mood/affect Reflexes: Bicep (R): 2+, Bicep (L): 3+ Conclusion/Plan - Problem List (1) Acute metabolic encephalopathy Conclusion/Plan: -Known history of vascular dementia, last saw neurology on 09/25/2018 who prescribed Sinemet, now stopped -Has home health services who notes that the patient has been less responsive, had cold extremities, and appeared dehydrated prior to EMS being called -On my exam, the patient is disorientated, calls his son by the wrong name, and has problems answering simple questions -Contributing factors include; Nutritional disorders, polypharmacy, acute illness, history of vascular dementia, falls, DM2, status post CABG, status post CVA, history of depression, sleep deprivation, electrolyte abnormalities, renal insufficiency, hypoxia, and dehydration Plan: Medication review, ABG/EKG per RT, Maintain healthy sleep/wake schedule, prevent hypothermia, IVFs, echo ordered for Monday, hold all home meds, avoid narcotics, routine labs, check TSH, ammonia, blood cultures, and monitor vital signs Leukocytosis -Mild tachycardia, 90-110s, chills, rigors, no documented fevers -WBC count 11.4 -Suspect this may be due to unresolved complicated UTI with recent failure to treatment Plan: Start Rocephin, blood cultures x2, routine labs, monitor for hypothermia Acute bacterial prostatitis -Recurrent UTI symptoms, dysuria, nocturia, frequency, incontinent, and delirium -UA collected in the ED does not show acute infection, but likely due to reduced bacterial count from recent treatment -Indwelling pitts for the patients known history of BPH, and urinary retention Plan: Continue indwelling pitts, obtain BC x2, then start Rocephin with transition to TMP-sulfa for a 28-day course Vascular Dementia -Memory impairment -Was referred to neurology by PCP and last saw Nadege Odonnell MD on 09/25/2018 -Since his stroke in 2010, has had very profound short term memory loss -Status post Aricept, now stopped for falls -Scored 11 out of 30 on a MMSE exam given by PCP -Was started on sinemet 1 tab TID, now stopped by the patients son since his latest delirium episode, which led to this admission Plan: Continue to monitor, hold home meds, introduce gradually as needed, PT/OT evaluation Dysphagia -Noted on review of outside records, Dr. 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 - Heavy tobacco user 2-3 PPD x25 years, quit in 2000 - No home oxygen or chronic inhalers, no recent PNA - Complains of recent cough, +orthopnea, unknown compliance in the recent past with home CPAP Plan: Obtain VBG to establish pH, nebulizers per RT if indicated 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 -Echo for Monday, no echo is found -[facility] from 03/2017; seen by Radha Segundo MD -Myoview 03/2014: EF 71%, no evidence of ischemia/infarction -Echocardiogram 03/2014 EF 55% with hypokinesis in the LAD territory -CT coronary 2012: BRANDT and 3 SVG grafts are patent -Stroke 2010 w/ right hemiparesis -First degree AV block Plan: Obtain an echocardiogram on Monday, hold all meds for now, telemetry, and avoid fluid boluses, IV fluids tonight at only 83 mL per hour Dyspnea on exertion -Multifactorial; including COPD, deconditioning, malnutrition, prior obesity, combined diastolic and systolic heart failure with CAD Plan: Respiratory care, incentive spirometry, and duo-nebs for SOB as needed Coronary artery disease -FPC Plavix since status post 4-vessel CABG in 2000 -Statin therapy with a goal of LDL less than 70 -Maintain B/P Plan: Continue to monitor, resume home Plavix, hold all other meds for now, monitor on telemetry Obstructive sleep apnea -Last known checkup was 12/15/2016: Also with hypopnea syndrome- noted to be severe -Last CPAP settings were; CPAP pressure at 7-10 cm H2O, was to return in 6 months -Unknown if the patient has been wearing his home device, suspect not since recent weight loss and increased confusion Severe protein-calorie malnutrition -Recent weight loss since arriving at [facility] in which family reports up to 20 lbs -Ongoing loss of appetite, very few bowel movements, quick decline in function -Patients son notes that it first started after getting his first UTI -Status post Remeron and dronabinol started at [facility] to promote an appetite Plan: Nutritional consult, ordering a general diet with protein supplements, ST swallow evaluation Anorexia -Not purposeful, slow decline in eating, nausea and vomiting are ongoing -Weight loss as a result Plan: continue to encourage meals, PT/OT/ST, and dietitian to be consulted Polypharmacy -Outside records listed several sedating medications and on the patients last discharge including; Effexor, Baclofen, Dronabinol, Remeron, Sinemet, & Donepezil -All now on hold, since medication review given acute encephalopathy Plan: Continue to monitor, only resume essential medications, avoid narcotics, and encourage activity, fall precautions, plan to update PCP upon discharge - Lab Results Lab results reviewed: Yes Fish Bones: 10/28/18 04:50 10/28/18 04:50 - Diagnostic Imaging Results Diagnostic Imaging Results: positive: Final report reviewed Diagnostic Imaging Results Comments: EXAM: CT HEAD EXAM DATE: 10/27/2018 02:24 PM IMPRESSION: 1. No intracranial hemorrhage, mass-effect, CT evidence of acute infarct, or other acute intracranial abnormality. 2. Stable appearance of old lacunar infarcts of the bilateral thalami and basal ganglia. 3. Generalized age- related cortical atrophic changes. EXAM: CHEST RADIOGRAPHY EXAM DATE: 10/27/2018 03:21 PM. IMPRESSION: No acute cardiopulmonary abnormality demonstrated. Core Measures - Anticipated LOS I expect patient to be DC'd or transferred within 96 hours.: Yes - DVT/VTE - Prophylaxis VTE/DVT Device ordered at admit?: Yes VTE/DVT Prophylaxis med ordered at admit?: Yes - Stroke - Rehab Assessment Rehab services assessment to be ordered?: Yes - AMI - Statin at Admit Aspirin Prescribed on Admit: Yes
[2018-10-27] MEDS ORDERED: NITROGLYCERIN SL 0.4 MG TABLET SL PRN (17:02)
[2018-10-27] MEDS ORDERED: LIDOCAINE 2% URO-JET 5 ML SYRINGE UR PRN (17:13)
[2018-10-27] MEDS: SODIUM CHLORIDE FLUSH 0.9% 10 ML SYRINGE IVP SCH (17:28)
[2018-10-27] MEDS: NS W/20 MEQ KCL 1,000 ML IV SCH (17:52)
[2018-10-27 18:41] LABS: VBG BASE EXCESS 5.9 mmol/L (-2 - +2); VBG PCO2 49.6 mmHg (41-51); VBG PH 7.419 (7.31-7.41); VBG PO2 27.6 mmHg (25-47); VBG TOTAL CO2 32.9 mmol/L (24-29)
[2018-10-27] MEDS: METOPROLOL SUCCINATE 25 MG TABLET PO SCH (19:48)
[2018-10-28] MEDS: SODIUM CHLORIDE FLUSH 0.9% 10 ML SYRINGE IVP SCH ×3 (01:14→16:27)
[2018-10-28 05:02] LABS: BASOPHILS % (AUTO) 0.4 %; EOSINOPHILS # (AUTO) 0.4 10^3/uL (0.0-0.7); EOSINOPHILS % (AUTO) 4.5 %; HGB - HEMOGLOBIN 9.9 g/dL (14.0-18.0); LYMPHOCYTES # (AUTO) 2.2 10^3/uL (1.5-3.5); LYMPHOCYTES % (AUTO) 22.8 %; MEAN CORPUSCULAR HEMOGLOBIN 27.5 pg (27.0-31.0); MEAN CORPUSCULAR HGB CONC 31.4 g/dL (32.0-36.0); MEAN CORPUSCULAR VOLUME 87.5 fL (80.0-94.0); MEAN PLATELET VOLUME 8.9 fL (7.4-11.4); MONOCYTES # (AUTO) 0.8 10^3/uL (0.0-1.0); MONOCYTES % (AUTO) 8.5 %; NEUTROPHILS % (AUTO) 63.1 %; PLT - PLATELET COUNT 296 10^3/uL (130-450); RED CELL DISTRIBUTION WIDTH 17.2 % (12.0-15.0); WHITE BLOOD COUNT 9.5 x10^3/uL (4.8-10.8)
[2018-10-28 05:15] LABS: ALBUMIN 2.7 g/dL (3.2-5.5); ALBUMIN/GLOBULIN RATIO 0.8 (1.0-2.2); BILIRUBIN,TOTAL 0.3 mg/dL (0.2-1.0); CALCIUM 8.6 mg/dL (8.5-10.3); CREATININE 0.8 mg/dL (0.6-1.2); CRP - C-REACTIVE PROTEIN 3.8 mg/dL (0-1.0); MAGNESIUM 1.7 mg/dL (1.7-2.8); PHOSPHORUS 2.6 mg/dL (2.5-4.6); TOTAL PROTEIN 6.1 g/dL (6.7-8.2)
[2018-10-28] MEDS: NS W/20 MEQ KCL 1,000 ML IV SCH ×2 (05:46→19:29)
[2018-10-28] MEDS: CLOPIDOGREL 75 MG TABLET PO SCH (08:46)
[2018-10-28] MEDS: cefTRIAXone 2 GM in SODIUM CHLORIDE 0.9% MINIBAG 100 ML IV SCH (08:46)
[2018-10-28] MEDS: POLYETHYLENE GLYCOL 3350 17 GM PACKET PO SCH (08:46)
[2018-10-28] MEDS: METOPROLOL SUCCINATE 25 MG TABLET PO SCH (08:46)
[2018-10-28] MEDS ORDERED: POTASSIUM CHLORIDE 20 MEQ TABLET PO SCH (11:47)
--- NOTE | 2018-10-28 11:47 | PROVIDER PROGRESS NOTE ---
Subjective - Prog Note Date Prog Note Date: 10/28/18 Prog Note Time: 11:47 - Subjective Pt reports feeling: Improved Current Medications - Current Medications Current Medications: Active Medications: Clopidogrel Bisulfate (Plavix) 75 mg PO DAILY WES Potassium Chloride/Sodium Chloride (Normal Saline 0.9% W/20 Meq Kcl) 1,000 mls @ 83.333 mls/hr IV .Q12H WES Ceftriaxone Sodium 2 gm/ (Sodium Chloride) 100 mls @ 200 mls/hr IV DAILY WES Lidocaine HCl (Xylocaine Uro-Jet 2%) 2.5 ml UR Q6H PRN Metoprolol Succinate (Toprol Xl) 25 mg PO DAILY WES Nitroglycerin (Nitrostat) 0.4 mg SL PRN PRN Polyethylene Glycol (Miralax) 17 gm PO DAILY WES Potassium Chloride (K-Dur) 40 meq PO ONCE WES Rocephin 2 gm IV Q24H HOME meds: Baclofen 10 mg PO TID 08/27/18 Clopidogrel [Plavix] 75 mg PO DAILY 08/27/18 Docusate Calcium 240 mg PO BID 08/27/18 Finasteride 5 mg PO DAILY 08/27/18 Hydrochlorothiazide 25 mg PO DAILY 08/27/18 Losartan Potassium 100 mg PO DAILY 08/27/18 Metoprolol Tartrate 50 mg PO BID 08/27/18 Nitroglycerin 0.4 mg SL PRN PRN 08/27/18 Simvastatin [Zocor] 40 mg PO QPM 08/27/18 Tamsulosin [Flomax] 0.4 mg PO DAILY 08/27/18 amLODIPine [Norvasc] 5 mg PO DAILY 08/27/18 raNITIdine [Zantac] 150 mg PO BID 08/27/18 Dronabinol 2.5 mg PO 0700,1600 10/26/18 Mirtazapine [Remeron] 15 mg PO DAILY 10/26/18 Ondansetron [Ondansetron Odt] 8 mg PO PRN PRN 10/26/18 [place]-3 Acid Ethyl Esters [Lovaza] 1 cap PO DAILY 10/27/18 cephALEXin [Cephalexin] 500 mg PO [id number] 10/27/18 Objective - Vital Signs/Intake & Output Reviewed Vital Signs: Yes Vital Signs: Vital Signs x48h Temp Pulse Resp BP Pulse Ox 10/28/18 07:32 36.9 C 78 14 127/71 97 10/28/18 05:54 36.8 C 73 16 123/65 94 Intake & Output: Intake & Output 10/25/18 10/26/18 10/27/18 10/28/18 23:59 23:59 23:59 23:59 Intake Total 835 1191.663 Output Total 200 800 Balance 635 391.663 - Objective General Appearance: positive: No acute distress, Lethargic Eyes Bilateral: positive: PERRL Eyes: OU Conjunctivae pale ENT: positive: Pharynx nml, No signs of dehydration Neck: positive: Thyroid nml, No JVD, Trachea midline Respiratory: positive: Chest non-tender, No respiratory distress, Breath sounds nml, Other (diminished) Cardiovascular: positive: Regular rate & rhythm, No gallop, Systolic murmur, Decreased pulse(s) Peripheral Pulses: 1+ Radial (R), 1+ Radial (L) Abdomen: positive: Non-tender, Nml bowel sounds, Hepatomegaly Back: positive: Nml inspection Skin: positive: Color nml, No rash, Warm, Dry Extremities: positive: Non-tender, Full ROM, Pedal edema, Joint swelling Neurologic/Psychiatric: positive: Disoriented to place, Disoriented to time, Weakness, Sensory loss, Slurred/abnml speech, Depressed mood/affect Reflexes: Bicep (R): 3+, Bicep (L): 3+ - Lab Results Fish Bones: 10/28/18 04:50 10/28/18 04:50 Other Labs: Lab Results x24hrs 10/28/18 10/28/18 10/28/18 Range/Units 04:50 04:50 04:50 WBC 9.5 (4.8-10.8) x10^3/uL RBC 3.60 L (4.70-6.10) 10^6/uL Hgb 9.9 L (14.0-18.0) g/dL Hct 31.5 L (42.0-52.0) % MCV 87.5 (80.0-94.0) fL MCH 27.5 (27.0-31.0) pg MCHC 31.4 L (32.0-36.0) g/dL RDW 17.2 H (12.0-15.0) % Plt Count 296 (130-450) 10^3/uL MPV 8.9 (7.4-11.4) fL Neut # (Auto) 6.0 (1.5-6.6) 10^3/uL Lymph # (Auto) 2.2 (1.5-3.5) 10^3/uL [place] # (Auto) 0.8 (0.0-1.0) 10^3/uL Eos # (Auto) 0.4 (0.0-0.7) 10^3/uL Baso # (Auto) 0.0 (0.0-0.1) 10^3/uL Absolute Nucleated RBC 0.00 x10^3/uL Nucleated RBC % 0.0 /100WBC VBG pH (7.31-7.41) VBG pCO2 (41-51) mmHg VBG pO2 (25-47) mmHg VBG HCO3 (23-28) mmol/L VBG Total CO2 (24-29) mmol/L VBG O2 Saturation (60-80) % VBG Base Excess (-2 - +2) mmol/L Sodium 143 (135-145) mmol/L Potassium 3.2 L (3.5-5.0) mmol/L Chloride 106 (101-111) mmol/L Carbon Dioxide 29 (21-32) mmol/L Anion Gap 8.0 (6-13) BUN 7 (6-20) mg/dL Creatinine 0.8 (0.6-1.2) mg/dL Estimated GFR (MDRD) 94 (>89) Glucose 95 (70-100) mg/dL Lactic Acid 1.4 (0.5-2.2) mmol/L Calcium 8.6 (8.5-10.3) mg/dL Phosphorus 2.6 (2.5-4.6) mg/dL Magnesium 1.7 (1.7-2.8) mg/dL Total Bilirubin 0.3 (0.2-1.0) mg/dL AST 13 (10-42) IU/L ALT 13 (10-60) IU/L Alkaline Phosphatase 66 (42-121) IU/L C-Reactive Protein 3.8 H (0-1.0) mg/dL Total Protein 6.1 L (6.7-8.2) g/dL Albumin 2.7 L (3.2-5.5) g/dL Globulin 3.4 (2.1-4.2) g/dL Albumin/Globulin Ratio 0.8 L (1.0-2.2) Lipase (22-51) U/L TSH (0.34-5.60) uIU/mL Urine Color Urine Clarity (CLEAR) Urine pH (5.0-7.5) PH Ur Specific [place] (1.002-1.030) Urine Protein (NEGATIVE) mg/dL Urine Glucose (UA) (NEGATIVE) mg/dL Urine Ketones (NEGATIVE) mg/dL Urine Occult Blood (NEGATIVE) Urine Nitrite (NEGATIVE) Urine Bilirubin (NEGATIVE) Urine Urobilinogen (NORMAL) E.U./dL Ur Leukocyte Esterase (NEGATIVE) Urine RBC (0-5) /HPF Urine WBC (0-3) /HPF Ur Squamous Epith Cells (<= Few) Urine Bacteria (None Seen) /HPF Ur Microscopic Review Urine Culture Comments Urine Opiates Screen (NEGATIVE) Ur Oxycodone Screen (NEGATIVE) Urine Methadone Screen (NEGATIVE) Ur Propoxyphene Screen (NEGATIVE) Ur Barbiturates Screen (NEGATIVE) Ur Tricyclics Screen (NEGATIVE) Ur Phencyclidine Scrn (NEGATIVE) Ur Amphetamine Screen (NEGATIVE) U Methamphetamines Scrn (NEGATIVE) U Benzodiazepines Scrn (NEGATIVE) Urine Cocaine Screen (NEGATIVE) U Cannabinoids Screen (NEGATIVE) Ethyl Alcohol mg/dL 10/28/18 10/27/18 10/27/18 Range/Units 04:50 18:15 14:54 WBC (4.8-10.8) x10^3/uL RBC (4.70-6.10) 10^6/uL Hgb (14.0-18.0) g/dL Hct (42.0-52.0) % MCV (80.0-94.0) fL MCH (27.0-31.0) pg MCHC (32.0-36.0) g/dL RDW (12.0-15.0) % Plt Count (130-450) 10^3/uL MPV (7.4-11.4) fL Neut # (Auto) (1.5-6.6) 10^3/uL Lymph # (Auto) (1.5-3.5) 10^3/uL [place] # (Auto) (0.0-1.0) 10^3/uL Eos # (Auto) (0.0-0.7) 10^3/uL Baso # (Auto) (0.0-0.1) 10^3/uL Absolute Nucleated RBC x10^3/uL Nucleated RBC % /100WBC VBG pH 7.419 H (7.31-7.41) VBG pCO2 49.6 (41-51) mmHg VBG pO2 27.6 (25-47) mmHg VBG HCO3 31.4 H (23-28) mmol/L VBG Total CO2 32.9 H (24-29) mmol/L VBG O2 Saturation 54.3 L (60-80) % VBG Base Excess 5.9 H (-2 - +2) mmol/L Sodium (135-145) mmol/L Potassium (3.5-5.0) mmol/L Chloride (101-111) mmol/L Carbon Dioxide (21-32) mmol/L Anion Gap (6-13) BUN (6-20) mg/dL Creatinine (0.6-1.2) mg/dL Estimated GFR (MDRD) (>89) Glucose (70-100) mg/dL Lactic Acid (0.5-2.2) mmol/L Calcium (8.5-10.3) mg/dL Phosphorus (2.5-4.6) mg/dL Magnesium (1.7-2.8) mg/dL Total Bilirubin (0.2-1.0) mg/dL AST (10-42) IU/L ALT (10-60) IU/L Alkaline Phosphatase (42-121) IU/L C-Reactive Protein (0-1.0) mg/dL Total Protein (6.7-8.2) g/dL Albumin (3.2-5.5) g/dL Globulin (2.1-4.2) g/dL Albumin/Globulin Ratio (1.0-2.2) Lipase (22-51) U/L TSH 1.29 (0.34-5.60) uIU/mL Urine Color YELLOW Urine Clarity CLEAR (CLEAR) Urine pH 6.0 (5.0-7.5) PH Ur Specific [place] 1.010 (1.002-1.030) Urine Protein NEGATIVE (NEGATIVE) mg/dL Urine Glucose (UA) NEGATIVE (NEGATIVE) mg/dL Urine Ketones NEGATIVE (NEGATIVE) mg/dL Urine Occult Blood SMALL H (NEGATIVE) Urine Nitrite NEGATIVE (NEGATIVE) Urine Bilirubin NEGATIVE (NEGATIVE) Urine Urobilinogen 0.2 (NORMAL) (NORMAL) E.U./dL Ur Leukocyte Esterase NEGATIVE (NEGATIVE) Urine RBC 0-5 (0-5) /HPF Urine WBC 0-3 (0-3) /HPF Ur Squamous Epith Cells NONE SEEN (<= Few) Urine Bacteria None Seen (None Seen) /HPF Ur Microscopic Review INDICATED Urine Culture Comments NOT INDICATED Urine Opiates Screen NEGATIVE (NEGATIVE) Ur Oxycodone Screen NEGATIVE (NEGATIVE) Urine Methadone Screen NEGATIVE (NEGATIVE) Ur Propoxyphene Screen NEGATIVE (NEGATIVE) Ur Barbiturates Screen NEGATIVE (NEGATIVE) Ur Tricyclics Screen NEGATIVE (NEGATIVE) Ur Phencyclidine Scrn NEGATIVE (NEGATIVE) Ur Amphetamine Screen NEGATIVE (NEGATIVE) U Methamphetamines Scrn NEGATIVE (NEGATIVE) U Benzodiazepines Scrn NEGATIVE (NEGATIVE) Urine Cocaine Screen NEGATIVE (NEGATIVE) U Cannabinoids Screen POSITIVE H (NEGATIVE) Ethyl Alcohol mg/dL 10/27/18 10/27/18 Range/Units 14:43 14:43 WBC 11.4 H (4.8-10.8) x10^3/uL RBC 3.99 L (4.70-6.10) 10^6/uL Hgb 10.9 L (14.0-18.0) g/dL Hct 35.0 L (42.0-52.0) % MCV 87.7 (80.0-94.0) fL MCH 27.3 (27.0-31.0) pg MCHC 31.1 L (32.0-36.0) g/dL RDW 17.2 H (12.0-15.0) % Plt Count 318 (130-450) 10^3/uL MPV 8.9 (7.4-11.4) fL Neut # (Auto) 7.9 H (1.5-6.6) 10^3/uL Lymph # (Auto) 2.2 (1.5-3.5) 10^3/uL [place] # (Auto) 0.8 (0.0-1.0) 10^3/uL Eos # (Auto) 0.4 (0.0-0.7) 10^3/uL Baso # (Auto) 0.1 (0.0-0.1) 10^3/uL Absolute Nucleated RBC 0.00 x10^3/uL Nucleated RBC % 0.0 /100WBC VBG pH (7.31-7.41) VBG pCO2 (41-51) mmHg VBG pO2 (25-47) mmHg VBG HCO3 (23-28) mmol/L VBG Total CO2 (24-29) mmol/L VBG O2 Saturation (60-80) % VBG Base Excess (-2 - +2) mmol/L Sodium 141 (135-145) mmol/L Potassium 3.4 L (3.5-5.0) mmol/L Chloride 103 (101-111) mmol/L Carbon Dioxide 30 (21-32) mmol/L Anion Gap 8.0 (6-13) BUN 10 (6-20) mg/dL Creatinine 1.1 (0.6-1.2) mg/dL Estimated GFR (MDRD) 65 L (>89) Glucose 112 H (70-100) mg/dL Lactic Acid (0.5-2.2) mmol/L Calcium 8.8 (8.5-10.3) mg/dL Phosphorus (2.5-4.6) mg/dL Magnesium (1.7-2.8) mg/dL Total Bilirubin 0.3 (0.2-1.0) mg/dL AST 13 (10-42) IU/L ALT 15 (10-60) IU/L Alkaline Phosphatase 67 (42-121) IU/L C-Reactive Protein (0-1.0) mg/dL Total Protein 6.5 L (6.7-8.2) g/dL Albumin 2.9 L (3.2-5.5) g/dL Globulin 3.6 (2.1-4.2) g/dL Albumin/Globulin Ratio 0.8 L (1.0-2.2) Lipase 29 (22-51) U/L TSH (0.34-5.60) uIU/mL Urine Color Urine Clarity (CLEAR) Urine pH (5.0-7.5) PH Ur Specific [place] (1.002-1.030) Urine Protein (NEGATIVE) mg/dL Urine Glucose (UA) (NEGATIVE) mg/dL Urine Ketones (NEGATIVE) mg/dL Urine Occult Blood (NEGATIVE) Urine Nitrite (NEGATIVE) Urine Bilirubin (NEGATIVE) Urine Urobilinogen (NORMAL) E.U./dL Ur Leukocyte Esterase (NEGATIVE) Urine RBC (0-5) /HPF Urine WBC (0-3) /HPF Ur Squamous Epith Cells (<= Few) Urine Bacteria (None Seen) /HPF Ur Microscopic Review Urine Culture Comments Urine Opiates Screen (NEGATIVE) Ur Oxycodone Screen (NEGATIVE) Urine Methadone Screen (NEGATIVE) Ur Propoxyphene Screen (NEGATIVE) Ur Barbiturates Screen (NEGATIVE) Ur Tricyclics Screen (NEGATIVE) Ur Phencyclidine Scrn (NEGATIVE) Ur Amphetamine Screen (NEGATIVE) U Methamphetamines Scrn (NEGATIVE) U Benzodiazepines Scrn (NEGATIVE) Urine Cocaine Screen (NEGATIVE) U Cannabinoids Screen (NEGATIVE) Ethyl Alcohol < 5.0 mg/dL ABX Reporting Has patient been on IV antibiotics over the past 48 hours?: Yes Assessment/Plan - Problem List (1) Acute metabolic encephalopathy Impression: -Known history of vascular dementia, last saw neurology on 09/25/2018 who prescribed Sinemet, now stopped -Has home health services who notes that the patient has been less responsive, had cold extremities, and appeared dehydrated prior to EMS being called -On my exam, the patient is disorientated, calls his son by the wrong name, and has problems answering simple questions -Contributing factors include; Nutritional disorders, polypharmacy, acute illness, history of vascular dementia, falls, DM2, status post CABG, status post CVA, history of depression, sleep deprivation, electrolyte abnormalities, renal insufficiency, hypoxia, and dehydration - Blood cultures show NGTD, TSH is WNLs, electrolyte abnormalities as expected with low PO intake -Sleepy today, also slept well overnight Plan: Maintain healthy sleep/wake schedule, prevent hypothermia, IVFs, echo ordered for Monday, hold all home meds, avoid narcotics, routine labs Leukocytosis -Mild tachycardia, 90-110s, chills, rigors, no documented fevers -WBC count 11.4, now down to 9.5 -Suspect this may be due to unresolved complicated UTI with recent failure to treatment -Continue Rocephin, maintain indwelling pitts for known urinary retention Plan: Continue Rocephin, blood cultures x2, routine labs, monitor for hypothermia Acute bacterial prostatitis -Recurrent UTI symptoms, dysuria, nocturia, frequency, incontinent, and delirium -UA collected in the ED does not show acute infection, but likely due to reduced bacterial count from recent treatment -Indwelling pitts for the patients known history of BPH, and urinary retention Plan: Continue indwelling pitts, obtain BC x2, then start Rocephin with transition to TMP-sulfa for a 28-day course Hypertension - Home meds include; Norvasc, HCTZ, metoprolol and losartan - Normotensive since only resuming BB with a blood pressure of 127/71, heart rate 70-80's Plan: Stop telemetry, await echo for possibly Monday Vascular Dementia -Memory impairment -Was referred to neurology by PCP and last saw Nadege Odonnell MD on 09/25/2018 -Since his stroke in 2010, has had very profound short term memory loss -Status post Aricept, now stopped for falls -Scored 11 out of 30 on a MMSE exam given by PCP -Was started on sinemet 1 tab TID, now stopped by the patients son since his latest delirium episode, which led to this admission Plan: Continue to monitor, hold home meds, introduce gradually as needed, PT/OT evaluation Dysphagia -Noted on review of outside records, Dr. 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 -Echo for Monday, no recent echo is found -Cardiology [facility] clinic note from 03/2017; seen by Radha Segundo MD -Myoview 03/2014: EF 71%, no evidence of ischemia/infarction -Echocardiogram 03/2014 EF 55% with hypokinesis in the LAD territory -CT coronary 2012: BRANDT and 3 SVG grafts are patent -Stroke 2010 w/ right hemiparesis -First degree AV block Plan: Obtain an echocardiogram on Monday, avoid fluid boluses, and IV fluids tonight at only 83 mL per hour Dyspnea on exertion -Multifactorial; including COPD, deconditioning, malnutrition, prior obesity, combined diastolic and systolic heart failure with CAD Plan: Respiratory care, incentive spirometry, and duo-nebs for SOB as needed Coronary artery disease -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 since status post 4-vessel CABG in 2000 -Statin therapy with a goal of LDL less than 70 -Maintain B/P Plan: Continue to monitor, resume home Plavix and BB, hold all other meds for now Obstructive sleep apnea -Last known checkup was 12/15/2016: Also with hypopnea syndrome- noted to be severe -Last CPAP settings were; CPAP pressure at 7-10 cm H2O, was to return in 6 months -Unknown if the patient has been wearing his home device, suspect not since recent weight loss and increased confusion Plan: Continue to monitor, apply oxygen for saturation less than 92% Severe protein-calorie malnutrition -Recent weight loss since arriving at [facility] in which family reports up to 20 lbs -Ongoing loss of appetite, very few bowel movements, quick decline in function -Patients son notes that it first started after getting his first UTI -Status post Remeron and dronabinol started at [facility] to promote an appetite Plan: Nutritional consult, ordering a general diet with protein supplements, ST swallow evaluation Anorexia -Not purposeful, slow decline in eating, nausea and vomiting are ongoing -Weight loss as a result - Eating between 50-75% of meals, but with much coaching Plan: continue to encourage meals, PT/OT/ST, and dietitian to be consulted Polypharmacy -Outside records listed several sedating medications and on the patients last discharge including; Effexor, Baclofen, Dronabinol, Remeron, Sinemet, & [place] zil -All now on hold, since medication review given acute encephalopathy Plan: Continue to monitor, only resume essential medications, avoid narcotics, and encourage activity, fall precautions, plan to update PCP upon discharge
[2018-10-28] MEDS: LACTULOSE 10 GM /15 ML UDC PO SCH (16:27)
[2018-10-29] MEDS: SODIUM CHLORIDE FLUSH 0.9% 10 ML SYRINGE IVP SCH ×2 (01:11→07:50)
[2018-10-29 05:26] LABS: BASOPHILS % (AUTO) 0.4 %; EOSINOPHILS # (AUTO) 0.5 10^3/uL (0.0-0.7); EOSINOPHILS % (AUTO) 4.7 %; HGB - HEMOGLOBIN 9.4 g/dL (14.0-18.0); LYMPHOCYTES # (AUTO) 1.9 10^3/uL (1.5-3.5); LYMPHOCYTES % (AUTO) 18.5 %; MEAN CORPUSCULAR HGB CONC 30.6 g/dL (32.0-36.0); MEAN CORPUSCULAR VOLUME 88.2 fL (80.0-94.0); MEAN PLATELET VOLUME 9.1 fL (7.4-11.4); MONOCYTES # (AUTO) 0.9 10^3/uL (0.0-1.0); MONOCYTES % (AUTO) 8.6 %; NEUTROPHILS # (AUTO) 6.8 10^3/uL (1.5-6.6); NEUTROPHILS % (AUTO) 67.3 %; PLT - PLATELET COUNT 269 10^3/uL (130-450); RED BLOOD COUNT 3.48 10^6/uL (4.70-6.10); RED CELL DISTRIBUTION WIDTH 17.3 % (12.0-15.0); WHITE BLOOD COUNT 10.2 x10^3/uL (4.8-10.8)
[2018-10-29 05:28] LABS: ALBUMIN 2.5 g/dL (3.2-5.5); ALBUMIN/GLOBULIN RATIO 0.7 (1.0-2.2); BILIRUBIN,TOTAL 0.5 mg/dL (0.2-1.0); CALCIUM 8.5 mg/dL (8.5-10.3); CREATININE 0.8 mg/dL (0.6-1.2); TOTAL PROTEIN 6.1 g/dL (6.7-8.2)
[2018-10-29] MEDS: NS W/20 MEQ KCL 1,000 ML IV SCH (06:33)
--- NOTE | 2018-10-29 07:54 | PROVIDER PROGRESS NOTE ---
Subjective - Prog Note Date Prog Note Date: 10/29/18 Prog Note Time: 07:52 - Subjective Pt reports feeling: Improved Subjective: Carlin continues to be a very poor historian, and does not know why he is here, also that this is a hospital. He denies chest pain, nausea, vomiting, dizziness, shortness of breath or a new rash. His left arm is severely edematous from an infiltrated IV, which is causing him some discomfort. Current Medications - Current Medications Current Medications: Active Medications: Clopidogrel Bisulfate (Plavix) 75 mg PO DAILY WES Lidocaine HCl (Xylocaine Uro-Jet 2%) 2.5 ml UR Q6H PRN Metoprolol Succinate (Toprol Xl) 25 mg PO DAILY WES Nitroglycerin (Nitrostat) 0.4 mg SL PRN PRN Polyethylene Glycol (Miralax) 17 gm PO DAILY WES Potassium Chloride (K-Dur) 40 meq PO ONCE TMP-sulfa BID PO WES (extended course of 28-days for prostatitis) HOME meds: Clopidogrel [Plavix] 75 mg PO DAILY 08/27/18 Docusate Calcium 240 mg PO BID 08/27/18 Finasteride 5 mg PO DAILY 08/27/18 Nitroglycerin 0.4 mg SL PRN PRN 08/27/18 Simvastatin [Zocor] 40 mg PO QPM 08/27/18 Tamsulosin [Flomax] 0.4 mg PO DAILY 08/27/18 raNITIdine [Zantac] 150 mg PO BID 08/27/18 Ondansetron [Ondansetron Odt] 8 mg PO PRN PRN 10/26/18 [place]-3 Acid Ethyl Esters [Lovaza] 1 cap PO DAILY 10/27/18 Objective - Vital Signs/Intake & Output Reviewed Vital Signs: Yes Vital Signs: Vital Signs x48h Temp Pulse Resp BP Pulse Ox 10/29/18 07:33 36.9 C 75 16 119/63 95 10/29/18 02:28 75 94 10/29/18 00:00 36.9 C 82 16 120/73 96 Intake & Output: Intake & Output 10/26/18 10/27/18 10/28/18 10/29/18 23:59 23:59 23:59 23:59 Intake Total 835 2761.663 1100 Output Total 200 2300 375 Balance 635 461.663 725 - Objective General Appearance: positive: No acute distress, Alert Eyes Bilateral: positive: PERRL, No lid inflammation Eyes: OU Conjunctivae pale ENT: positive: Pharynx nml, No signs of dehydration Neck: positive: Thyroid nml, No JVD, Trachea midline Respiratory: positive: Chest non-tender, No respiratory distress, Breath sounds nml Cardiovascular: positive: Regular rate & rhythm, No gallop, Systolic murmur, Decreased pulse(s) Peripheral Pulses: 1+ Radial (R), 1+ Radial (L) Abdomen: positive: Non-tender, Nml bowel sounds, Hepatomegaly, Abnml bowel sounds (hypoactive, lower quadrants), Other (rounded, soft) Back: positive: Nml inspection Skin: positive: Color nml, No rash, Warm, Dry Extremities: positive: Non-tender, Full ROM Neurologic/Psychiatric: positive: Disoriented to place, Disoriented to time, Weakness, Sensory loss, Slurred/abnml speech (sluggish speech), Depressed mood/affect Reflexes: Bicep (R): 3+, Bicep (L): 3+ - Lab Results Fish Bones: 10/29/18 05:02 10/29/18 05:02 Other Labs: Lab Results x24hrs 10/29/18 10/29/18 Range/Units 05:02 05:02 WBC 10.2 (4.8-10.8) x10^3/uL RBC 3.48 L (4.70-6.10) 10^6/uL Hgb 9.4 L (14.0-18.0) g/dL Hct 30.7 L (42.0-52.0) % MCV 88.2 (80.0-94.0) fL MCH 27.0 (27.0-31.0) pg MCHC 30.6 L (32.0-36.0) g/dL RDW 17.3 H (12.0-15.0) % Plt Count 269 (130-450) 10^3/uL MPV 9.1 (7.4-11.4) fL Neut # (Auto) 6.8 H (1.5-6.6) 10^3/uL Lymph # (Auto) 1.9 (1.5-3.5) 10^3/uL [place] # (Auto) 0.9 (0.0-1.0) 10^3/uL Eos # (Auto) 0.5 (0.0-0.7) 10^3/uL Baso # (Auto) 0.0 (0.0-0.1) 10^3/uL Absolute Nucleated RBC 0.00 x10^3/uL Nucleated RBC % 0.0 /100WBC Sodium 144 (135-145) mmol/L Potassium 3.7 (3.5-5.0) mmol/L Chloride 110 (101-111) mmol/L Carbon Dioxide 26 (21-32) mmol/L Anion Gap 8.0 (6-13) BUN 7 (6-20) mg/dL Creatinine 0.8 (0.6-1.2) mg/dL Estimated GFR (MDRD) 94 (>89) Glucose 97 (70-100) mg/dL Calcium 8.5 (8.5-10.3) mg/dL Total Bilirubin 0.5 (0.2-1.0) mg/dL AST 13 (10-42) IU/L ALT 11 (10-60) IU/L Alkaline Phosphatase 61 (42-121) IU/L Total Protein 6.1 L (6.7-8.2) g/dL Albumin 2.5 L (3.2-5.5) g/dL Globulin 3.6 (2.1-4.2) g/dL Albumin/Globulin Ratio 0.7 L (1.0-2.2) ABX Reporting Has patient been on IV antibiotics over the past 48 hours?: Yes Assessment/Plan - Problem List (1) Acute metabolic encephalopathy Impression: Left arm swelling - Severe swelling of the entire left arm originating from the AC, extending to just before the axilla and stopping near the left wrist - NS with 20 Kcl was infusing, now stopped, removed IV - Wrapped with NIMISHA and gauze, applied warm packs and elevated - Nursing checked on procedures for extravasation, which this solution was not a high enough K+ concentration to require an antidote Plan: Continue to wrap, ensure good radial pulse to the left extremity, keep elevated, treat for pain with tylenol if needed, orders to discontinue IV for lack of access, changing IV antibiotic to PO to ensure tolerance since his PO intake is poor Acute metabolic encephalopathy -Known history of vascular dementia, last saw neurology on 09/25/2018 who prescribed Sinemet, now stopped -Has home health services who notes that the patient has been less responsive, had cold extremities, and appeared dehydrated prior to EMS being called -On my exam, the patient is disorientated, calls his son by the wrong name, and has problems answering simple questions -Contributing factors include; Nutritional disorders, polypharmacy, acute illness, history of vascular dementia, falls, DM2, status post CABG, status post CVA, history of depression, sleep deprivation, electrolyte abnormalities, renal insufficiency, hypoxia, and dehydration - Blood cultures show NGTD, TSH is WNLs, electrolyte abnormalities as expected with low PO intake -Slept well overnight, still with profound confusion, OT ordered to assess mini- mental if possible Plan: Maintain healthy sleep/wake schedule, prevent hypothermia, echo ordered for Monday, hold all home meds, avoid narcotics, routine labs Leukocytosis -Mild tachycardia, 90-110s, chills, rigors, no documented fevers -WBC count 11.4, now down to 10.2 -Suspect this may be due to unresolved complicated UTI with recent failure to treatment -S/p Rocephin, now starting TMP-sulfa PO, maintain indwelling pitts for known urinary retention Plan: Change Rocephin IV to TMP-sulfa to ensure tolerance since PO intake is poor, routine labs, monitor for hypothermia Acute bacterial prostatitis -Recurrent UTI symptoms, dysuria, nocturia, frequency, incontinent, and delirium -UA collected in the ED does not show acute infection, but likely due to reduced bacterial count from recent treatment -Indwelling pitts for the patients known history of BPH, and urinary retention - A new prescription for TMP-sulfa has been sent to be continued for 26 more days to prepare for discharge Plan: Continue indwelling pitts, obtain BC x2, change Rocephin IV for lack of access to TMP-sulfa for a 28-day course to ensure tolerance Hypertension - Home meds include; Norvasc, HCTZ, metoprolol and losartan - Normotensive since only resuming BB with a blood pressure of , 119/63 heart rate 70-80's Plan: Await echo for possibly Monday, if a second agent needs to be started, this should be Spironolactone to treat pulmonary HTN Vascular Dementia -Memory impairment for several years -Was referred to neurology by PCP and last saw Nadege Odonnell MD on 09/25/2018 - Per neurology, Parkinson's disease is a great possibility, and was started on Sinemet- now stopped -Since his stroke in 2010, has had very profound short term memory loss -Status post Aricept, now stopped for falls -Scored 11 out of 30 on a MMSE exam given by PCP -Was started on sinemet 1 tab TID, now stopped by the patients son since his latest delirium episode, which led to this admission - Patient has profound neuropathy (for the past several years), and demonstrates neuromuscular difficulties on exam - 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, but recent (new) incontinence of bladder and bowel, patient is unaware that he is wet, so will just sit in his wet pants per son - Imaging on this admission, head CT shows physical evidence of old lacunar infarcts of the bilateral thalami and basal ganglia (seen on prior exams), head- white differentiation is distinct - Diffuse chronic microangiopathic white matter changes are evident, the ventricles and cortical sulci are enlarged, consistent with age-related tissue loss - Polypharmacy was also noted on this admission, and since has had a drastic reduction in potential harmful agents - The patient's son confirms that his father's ability to walk is very limited, and has had several non-injury falls within the past 1 year - Patient demonstrates profound deficits while eating with almost not knowing what to do with the food as it comes near his mouth - The patient's sonJus) requests a Palliative care consult, and a Hospice brochure was given as well Plan: Continue to monitor, hold home meds, introduce gradually as needed, PT/OT/ST evaluation, frequent/attentive nursing cares please Dysphagia -Noted on review of outside records, Dr. Burt has ordered an Esophagram without a speech evaluation- no completed -ST now ordered - Does not demonstrate coughing after meals or thin liquids at this time, but a professional evaluation is indicated for safety Plan: ST, dietitian consult, and supervised meals with nursing until swallow evaluation COPD - Status post left lobectomy (unknown year) from histoplasmosis - Heavy tobacco user 2-3 PPD x25 years, quit in 2000 - No home oxygen or chronic inhalers, no recent PNA - Complains of recent cough, +orthopnea, unknown compliance in the recent past with home CPAP -VBG shows alkolosis, with a pH of 7.419 Plan: Nebulizers per RT if indicated, incentive spirometry 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 -Echo for Monday, no recent echo is found -Cardiology [facility] clinic note from 03/2017; seen by Radha Segundo MD -Myoview 03/2014: EF 71%, no evidence of ischemia/infarction -Echocardiogram 03/2014 EF 55% with hypokinesis in the LAD territory -CT coronary 2012: BRANDT and 3 SVG grafts are patent -Stroke 2010 w/ right hemiparesis -First degree AV block Plan: Obtain an echocardiogram today, if a second agent is needed for HTN, add spironolactone Dyspnea on exertion -Multifactorial; including COPD, deconditioning, malnutrition, prior obesity, combined diastolic and systolic heart failure with CAD Plan: Respiratory care, incentive spirometry, and duo-nebs for SOB as needed Coronary artery disease -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 Plavix since status post 4-vessel CABG in 2000 -Statin therapy with a goal of LDL less than 70 -Maintain B/P Plan: Continue to monitor, resume home Plavix and BB, hold all other meds for now Obstructive sleep apnea -Last known checkup was 12/15/2016: Also with hypopnea syndrome- noted to be severe -Last CPAP settings were; CPAP pressure at 7-10 cm H2O, was to return in 6 months -Unknown if the patient has been wearing his home device, suspect not since recent weight loss and increased confusion Plan: Continue to monitor, apply oxygen for saturation less than 92% Severe protein-calorie malnutrition -Recent weight loss since arriving at [facility] in which family reports up to 20 lbs -Ongoing loss of appetite, very few bowel movements, quick decline in function -Patients son notes that it first started after getting his first UTI -Status post Remeron and dronabinol started at [facility] to promote an appetite - Eating 25-50% since admission, now ordered supplemental shakes Plan: Nutritional consult, ordering a general diet with protein supplements, ST swallow evaluation Anorexia -Not purposeful, slow decline in eating, nausea and vomiting are ongoing -Weight loss as a result - Eating between 25-50% of meals, but with much coaching - Likely a result of advanced dementia Plan: continue to encourage meals, PT/OT/ST, and dietitian to be consulted Polypharmacy -Outside records listed several sedating medications and on the patients last discharge including; Effexor, Baclofen, Dronabinol, Remeron, Sinemet, & Donepezil -All now on hold, since medication review given acute encephalopathy - Home med list was cleaned up, eliminating any meds that can cause sedation/confusion - A new home med list was provided to the patient's son Plan: Continue to monitor, only resume essential medications, avoid narcotics, and encourage activity, fall precautions, plan to update PCP upon discharge
[2018-10-29] MEDS: METOPROLOL SUCCINATE 25 MG TABLET PO SCH (09:03)
[2018-10-29] MEDS: CLOPIDOGREL 75 MG TABLET PO SCH (09:03)
[2018-10-29] MEDS: LACTULOSE 10 GM /15 ML UDC PO SCH (09:03)
[2018-10-29] MEDS: POLYETHYLENE GLYCOL 3350 17 GM PACKET PO SCH (09:04)
[2018-10-29] MEDS ORDERED: POTASSIUM CHLORIDE 20 MEQ TABLET PO SCH (09:59)
[2018-10-29] MEDS ORDERED: WHEAT DEXTRIN POWDER PACKET PO PRN (10:29)
[2018-10-29] MEDS: cefTRIAXone 2 GM in SODIUM CHLORIDE 0.9% MINIBAG 100 ML IV SCH (10:29)
[2018-10-29] MEDS: MAGNESIUM OXIDE 400 MG TABLET PO SCH ×2 (10:47→15:58)
[2018-10-29] MEDS: SULFAMETH/TRIMETH DS 800/160 MG TABLET PO SCH ×2 (10:47→20:09)
--- NOTE | 2018-10-29 12:14 | ADVANCE CARE PLANNING NOTE ---
Advance Care Planning - Planning Encounter Date: 10/29/18 Time: 12:22 Purpose: To establish goals of care, confirm code status, and provide resources if needed. Parties in Attendance: The patient (initially) Carlin Piedra, his son- Jus, his fiance- Vangie, social work- Arabella, and myself- PIETRO Palma Decisional Capacity of the Patient: The patient has no evidence of awareness and lacks the ability to make medical decisions largely due to his advanced dementia, confirmed on physical imaging. - Diagnosis for Encounter (1) Acute metabolic encephalopathy Summary: -Known history of vascular dementia, last saw neurology on 09/25/2018 who prescribed Sinemet, now stopped -Has home health services who notes that the patient has been less responsive, had cold extremities, and appeared dehydrated prior to EMS being called -On my exam, the patient is disorientated, calls his son by the wrong name, and has problems answering simple questions -Contributing factors include; Nutritional disorders, polypharmacy, acute illness, history of vascular dementia, falls, DM2, status post CABG, status post CVA, history of depression, sleep deprivation, electrolyte abnormalities, renal insufficiency, hypoxia, and dehydration - Blood cultures show NGTD, TSH is WNLs, electrolyte abnormalities as expected with low PO intake -Slept well overnight, still with profound confusion, OT ordered to assess mini- mental if possible (2) Vascular dementia Summary: -Memory impairment for several years -Was referred to neurology by PCP and last saw Nadege Odonnell MD on 09/25/2018 - Per neurology, Parkinson's disease is a great possibility, and was started on Sinemet- now stopped -Since his stroke in 2010, has had very profound short term memory loss -Status post Aricept, now stopped for falls -Scored 11 out of 30 on a MMSE exam given by PCP -Was started on sinemet 1 tab TID, now stopped by the patients son since his latest delirium episode, which led to this admission - Patient has profound neuropathy (for the past several years), and demonstrates neuromuscular difficulties on exam - 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, but recent (new) incontinence of bladder and bowel, patient is unaware that he is wet, so will just sit in his wet pants per son - Imaging on this admission, head CT shows physical evidence of old lacunar infarcts of the bilateral thalami and basal ganglia (seen on prior exams), head- white differentiation is distinct - Diffuse chronic microangiopathic white matter changes are evident, the ventricles and cortical sulci are enlarged, consistent with age-related tissue loss - Polypharmacy was also noted on this admission, and since has had a drastic reduction in potential harmful agents - The patient's son confirms that his father's ability to walk is very limited, and has had several non-injury falls within the past 1 year - Patient demonstrates profound deficits while eating with almost not knowing what to do with the food as it comes near his mouth - The patient's son, Jus VARELA) requests a Palliative care consult, and a Hospice brochure was given as well - Encounter Subjective/Patient's Story: Jus, who is the patient's son (and POJean Claude) spoke for his father and notes that 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 He was strongly opposed to living a life in which he could no longer contribute and did not want to become a burden on anyone. He has a living will which states that he does not want to prolong life including no CPR, or other rescue measures. He does not want feeding tubes, and if he one day cannot eat, that is just how it is. The patient's son states that he worries that he may be neglectful if he does not call 911 in the event of his father becoming less responsive. He states that he just feels lost because sometimes his father has true moments of clarity and sounds completely reasonable, while other times he seems to make up things that did not happen. He re-stated many times how he knows that if his father could step out side his body today and see himself lying in bed, he would want his life to end. He requests more help by way of Palliative care/Hospice care and agrees that this is the best next step to take. Objective/Medical Story: Carlin Piedra (Jim) is an ill appearing 73-year old male with a past medical history of hypertension, hyperlipidemia, CAD, status post 4-vessel CABG, status post left lobectomy from histoplasmosis, COPD, vascular dementia, CVA w ith right sided residual, RAFAT, falls, urinary incontinence, BPH, urinary retention, recurrent UTI, recent weight loss and GERD. He was brought in by EMS for continued altered mental status and lethargy. He was seen in the ED yesterday after his home health nurse reported lethargy, weakness, low B/Ps, difficult to get an oxygen reading, very cold skin, rigors, and confusion. He was given 2-3L of IVFs, and sent home. His son, Carlin who lives with him reported that his father was much improved after his ED visit, but after he awoke this morning, the confusion worsened, along with the other symptoms, so again called EMS. Upon arrival today in the ED, the patient believed that he returned for a tetanus shot, had continued rigors, was mildly cyanotic, cool clammy skin, mild nausea, normal vital signs except some tachycardia with heart rates 90-110's, light blood pressures 119/68, required no oxygen and was still confused. Labs showed an elevated WBC count of 11.4, anemia with an H/H of 10.9/35.0, normal platelets of 318, neut # 7.9, potassium 3.4, GFR 65, glucose 112, total protein 6.5, albumin 2.9, normal troponin, normal lipase, normal lactic acid of 2.0, UA was unremarkable, and + cannabinoid in MUDDs urine, but is prescribed dronabinol for appetite stimulation. Upon my interview with the patient's son, Carlin who states he is also his father's POA; he notes that he wonders if the culprit of his father's confusion has been the mix of new medication changes including the Sinemet from the neurologist causing poor appetite, worsening weakness, confusion, and overall expedited decline. He states that since his father was discharged from [facility] on 08/31/2018, his decline has been much worse, and feels that his UTI is still a problem. He will be admitted for inpatient care, a medication review, and further work up to his acute metabolic encephalopathy. * Today a family conference was held to discuss further goals of care, how to prevent hospital stays and how to best support the patient and his family through his end of life process. The patient's son, Jus was re-assured by myself and social work that we are reaching out to Palliative care to help with this process. Goals of Care: Provide quality of life by preventing trips to specialists, PCP, and hospital. Prevent injury, prevent infection which may cause discomfort. Plan: Meet with Alexandria Chapa-Palliative care on Monday10/30/2018 @ 1106 (pending Alexandria's approval). Order Hospice consult to arrange for a hospital bed and other supplies to be delivered prior to discharge, tentative discharge likely Tuesday 10/31. Continue indwelling pitts to provide comfort since the patient has been incontinent and becomes easily bothered by care givers changing him. Pre-send Metoprolol and TMP-sulfa to the pharmacy to be continued at home, son was given an updated new home med list. Code Status: Do Not Attempt Resuscitation Time spent on advance care plannin
[2018-10-30] MEDS: POLYETHYLENE GLYCOL 3350 17 GM PACKET PO SCH (07:32)
[2018-10-30] MEDS: SULFAMETH/TRIMETH DS 800/160 MG TABLET PO SCH ×2 (08:11→20:45)
[2018-10-30] MEDS: METOPROLOL SUCCINATE 25 MG TABLET PO SCH (08:11)
[2018-10-30] MEDS: LACTULOSE 10 GM /15 ML UDC PO SCH (08:11)
[2018-10-30] MEDS: MAGNESIUM OXIDE 400 MG TABLET PO SCH ×2 (08:11→19:15)
[2018-10-30] MEDS: CLOPIDOGREL 75 MG TABLET PO SCH (08:11)
[2018-10-30] MEDS ORDERED: ONDANSETRON 4 MG/2 ML VIAL IVP PRN (10:02)
[2018-10-30] MEDS ORDERED: ACETAMINOPHEN 325 MG TABLET PO PRN (10:03)
[2018-10-30] MEDS ORDERED: ONDANSETRON ODT 4 MG TABLET TL PRN (10:28)
--- NOTE | 2018-10-30 13:02 | PROVIDER PROGRESS NOTE ---
Objective - Vital Signs/Intake & Output Vital Signs: Vital Signs x48h Temp Pulse Resp BP Pulse Ox 10/30/18 08:05 36.8 C 81 18 117/63 97 Intake & Output: Intake & Output 10/27/18 10/28/18 10/29/18 10/30/18 23:59 23:59 23:59 23:59 Intake Total 835 2761.663 2704 300 Output Total 200 2300 1525 475 Balance 635 071.128 4793 -175 - Lab Results Fish Bones: 10/29/18 05:02 10/29/18 05:02 Assessment/Plan - Problem List (1) Acute metabolic encephalopathy Impression: pt is alert and oriented to person only today. history of vascular dementia. recent CT of head revealed unremarkable for acute findings. pt had multiple co- mortality including hx of vascular dementia, CVA, ACS, DM2, CKD, anorexia, severe protein-calorie malnutrition, physical deconditioning. pt's DPOA, son, wish to the best next step to have palliative, hospice consult and followup. Per palliative care provider reported, hospice care provider accepted pt and, pt is planned to d/c on tomorrow and followup by hospice care. hospice care: with hx of vascular dementia, multiple co-mortalities including hx of CVA, ACS/CAD, DM2, CKD, anorexia, severe protein-calorie malnutrition, physical deconditioning. pt's DPOA, son, wish to the best next step to have palliative, hospice consult and followup. pt was consulted with palliative and refer to hospice care. Per palliative care provider reported, hospice care provider accepted pt and, pt is planned to d/c on tomorrow and followup by hospice care. Severe protein-calorie malnutrition - pt had poor appetite and continue loss of weight continue Nutritional consult, ordering a general diet with protein supplements nurse report pt has no issue for his swallow Anorexia Poor appetite, hx of vascular dementia, multiple co-mortalities dietitian to be consulted plan to b/c with followup palliative and hospice care Left arm swelling improved. pt denies pain. caused by extravasation. Plan: precaution infection and clots. Continue to wrap, ensure good radial pulse to the left extremity, keep elevated, treat for pain with tylenol if needed, orders to discontinue IV for lack of access, changing IV antibiotic to PO to ensure tolerance since his PO intake is poor Leukocytosis resolved Acute bacterial prostatitis -Recurrent UTI symptoms, dysuria, nocturia, frequency, incontinent, and delirium -UA collected in the ED does not show acute infection, but likely due to reduced bacterial count from recent treatment -Indwelling pitts for the patients known history of BPH, and urinary retention - A new prescription for TMP-sulfa has been sent to be continued for 26 more days to prepare for discharge Plan: Continue indwelling pitts, obtain BC x2, change Rocephin IV for lack of access to TMP-sulfa for a 28-day course to ensure tolerance Hypertension stable, reconcile home meds Vascular Dementia severe vascular dementia, followup hospice and palliative care. COPD stable, Status post left lobectomy from histoplasmosis, pt was reported by Heavy tobacco user 2-3 PPD x25 years, quit in 2000 continue RT treatment PRN, incentive spirometry. hx of Coronary artery disease continue Plavix Obstructive sleep apnea hx of RAFAT, Unknown if the patient has been wearing his home device, suspect not since recent weight loss and increased confusion. continue support pt as needed.
--- NOTE | 2018-10-30 17:53 | CONSULTATION NOTE ---
Palliative Care Consultation - Referral Referring Provider: Christian WESTBROOK Time of Visit: 8979-1558 Referral setting: Hospitalized patient Referral Reason: Advanced Dementia/Weight loss/FTT - History of Present Illness Brief History of Present Illness: This is a 73-year-old gentleman who has had a rapid decline both functionally and cognitively over the last several months. He does have a known history of CVA in 2010, with right-sided residual limited at that point in time, he did need increased assistance and his son came up from [place] to help take care of him. Patient gradually improved, in fact was driving in April of this year, though most likely was not appropriate for driving, living independently with support from his son, and ambulatory with a walker. He had an acute ED visits with urinary symptoms in May, and has had a rapid decline since this time. Of most significance is been his weight loss, he has documented weight of 06/08/18as 245 pounds at the doctor's office, on 08/09 at [facility] 270 pounds, on his most recent doctor's appointment in mid September he was 195, and today he presents as 198. Patient when asked about this, though he does have significant cognitive decline and dementia, reports he is just not been hungry. He denies nausea, heartburn, any there has not been identified any underlying etiology. His son reports is getting more difficult for him to eat, with some food pocketing missing his mouth, and taking in less and less. Patient did have a hospitalization here the beginning of August for UTI, sepsis, and generalized weakness. He had in May started having symptoms of urinary retention, recurrent UTIs at that point in time, and more trouble with incontinence and BPH. Discharge from [facility] 08/31 he was sent to the [facility], unfortunately he did not participate in his rehab at that point, had been trialed on medications for his appetite without improvement, and initially on discharge home had improved briefly. He started eating and drinking, but was not making much progress, and was supported and seen at home by [facility] without a lot of progress. During this time patient had continued to deteriorate cognitively, actually fairly rapidly. He does have a known history of vascular dementia, but in May 2017 on the MMSE for his MD he scored 24 out of 30, and more recently in September at his primary care providers he scored 11 out of 30. He did have a neurology consult 09/25 and was started on Sinemet for presumed Parkinson's component, though this actually worsened patient's condition and added to his decline.He is very weak, and currently can only do a stand pivot. He is maximally dependent for ADLs, and has paid caregivers Monday through Monday 1 PM to 10 PM so his son and his fiqi can continue to work. Patient presents with being able to initiate responses, though they do not always match the question. Patient is not oriented fully as far as where he is at, he understands he is in the hospital, then is unclear where his home is. This is been quite distressing to the son, he does have a lot of word finding, he does actually admit he mostly gases, particularly in people start asking orientation questions around what is the date. Has, and is "I assume someone dropping on the head". So has a little bit of insight but not enough to grasp or participate much in the conversation particularly in any kind of review of systems. Palliative care to meet with family which includes son Carlin and his fiance Vangie to establish goals of care, and explore transitioning to hospice given his rapid decline. Medical/Surgical History - Past Medical History Cardiovascular: reports: Hypertension, Coronary artery disease, [place] Respiratory: reports: COPD, Pneumonia, Sleep apnea Neuro: Dementia, CVA, Peripheral neuropathy, Tremors Endocrine/Autoimmune: reports: Type 2 diabetes GI: reports: GERD, Other (dysphagia) SUPERINTENDENT TRANSPORTATION: reports: None : reports: Benign prostate hypertrophy, Retention, Incontinence, Renal insuffiency, Nocturia, Frequency HEENT: reports: Chronic vision loss, Chronic sinusitis, Chronic hearing loss Psych: reports: Depression Musculoskeletal: reports: Osteoarthritis, Chronic back pain Derm: reports: None MRSA Hx?: No - Past Surgical History General: reports: Other (lobectomy for histoplasmosis) Ortho: reports: Carpal Tunnel surgery Cardiovascular: reports: CABG Other past surgical history: lobectomy after histoplasmosis - Substance History Use: Uses substance without health or social issues: NONE, Other (hx of smoking) Abuse: Recurrent use of substance despite neg consequences: NONE Dependence: Experiences withdrawal or developed tolerances: NONE Social History - Living Situation Living arrangement: At home Living Situation: With family Support System: In May was obviously patient was declining, son and his fiance Vangie moved in with patient to help with care. Current set up is a are trying to still work, they work in [employer] quite near the home. They are living with him in his home. They are paying for [facility] senior care caregiving from 1 PM to 10 PM. Patient has been for over 30 years, son does still keep in contact with his mother, and has been using him for support. 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 He then went on to work at the [employer]. He does have a really close friend, is also been helping the son and support him in decision-making/goals of care. Family History - Family History Family History: Mother: , Father: Medications/Allergies - Medications Active Medication List: Active Medications Acetaminophen (Tylenol) 650 mg PO Q4HR PRN PRN Reason: Pain or Fever > 38C (100.4F) Clopidogrel Bisulfate (Plavix) 75 mg PO DAILY [facility] Last Admin: 10/30/18 08:11 Dose: 75 mg Lactobacillus Rhamnosus (Culturelle) 1 cap PO DAILY [facility] Lactulose (Enulose) 10 gm PO DAILY [facility] Last Admin: 10/30/18 08:11 Dose: 10 gm Lidocaine HCl (Xylocaine Uro-Jet 2%) 2.5 ml UR Q6H PRN PRN Reason: PAIN Last Admin: 10/27/18 19:44 Dose: 2.5 ml Magnesium Oxide (Mag Ox) 400 mg PO BIDWM [facility] Last Admin: 10/30/18 08:11 Dose: 400 mg Metoprolol Succinate (Toprol Xl) 25 mg PO DAILY [facility] Last Admin: 10/30/18 08:11 Dose: 25 mg Nitroglycerin (Nitrostat) 0.4 mg SL PRN PRN PRN Reason: Chest Pain Ondansetron HCl (Zofran Odt) 4 mg TL Q6HR PRN PRN Reason: Nausea / Vomiting Polyethylene Glycol (Miralax) 17 gm PO DAILY [facility] Last Admin: 10/30/18 07:32 Dose: Not Given Trimethoprim/Sulfamethoxazole (Bactrim Ds 800/160) 1 tab PO BID [facility] Last Admin: 10/30/18 08:11 Dose: 1 tab Wheat Dextrin (Benefiber) 1 packet PO DAILY PRN PRN Reason: Constipation Clopidogrel [Plavix] 75 mg PO DAILY 08/27/18 Docusate Calcium 240 mg PO BID 07/01/19 Nitroglycerin 0.4 mg SL PRN PRN 08/27/18 Simvastatin [Zocor] 40 mg PO QPM 08/27/18 raNITIdine [Zantac] 150 mg PO BID 08/27/18 Ondansetron [Ondansetron Odt] 8 mg PO PRN PRN 10/26/18 [place]-3 Acid Ethyl Esters [Lovaza] 1 cap PO DAILY 10/27/18 - Allergies Allergies/Adverse Reactions: Allergies Allergy/AdvReac Type Severity Reaction Status Date / Time Horse/Equine Containing Allergy Unknown Unknown Verified 10/26/18 12:38 Products lisinopril Allergy Unknown Verified 10/26/18 12:38 Review of Systems - Constitutional Constitutional: reports: Fatigue, Weakness, Weight loss. denies: Fever, Chills - Cardiovascular Cardiovascular: reports: Decr. exercise tolerance - Gastrointestinal Gastrointestinal: reports: Constipation (severe only 2 bms in 3 weeks; last one monday before admit;; 10/30 soft large BM documented) - Genitourinary Genitourinary: reports: Other (currently with pitts catheter; will keep for ease of caregiving; patient often not cooperative in brief changes for caregivers) - Musculoskeletal Musculoskeletal: reports: Muscle aches, Stiffness, Muscle weakness, Transfer issues (has lost ability to ambulate more than a few feet prior to hospitalization; now barely pivot transfer and needs cueing; much weaker) - Integumentary Integumentary: reports: Dryness - Neurological Neurological: reports: Dizziness (patient reports dizzyness bending forward), Memory problems - Psychiatric Psychiatric: reports: Depression, Anxiety, Other (mild paranoia) - Endocrine Endocrine: reports: Diabetes type 2 (new dx this year) - Hematologic/Lymphatic Hematologic/Lymphatic: reports: Anemia, Recurrent infections (utis related to bph) - All Other Systems All Other Systems: reports: Other (limited ROS) Physical Exam - Vital Signs Vital Signs: Vital Signs x48h Temp Pulse Resp BP Pulse Ox 10/30/18 16:00 37.0 C 69 20 119/67 98 - Physical Exam General Appearance: positive: Mild distress Eyes Bilateral: positive: Normal inspection ENT: positive: No signs of dehydration Neck: positive: Trachea midline Cardiovascular: positive: Regular rate & rhythm Respiratory: positive: No respiratory distress Abdomen: positive: Soft, Nml bowel sounds Skin: positive: Pallor, Dryness Extremities: positive: Other (severe LE weakness) Neurologic/Psychiatric: positive: Disoriented to place, Disoriented to time, Weakness, Flat affect Palliative Care - POLST Patient has POLST: Yes POLST Status: DNR, Comfort Measures (completed with Dr. Burt 07/2018) Pain: No pain (denies pain) - Palliative Care Discussion: Met with son Carlin, and jad Vences. They have been the primary caregivers, using some assistance from agency during their work shift. They do understand the patient has continued to have severe deterioration of his neurologic status, with increased cognitive changes, increasing disorientation, worsening functional status recent development of incontinence of bowel and bladder. Ferdinand his son is his D POA, Been somewhat overwhelmed by his ongoing deterioration, and now face a decision making regarding quality of life issues. There is really has been no definitive etiology for his rapid decline, his weight loss, and despite multiple attempts at different interventions have not seen any improvement particularly in the area of quality of life. We did discuss in the context of goals of care, if he it would be consistent with patient's values prior to his deterioration, to just focus on comfort, and to allow natural . Carlin is quite clear his father would not want to be hard to find quality of life in his current state of being, particularly with the increasing confusion and dependence. He has sought outside chromosomal disorders counselor regarding this including the patient's good friend, and his mother, and does feel like he is able to move forward with the focus of comfort. Counseling provided regarding the goals of hospice with no return to hospitalization, that they become the "911", and the focus is to relieve suffering and allowing natural . He feels this is consistent with what he wants to do for his father, but is concerned about "letting him down". He reports at baseline his father is a very proud man, and this would be just overwhelming. We did discuss in the context of talking with his father, the that I would introduce the team and concept of hospice though certainly he may not be able to comprehend.Follow-up with hospice medical laboratory manager, and did except for service, follow-up with medical clinic manager and opening is available on . This is communicated with his son, and second family meeting was held. Met with patient, simply explained that patient was continuing to get worse, we had hoped to be able to make him better, and revisited what patient's goals were. He does want to go home, but then became confused where home was. We did discuss in the context of what hospice would provide as far as helping take care of him and keep him comfortable, and help his son and Vangie. I do not believe he was able to participate in the context of medical decision making, but was in agreement if his son felt this was a good direction to go. He was not able to verbalize back though what we had talked about. This is very difficult for the son, he was quite tearful and appropriate and further reviewed again the hospice benefit and the goals of care. Results - Lab Results Lab results reviewed: Yes Fish Bones: 10/29/18 05:02 10/29/18 05:02 Impression and Recommendations - Palliative Care Impression: This is a 73-year-old gentleman who presents with ongoing acute cognitive decline, presenting again at [facility] with acute metabolic encephalopathy. He has ongoing functional decline, increased dependence for ADLs, and ongoing symptoms for urinary retention and BPH now with pitts placement for comfort. Given patient's ongoing deterioration regarding quality of life, and defining further goals of care, patient will be transitioned to hospice. Recommendations/Counseling Done: 1. Dementia, with rapid cognitive decline. Patient does have known vascular dementia, primary care records also Alzheimer's, as well as neurology was manan reyes underlying etiology is Parkinson's. Patient with increasing disorientation to time and place, does recognize son. Patient able to engage in conversation, has some insight into his deficits, but despite treatment of presumed underlying infection, and withdrawal of medications has not improved. 2. Weight loss. Patient with documented weight loss over the last 6 months of at least 45 to 50 pounds. Again no defined underlying etiology, has been trialed on medications. Patient also demonstrating advanced dementia symptoms of food pocketing, increased difficulty with swallowing, and more difficulty with feeding. They have been using supplements such as Ensure, but still has continued. 3. Generalized weakness. Patient currently is mostly bedbound, increased difficulty even pivoting to chair even with cueing, unpredictable as far as lower extremity strength. This too has been functional decline over several months, most acutely since August. 4. BPH. Patient does have a Pitts catheter, has been and developed incontinence, would recommend continued to ease caregiver burden. 5. Constipation. Patient will need ongoing monitoring and fairly aggressive bowel program given his history. Last bowel movement recorded 10/30 soft large BM here at hospital. 6. Advanced care planning. Family meeting with patient's son Carlin who is D POA and Vangie his fiance who is also caregiver. Discussed in the context of what his father would want if you are able to make decisions for himself, does believe this would not be defined as quality of life for him, and goals were defined to focus on comfort, and continue with transition to hospice team. This is communicated both to hospice medical laboratory manager, medical clinic manager, [employer] team as well as hospitalist. Will need recommendation from physical therapy, if able to return in wheelchair, or more likely need to BLS transfer. Goal to discharge tomorrow, and hospice is scheduled to admit on morning. Son is in agreement with this plan. Time Spent: 75 minutes with greater than 50% of this done in counseling regarding goals of care, coordination of care with hospice and inpatient team as well as anticipatory guidance.
[2018-10-30] MEDS: LACTOBACILLUS RHAMNOSUS GG CAPSULE PO SCH (19:15)
[2018-10-31 08:14] VITALS: BP 111/75
[2018-10-31] MEDS: METOPROLOL SUCCINATE 25 MG TABLET PO SCH (09:50)
[2018-10-31] MEDS: LACTOBACILLUS RHAMNOSUS GG CAPSULE PO SCH (09:50)
[2018-10-31] MEDS: MAGNESIUM OXIDE 400 MG TABLET PO SCH (09:50)
[2018-10-31] MEDS: SULFAMETH/TRIMETH DS 800/160 MG TABLET PO SCH (09:50)
[2018-10-31] MEDS: CLOPIDOGREL 75 MG TABLET PO SCH (09:50)
[2018-10-31] MEDS: LACTULOSE 10 GM /15 ML UDC PO SCH (09:50)
[2018-10-31] MEDS: POLYETHYLENE GLYCOL 3350 17 GM PACKET PO SCH (09:51)
--- NOTE | 2018-10-31 10:50 | Discharge Plan ---
Discharge Plan Problem Reviewed?: Yes Disposition: 50 Hospice/Home DC/Xfer Condition: Serious Prescriptions: Metoprolol Succinate 25 mg PO DAILY #30 tab.er.24h Sulfamethox/Trimeth 800/160 [Bactrim Ds] 1 each PO BID #52 tablet Diet: Regular Activity Restrictions: Activity as Tolerated Shower Restrictions: No (fall precaution) Instruction Topics: Hospice Health Concerns: anorexia, poor oral input and loss of weight. persistent confusion. vascular dementia. Plan of Treatment: followup hospice team for hospice care Care Goals: quality life Assessment: you are still confused today. you still only ate 25% of your diet, poor oral input. Additional Instructions or Follow Up instructions: please followup hospice team for hospice care Follow-Up Care: Hospice No Smoking: If you smoke, Please STOP! Call for help. Follow-up with: Abran Burt MD [Primary Care Provider] -
--- NOTE | 2018-10-31 11:29 | DISCHARGE SUMMARY ---
"Discharge Summary Discharge Date: 10/31/18 Discharging Provider: TRUJILLO Primary Care Provider: Dr. 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 Dyspnea on exertion Coronary artery disease Obstructive sleep apnea Severe protein-calorie malnutrition Anorexia Polypharmacy Discharge Diagnoses with Status of Each Condition: confusion persistent confusion, followup hospice care hospice care: followup hospice care Severe protein-calorie malnutrition Patient with documented weight loss over the last 6 months of at least 45 to 50 pounds, followup hospice care Anorexia pt ate 25% his meal, followup hospice care Vascular Dementia advanced, followup hospice care Left arm swelling stable Leukocytosis resolved bacterial prostatitis stable, continue home antibiotics to finish the treatment course Hypertension stable COPD stable hx of Coronary artery disease stable Obstructive sleep apnea stable Hx of CVA with right side weakness stable - HPI History of Present Illness: refer from Ms. Hickman's HPI on 10/27/18 Carlin Piedra (Jim) is an ill appearing 73-year old male with a past medical history of hypertension, hyperlipidemia, CAD, status post 4-vessel CABG, status post left lobectomy from histoplasmosis, COPD, vascular dementia, CVA with right sided residual, RAFAT, falls, urinary incontinence, BPH, urinary retention, recurrent UTI, recent weight loss and GERD. He was brought in by EMS for continued altered mental status and lethargy. He was seen in the ED yesterday after his home health nurse reported lethargy, weakness, low B/Ps, difficult to get an oxygen reading, very cold skin, rigors, and confusion. He was given 2-3L of IVFs, and sent home. His son, Carlin who lives with him reported that his father was much improved after his ED visit, but after he awoke this morning, the confusion worsened, along with the other symptoms, so again called EMS. Upon arrival today in the ED, the patient believed that he returned for a tetanus shot, had continued rigors, was mildly cyanotic, cool clammy skin, mild nausea, normal vital signs except some tachycardia with heart rates 90-110's, light blood pressures 119/68, required no oxygen and was still confused. Labs showed an elevated WBC count of 11.4, anemia with an H/H of 10.9/35.0, normal platelets of 318, neut # 7.9, potassium 3.4, GFR 65, glucose 112, total protein 6.5, albumin 2.9, normal troponin, normal lipase, normal lactic acid of 2.0, UA was unremarkable, and + cannabinoid in MUDDs urine, but is prescribed dronabinol for appetite stimulation. Upon my interview with the patient's son, Carlin who states he is also his father's POA; he notes that he wonders if the culprit of his father's confusion has been the mix of new medication changes including the Sinemet from the neurologist causing poor appetite, worsening weakness, confusion, and overall expedited decline. He states that since his father was discharged from [facility] on 08/31/2018, his decline has been much worse, and feels that his UTI is still a problem. He will be admitted for inpatient care, a medication review, and further work up to his acute metabolic encephalopathy. - CONSULTS | PROCEDURES Consultations: palliative care and hospice care Procedures: hospice care - HOSPITAL COURSE Hospital Course: pt was admitted for continued altered mental status and lethargy. CT of head was unremarkable for acute findings. pt had indwell urinary catheter with hx of UTI. pt was treated with antibiotics but pt persistently confused. pt lost his appetite, he ate 25% of his diet. pt had lost over the last 6 months of at least 45 to 50 pounds. pt has hx of advanced vascular dementia. pt's DPOA, his son, looked for quality life for pt, palliative car and hospice care for pt. Palliative and hospice care were consulted. Both palliative provider and Dr. Doe interviewed and saw pt. pt was accepted by Dr. Doe for hospice care. The detail hospital course is as the below. confusion persistent confusion, followup hospice care hospice care: followup hospice care Severe protein-calorie malnutrition Patient with documented weight loss over the last 6 months of at least 45 to 50 pounds, followup hospice care Anorexia pt ate 25% his meal, followup hospice care Vascular Dementia advanced, followup hospice care Left arm swelling stable Leukocytosis resolved bacterial prostatitis stable, continue home antibiotics to finish the treatment course. pt had home antibiotics Bactrim Hypertension stable COPD stable hx of Coronary artery disease stable Obstructive sleep apnea stable Hx of CVA with right side weakness stable - ALLERGIES Allergies/Adverse Reactions: Allergies Allergy/AdvReac Type Severity Reaction Status Date / Time Horse/Equine Containing Allergy Unknown Unknown Verified 10/26/18 12:38 Products lisinopril Allergy Unknown Verified 10/26/18 12:38 - MEDICATIONS Home Medications: Ambulatory Orders Medication Instructions Recorded Confirmed Clopidogrel [Plavix] 75 mg PO DAILY 08/27/18 10/27/18 Docusate Calcium 240 mg PO BID 08/27/18 10/27/18 Nitroglycerin 0.4 mg SL PRN PRN 08/27/18 10/27/18 Simvastatin [Zocor] 40 mg PO QPM 08/27/18 10/27/18 raNITIdine [Zantac] 150 mg PO BID 08/27/18 10/27/18 Ondansetron [Ondansetron Odt] 8 mg PO PRN PRN 10/26/18 10/27/18 [place]-3 Acid Ethyl Esters [Lovaza] 1 cap PO DAILY 10/27/18 10/27/18 Metoprolol Succinate 25 mg PO DAILY #30 tab.er.24h 10/29/18 Sulfamethox/Trimeth 800/160 1 each PO BID #52 tablet 10/29/18 [Bactrim Ds] - PHYSICAL EXAM AT DISCHARGE General Appearance: positive: No acute distress, Alert. negative: Lethargic Eyes Bilateral: positive: Normal inspection, PERRL, No lid inflammation, Conjunctivae nml ENT: positive: ENT inspection nml, Pharynx nml, No signs of dehydration. negative: Purulent nasal drainage, Pharyngeal erythema, Oral lesions Neck: positive: Nml inspection, Thyroid nml, No JVD, Trachea midline. negative: Thyromegaly, Lymphadenopathy (R), Lymphadenopathy (L), Stiff neck, Swelling/bruising, Tracheal deviation Respiratory: positive: Chest non-tender, No respiratory distress. negative: Wheezes, Rales, Rhonchi Cardiovascular: positive: Regular rate & rhythm, No murmur, No gallop. negative: Irregularly irregular, Extrasystoles, Tachycardia, Bradycardia, JVD present, Systolic murmur, Diastolic murmur Peripheral Pulses: positive: 2+ Abdomen: positive: Non-tender, No organomegaly, Nml bowel sounds, No distention. negative: Tenderness, Guarding, Rebound Back: positive: Nml inspection. negative: CVA tenderness (R), CVA tenderness (L) Skin: positive: Color nml, No rash, Warm, Dry. negative: Cyanosis, Diaphoresis, Pallor Extremities: positive: Non-tender. negative: Calf tenderness, Cherri's sign/cords Neurologic/Psychiatric: negative: Sensory loss, Facial droop, Slurred/abnml speech, Depressed mood/affect - LABS Result Diagrams: 10/29/18 05:02 10/29/18 05:02 - FOLLOW UP Follow Up: followup hospice care, and palliative care - TIME SPENT Time Spent in Discharge (Minutes): 55"
== END 2018-10-31 14:15 | disposition hospice, home (50) | DRG 70 ==
LOC: EDUNIT# → ED 13:53 → MS2 16:03
PROVIDERS: ADMIT Nurse Practitioner; ATTEND Nurse Practitioner Gerontology
DX: R41.82 Altered mental status, unspecified (principal); R53.1 Weakness; D64.9 Anemia, unspecified; G93.41 Metabolic encephalopathy; E43 Unspecified severe protein-calorie malnutrition; I69.951 Hemiplegia and hemiparesis following unspecified cerebrovascular disease affecting right dominant side; N41.0 Acute prostatitis; I10 Essential (primary) hypertension; F03.90 Unspecified dementia, unspecified severity, without behavioral disturbance, psychotic disturbance, mood disturbance, and anxiety; R33.9 Retention of urine, unspecified; N39.0 Urinary tract infection, site not specified; I50.40 Unspecified combined systolic (congestive) and diastolic (congestive) heart failure; B96.89 Other specified bacterial agents as the cause of diseases classified elsewhere; F01.50 Vascular dementia, unspecified severity, without behavioral disturbance, psychotic disturbance, mood disturbance, and anxiety; Z68.30 Body mass index [BMI] 30.0-30.9, adult; M79.89 Other specified soft tissue disorders; I11.0 Hypertensive heart disease with heart failure; J44.9 Chronic obstructive pulmonary disease, unspecified; I25.10 Atherosclerotic heart disease of native coronary artery without angina pectoris; G47.33 Obstructive sleep apnea (adult) (pediatric); I69.919 Unspecified symptoms and signs involving cognitive functions following unspecified cerebrovascular disease; E78.5 Hyperlipidemia, unspecified; I44.0 Atrioventricular block, first degree; N40.1 Benign prostatic hyperplasia with lower urinary tract symptoms; N39.498 Other specified urinary incontinence; R33.8 Other retention of urine; R35.1 Nocturia; R15.9 Full incontinence of feces; K21.9 Gastro-esophageal reflux disease without esophagitis; E11.51 Type 2 diabetes mellitus with diabetic peripheral angiopathy without gangrene; E11.42 Type 2 diabetes mellitus with diabetic polyneuropathy; E86.0 Dehydration; F32.9 Major depressive disorder, single episode, unspecified; R13.10 Dysphagia, unspecified; N28.9 Disorder of kidney and ureter, unspecified; R25.1 Tremor, unspecified; H54.7 Unspecified visual loss; J32.9 Chronic sinusitis, unspecified; H91.90 Unspecified hearing loss, unspecified ear; G89.29 Other chronic pain; M54.9 Dorsalgia, unspecified; M19.90 Unspecified osteoarthritis, unspecified site; K59.00 Constipation, unspecified; Z72.820 Sleep deprivation; Z66 Do not resuscitate; R09.02 Hypoxemia; R90.82 White matter disease, unspecified; Z51.5 Encounter for palliative care; Z74.09 Other reduced mobility; Z91.81 History of falling; Z79.02 Long term (current) use of antithrombotics/antiplatelets; Z79.899 Other long term (current) drug therapy; Z95.1 Presence of aortocoronary bypass graft; Z86.19 Personal history of other infectious and parasitic diseases; Z87.01 Personal history of pneumonia (recurrent); I25.2 Old myocardial infarction; Z90.2 Acquired absence of lung [part of]; Z87.891 Personal history of nicotine dependence; Z87.440 Personal history of urinary (tract) infections
CPT/HCPCS: 36415; 51701; 70450; 71046; 80053; 81001; 82803; 83605; 83690; 83735; 84100; 84443; 85025; 86140; 87040; 93005; 93306; 97162; 99223; 99285; A9270; 80306; 80320; 81003; 87086

== ENCOUNTER 2018-10-31 14:26 | Outpatient (CLI) | payer MEDICARE, OTHER | END 2018-10-31 14:27 | disposition home or self-care (01) | LOC: EMS 14:26 | PROVIDERS: ATTEND Surgery | DX: R41.82 Altered mental status, unspecified (principal); Z74.01 Bed confinement status | CPT/HCPCS: A0425; A0428 ==